=== PATIENT | female | born 1965 | race Caucasian/White ===

== ENCOUNTER 2020-02-18 06:45 | Outpatient (REF) | payer OTHER, SELFPAY ==
[2020-02-18 07:47] LABS: MANUAL DIFF FLAG NO
[2020-02-18 07:53] LABS: Basophils Absolute Auto 0.1 X10*3/uL (0.0-0.2); Basophils Percent Auto 0.5 % (0-2); Eosinophils Absolute Auto 0.2 X10*3/uL (0.0-0.4); Eosinophils Percent Auto 1.6 % (0-4); Hematocrit 44.4 % (37-47); Hemoglobin 14.3 g/dl (12.0-16.0); Imm Gran Abs Auto 0.07 X10*3/uL (0.00-0.03); Imm Gran Pct Auto 0.7 % (0.0-0.4); Lymphocytes Absolute Auto 2.8 X10*3/uL (1.2-4.9); Lymphocytes Percent Auto 29.3 % (20-40); Mean Corpuscular HGB Conc 32.2 g/dl (31.0-35.0); Mean Corpuscular Hemoglobin 29.6 pg (27.0-33.0); Mean Corpuscular Volume 91.9 fL (80-98); Mean Platelet Volume 9.8 fL (9.4-12.3); Monocytes Absolute Auto 0.4 X10*3/uL (0.1-1.2); Neutrophils Absolute Auto 6.2 X10*3/uL (2.0-8.3); Neutrophils Percent Auto 63.9 % (45-73); Platelet Count 294 X10*3/uL (160-400); Red Blood Count 4.83 X10*6/uL (4.20-5.50); Red Cell Distribution Width 13.1 % (11.0-16.0); White Blood Count 9.6 X10*3/uL (4.8-10.8)
[2020-02-18 08:06] LABS: Glucose Urine UA NEG (NEG); Leukocyte Esterase Urine NEG (NEG); Nitrite Urine NEG (NEG); Specific Gravity - Urine >= 1.030 (1.005-1.025); Urine Blood NEG (NEG); Urine Ketones NEG (NEG); Urine Protein NEG (NEG-TRACE)
[2020-02-18 08:07] LABS: Appearance Urine CLEAR; Color Urine YELLOW
[2020-02-18 08:27] LABS: Alanine Aminotransferase 79 U/L (0-31); Albumin Level 3.9 g/dL (3.5-5.0); Alkaline Phosphatase 96 U/L (39-117); Anion Gap 13 (12-20); Aspartate Amino Transferase 53 U/L (5-31); Bilirubin Total 0.4 mg/dL (0.0-1.0); Blood Urea Nitrogen 9 mg/dL (9-16); Calcium 8.4 mg/dL (8.4-10.2); Carbon Dioxide 26 mmol/L (22-29); Chloride 103 mmol/L (96-108); Cholesterol 215 mg/dL; Estimated Glomerular Filt Rate > 60; Glucose Fasting 165 mg/dL (60-99); HDL Cholesterol 26 mg/dL; LDL Cholesterol Calculated 130 mg/dl; Potassium 4.5 mmol/l (3.3-5.1); Sodium 137 mmol/L (135-145); Total Protein 7.1 g/dL (6.5-8.0); Triglycerides 296 mg/dL
[2020-02-18 08:34] LABS: TSH reflex Free T4 2.45 mIU/mL (0.32-4.0); Vitamin D 25-OH Total 35.4 ng/mL (>30)
[2020-02-18 10:14] LABS: Creatinine Urine 95.13 mg/dL; Microalbum/Creatinine Ratio Ur 9.4 ug/mg cr
== END 2020-02-18 06:46 | disposition home or self-care (01) ==
LOC: HO.LAB 06:45
PROVIDERS: Visit Provider Internal Medicine
DX: G47.33 Obstructive sleep apnea (adult) (pediatric) (principal); R53.83 Other fatigue; F17.200 Nicotine dependence, unspecified, uncomplicated; E11.9 Type 2 diabetes mellitus without complications; E78.00 Pure hypercholesterolemia, unspecified; E55.9 Vitamin D deficiency, unspecified
CPT/HCPCS: 36415; 80053; 80061; 81003; 82043; 82306; 84443; 85025

== ENCOUNTER 2020-04-24 09:23 | Outpatient (REF) | payer OTHER, SELFPAY | END 2020-04-24 09:24 | disposition home or self-care (01) | LOC: HO.LAB 09:23 | PROVIDERS: Visit Provider Internal Medicine | DX: Z20.822 Contact with and (suspected) exposure to COVID-19 (principal) | CPT/HCPCS: 36415; C9803; U0003 ==

== ENCOUNTER 2020-06-28 06:47 | Outpatient (REF) | payer OTHER, SELFPAY ==
[2020-06-28 07:14] LABS: MANUAL DIFF FLAG NO
[2020-06-28 07:22] LABS: Basophils Percent Auto 0.4 % (0-2); Eosinophils Absolute Auto 0.1 X10*3/uL (0.0-0.4); Eosinophils Percent Auto 1.4 % (0-4); Hemoglobin 14.8 g/dl (12.0-16.0); Imm Gran Abs Auto 0.11 X10*3/uL (0.00-0.03); Imm Gran Pct Auto 1.1 % (0.0-0.4); Lymphocytes Absolute Auto 2.9 X10*3/uL (1.2-4.9); Lymphocytes Percent Auto 28.9 % (20-40); Mean Corpuscular HGB Conc 32.9 g/dl (31.0-35.0); Mean Corpuscular Hemoglobin 29.8 pg (27.0-33.0); Mean Corpuscular Volume 90.7 fL (80-98); Mean Platelet Volume 10.1 fL (9.4-12.3); Monocytes Absolute Auto 0.5 X10*3/uL (0.1-1.2); Monocytes Percent Auto 4.4 % (2-11); Neutrophils Absolute Auto 6.5 X10*3/uL (2.0-8.3); Neutrophils Percent Auto 63.8 % (45-73); Platelet Count 289 X10*3/uL (160-400); Red Blood Count 4.96 X10*6/uL (4.20-5.50); White Blood Count 10.2 X10*3/uL (4.8-10.8)
[2020-06-28 07:57] LABS: Alanine Aminotransferase 79 U/L (0-31); Albumin Level 3.9 g/dL (3.5-5.0); Alkaline Phosphatase 122 U/L (39-117); Anion Gap 16 (12-20); Aspartate Amino Transferase 51 U/L (5-31); Bilirubin Total 0.8 mg/dL (0.0-1.0); Blood Urea Nitrogen 14 mg/dL (9-16); Calcium 9.1 mg/dL (8.4-10.2); Carbon Dioxide 27 mmol/L (22-29); Chloride 99 mmol/L (96-108); Cholesterol 222 mg/dL; Estimated Glomerular Filt Rate > 60; Gamma Glutamyl Transpeptidase 124 U/L (7-33); Glucose Fasting 238 mg/dL (60-99); HDL Cholesterol 28 mg/dL; LDL Cholesterol Calculated 129 mg/dl; Potassium 4.5 mmol/L (3.3-5.1); Sodium 137 mmol/L (135-145); Total Protein 7.2 g/dL (6.5-8.0); Triglycerides 328 mg/dL; Uric Acid 6.4 mg/dL (2.4-5.7)
[2020-06-28 08:06] LABS: Glucose Urine UA 100 MG/DL (NEG); Leukocyte Esterase Urine NEG (NEG); Nitrite Urine NEG (NEG); PH 6.5 (5.0-8.0); Specific Gravity - Urine 1.025 (1.005-1.025); Urine Blood NEG (NEG); Urine Ketones NEG (NEG); Urine Protein NEG (NEG-TRACE)
[2020-06-28 08:08] LABS: Erythrocyte Sedimentation Rate 29 MM/HR (0-20); Estimated Average Glucose 226 mg/dL; Hemoglobin A1c % 9.5 %
[2020-06-28 08:10] LABS: Appearance Urine CLEAR; Color Urine YELLOW; UACC Culture Trigger NO
[2020-06-28 08:16] LABS: TSH reflex Free T4 2.81 uIU/mL (0.32-4.0); Vitamin D 25-OH Total 40.3 ng/mL (>30)
[2020-06-28 08:24] LABS: Microalbum/Creatinine Ratio Ur 18.3 ug/mg cr
[2020-06-28 08:34] LABS: HBsAGNum1 0.19 S/CO (0.00-0.99); Hepatitis A Antibody IgM 0.15 Index (0-0.79); Hepatitis B Surface Antigen Negative (Negative); ~Hepatitis A Antibody IgM Nonreactive (Nonreactive)
[2020-06-28 08:57] LABS: HBS Num1 0.17 mIU/mL (0-7.99); HBc Num1 0.08 S/CO (0.00-0.79); Hepatitis B Core Antibody Nonreactive (Nonreactive); ~Hepatitis B Surface Antibody NONREACTIVE (Nonreactive); ~Hepatitis C Antibody Nonreactive (Nonreactive)
== END 2020-06-28 06:48 | disposition home or self-care (01) ==
LOC: HO.LAB 06:47
PROVIDERS: PCP Internal Medicine; Visit Provider Internal Medicine
DX: E11.9 Type 2 diabetes mellitus without complications (principal); R79.89 Other specified abnormal findings of blood chemistry; G47.33 Obstructive sleep apnea (adult) (pediatric); F17.200 Nicotine dependence, unspecified, uncomplicated; E78.00 Pure hypercholesterolemia, unspecified; M25.532 Pain in left wrist; E66.01 Morbid (severe) obesity due to excess calories; Z68.42 Body mass index [BMI] 45.0-49.9, adult; E55.9 Vitamin D deficiency, unspecified
CPT/HCPCS: 36415; 80053; 80061; 81003; 82043; 82306; 82977; 83036; 84443; 84550; 85025; 85652; 86704; 86706; 86709; 86803; 87340

== ENCOUNTER 2020-12-28 07:27 | Outpatient (REF) | payer OTHER, SELFPAY ==
[2020-12-28 08:11] LABS: MANUAL DIFF FLAG NO
[2020-12-28 08:20] LABS: Basophils Absolute Auto 0.1 X10*3/uL (0.0-0.2); Basophils Percent Auto 0.5 % (0-2); Eosinophils Absolute Auto 0.2 X10*3/uL (0.0-0.4); Eosinophils Percent Auto 1.5 % (0-4); Hemoglobin 14.8 g/dl (12.0-16.0); Lymphocytes Absolute Auto 2.9 X10*3/uL (1.2-4.9); Lymphocytes Percent Auto 28.6 % (20-40); Mean Corpuscular HGB Conc 32.2 g/dl (31.0-35.0); Mean Corpuscular Hemoglobin 29.4 pg (27.0-33.0); Mean Corpuscular Volume 91.3 fL (80-98); Mean Platelet Volume 10.4 fL (9.4-12.3); Monocytes Absolute Auto 0.5 X10*3/uL (0.1-1.2); Monocytes Percent Auto 4.5 % (2-11); Neutrophils Absolute Auto 6.5 X10*3/uL (2.0-8.3); Neutrophils Percent Auto 63.9 % (45-73); Platelet Count 298 X10*3/uL (160-400); Red Blood Count 5.04 X10*6/uL (4.20-5.50); Red Cell Distribution Width 13.2 % (11.0-16.0); White Blood Count 10.2 X10*3/uL (4.8-10.8)
[2020-12-28 08:23] LABS: Estimated Average Glucose 197 mg/dL; Hemoglobin A1c % 8.5 %
[2020-12-28 08:28] LABS: Appearance Urine CLEAR; Color Urine YELLOW; Glucose Urine UA NEG (NEG); Leukocyte Esterase Urine NEG (NEG); Nitrite Urine NEG (NEG); Specific Gravity - Urine >= 1.030 (1.005-1.025); Urine Blood NEG (NEG); Urine Ketones NEG (NEG); Urine Protein NEG (NEG-TRACE)
[2020-12-28 08:38] LABS: Creatinine Urine 124.19 mg/dL; Microalbum/Creatinine Ratio Ur 16.9 ug/mg cr
[2020-12-28 08:42] LABS: Alanine Aminotransferase 88 U/L (0-31); Alkaline Phosphatase 110 U/L (39-117); Anion Gap 14 (12-20); Aspartate Amino Transferase 61 U/L (5-31); Bilirubin Total 0.2 mg/dL (0.0-1.0); Blood Urea Nitrogen 14 mg/dL (9-16); Calcium 9.4 mg/dL (8.4-10.2); Carbon Dioxide 26 mmol/L (22-29); Chloride 103 mmol/L (96-108); Cholesterol 219 mg/dL; Estimated Glomerular Filt Rate > 60; Glucose Fasting 207 mg/dL (60-99); HDL Cholesterol 26 mg/dL; LDL Cholesterol Calculated 118 mg/dl; Potassium 4.6 mmol/L (3.3-5.1); Sodium 138 mmol/L (135-145); Total Protein 7.4 g/dL (6.5-8.0); Triglycerides 378 mg/dL
[2020-12-28 09:07] LABS: TSH reflex Free T4 2.45 uIU/mL (0.32-4.0); Vitamin D 25-OH Total 47.4 ng/mL (>30)
[2020-12-30 14:46] LABS: C Peptide 6.63 ng/mL (0.80-3.85)
[2021-01-02 19:26] LABS: Glutamic acid decarboxylase Ab <5 IU/mL (<5)
== END 2020-12-28 07:28 | disposition home or self-care (01) ==
LOC: HO.LAB 07:27
PROVIDERS: PCP Internal Medicine; Visit Provider Internal Medicine
DX: E11.65 Type 2 diabetes mellitus with hyperglycemia (principal); F17.200 Nicotine dependence, unspecified, uncomplicated; G47.33 Obstructive sleep apnea (adult) (pediatric); E78.00 Pure hypercholesterolemia, unspecified; R79.89 Other specified abnormal findings of blood chemistry; E66.01 Morbid (severe) obesity due to excess calories; Z68.42 Body mass index [BMI] 45.0-49.9, adult; E55.9 Vitamin D deficiency, unspecified
CPT/HCPCS: 36415; 80053; 80061; 81003; 82043; 82306; 83036; 84443; 84681; 85025; 86341

== ENCOUNTER 2021-04-23 10:28 | Outpatient (REF) | payer OTHER, SELFPAY ==
[2021-04-23 11:22] LABS: COVID-19 Test Negative (Negative); IDNOW Serial# 16C4AD1C
== END 2021-04-23 10:29 | disposition home or self-care (01) ==
LOC: HO.LAB 10:28
PROVIDERS: Visit Provider Internal Medicine
DX: Z20.822 Contact with and (suspected) exposure to COVID-19 (principal)
CPT/HCPCS: 87635; C9803

== ENCOUNTER 2021-05-17 06:42 | Outpatient (REF) | payer OTHER, SELFPAY ==
[2021-05-17 06:54] LABS: MANUAL DIFF FLAG NO
[2021-05-17 07:31] LABS: Basophils Absolute Auto 0.1 X10*3/uL (0.0-0.2); Basophils Percent Auto 0.5 % (0-2); Eosinophils Absolute Auto 0.2 X10*3/uL (0.0-0.4); Eosinophils Percent Auto 1.9 % (0-4); Hematocrit 45.1 % (37.0-47.0); Hemoglobin 14.8 g/dl (12.0-16.0); Imm Gran Abs Auto 0.12 X10*3/uL (0.00-0.03); Imm Gran Pct Auto 1.1 % (0.0-0.4); Lymphocytes Absolute Auto 3.5 X10*3/uL (1.2-4.9); Lymphocytes Percent Auto 32.8 % (20-40); Mean Corpuscular HGB Conc 32.8 g/dl (31.0-35.0); Mean Corpuscular Hemoglobin 29.4 pg (27.0-33.0); Mean Corpuscular Volume 89.7 fL (80.0-98.0); Mean Platelet Volume 9.6 fL (9.4-12.3); Monocytes Absolute Auto 0.5 X10*3/uL (0.1-1.2); Monocytes Percent Auto 4.5 % (2-11); Neutrophils Absolute Auto 6.4 x10*3/uL (2.0-8.3); Neutrophils Percent Auto 59.2 % (45-73); Platelet Count 299 X10*3/uL (160-400); Red Blood Count 5.03 X10*6/uL (4.20-5.50); Red Cell Distribution Width 13.2 % (11.0-16.0); White Blood Count 10.7 X10*3/uL (4.8-10.8)
[2021-05-17 08:04] LABS: Alanine Aminotransferase 85 U/L (0-31); Albumin Level 3.9 g/dL (3.5-5.0); Alkaline Phosphatase 101 U/L (39-117); Anion Gap 12 (12-20); Aspartate Amino Transferase 60 U/L (5-31); Bilirubin Total 0.4 mg/dL (0.0-1.0); Blood Urea Nitrogen 12 mg/dL (9-16); Carbon Dioxide 28 mmol/L (22-29); Chloride 101 mmol/L (96-108); Cholesterol 238 mg/dL; Estimated Glomerular Filt Rate > 60; Glucose Fasting 159 mg/dL (60-99); HDL Cholesterol 29 mg/dL; LDL Cholesterol Calculated 147 mg/dl; Potassium 4.7 mmol/L (3.3-5.1); Sodium 136 mmol/L (135-145); Total Protein 7.7 g/dL (6.5-8.0); Triglycerides 310 mg/dL
[2021-05-17 08:14] LABS: TSH reflex Free T4 2.67 uIU/mL (0.32-4.0); Vitamin D 25-OH Total 71.8 ng/mL (>30)
[2021-05-17 08:42] LABS: Estimated Average Glucose 174 mg/dL; Hemoglobin A1c % 7.7 %
[2021-05-17 09:25] LABS: Folate 18.7 ng/mL (> or = 4.0); Vitamin B12 775 pg/mL (200-900)
== END 2021-05-17 06:43 | disposition home or self-care (01) ==
LOC: HO.LAB 06:42
PROVIDERS: PCP Internal Medicine; Visit Provider Internal Medicine
DX: E11.40 Type 2 diabetes mellitus with diabetic neuropathy, unspecified (principal); I10 Essential (primary) hypertension; E78.00 Pure hypercholesterolemia, unspecified; E55.9 Vitamin D deficiency, unspecified
CPT/HCPCS: 36415; 80053; 80061; 82306; 82607; 82746; 83036; 84443; 85025

== ENCOUNTER 2021-05-18 | Outpatient (REF) | payer OTHER, SELFPAY ==
[2021-05-18 08:45] LABS: Appearance Urine HAZY; Color Urine YELLOW; Glucose Urine UA NEG (NEG); Leukocyte Esterase Urine NEG (NEG); Nitrite Urine POS (NEG); PH 5.5 (5.0-8.0); Specific Gravity - Urine >= 1.030 (1.005-1.025); UACC Culture Trigger YES; Urine Blood NEG (NEG); Urine Ketones NEG (NEG); Urine Protein NEG (NEG-TRACE)
[2021-05-18 09:12] LABS: Bacteria Urine 3+ /LPF; Calcium Oxalate Crystals Urine 2+ /LPF; RBC Urine 0 /HPF (0); Squamous Epithelial Cell Urine 1+ /LPF; WBC Urine 0-2 /HPF (0-4)
[2021-05-18 09:13] LABS: Uric Acid Crystals Urine TRACE /LPF
[2021-05-18 09:46] LABS: Creatinine Urine 216.62 mg/dL; Microalbum/Creatinine Ratio Ur 6.4 ug/mg cr
== END 2021-05-18 00:01 | disposition home or self-care (01) ==
LOC: HO.LNP
PROVIDERS: Visit Provider Internal Medicine
DX: I10 Essential (primary) hypertension (principal)
CPT/HCPCS: 81001; 82043; 87086

== ENCOUNTER 2021-06-20 07:44 | Outpatient (REF) | payer OTHER, SELFPAY ==
--- NOTE | ~2021-06-20 | US_ITS ---
EXAMINATION: US ABDOMEN COMPLETE CLINICAL INFORMATION: Elevated LFTs. COMPARISON: None TECHNIQUE: Real-time imaging of the abdominal viscera. Technically limited study secondary to body habitus. FINDINGS: PANCREAS: Normal. ABDOMINAL AORTA: Visualized aorta is normal in caliber however portions are obscured by bowel gas. INFERIOR VENA CAVA: Visualized portions are normal. LIVER: Liver is enlarged measuring 24.7 cm in span. The liver contour is normal. There is diffuse increased liver parenchymal echogenicity, consistent with hepatic steatosis with focal fatty sparing. No focal hepatic lesion. There is no intrahepatic biliary duct dilatation seen. GALLBLADDER: Normal. The gallbladder is physiologically distended without evidence of stones, sludge, polyps, wall thickening or pericholecystic fluid. COMMON BILE DUCT: Normal in caliber measuring 0.3 cm in diameter. RIGHT KIDNEY: Normal. No hydronephrosis. No renal calculi or focal parenchymal lesions. The kidney measures 12.0 cm in maximum dimension. LEFT KIDNEY: Likely benign 2.2 cm right renal cyst with a mural calcification, no imaging follow-up recommended. No hydronephrosis or renal calculi. The kidney measures 12.9 cm in maximum dimension. SPLEEN: The spleen measures 12.4 cm in maximum dimension which is within normal limits. FREE FLUID: None. US/US abdomen complete IMPRESSION: Hepatomegaly and hepatic steatosis.
== END 2021-06-20 07:45 | disposition home or self-care (01) ==
LOC: HO.US 07:44
PROVIDERS: PCP Internal Medicine; Visit Provider Internal Medicine
DX: R79.89 Other specified abnormal findings of blood chemistry (principal)
CPT/HCPCS: 76700

== ENCOUNTER 2021-08-22 08:20 | Outpatient (REF) | payer OTHER, SELFPAY ==
[2021-08-22 08:45] LABS: MANUAL DIFF FLAG NO
[2021-08-22 09:08] LABS: Basophils Absolute Auto 0.1 X10*3/uL (0.0-0.2); Basophils Percent Auto 0.5 % (0-2); Eosinophils Absolute Auto 0.2 X10*3/uL (0.0-0.4); Eosinophils Percent Auto 1.5 % (0-4); Hematocrit 43.8 % (37.0-47.0); Hemoglobin 14.4 g/dl (12.0-16.0); Imm Gran Abs Auto 0.06 X10*3/uL (0.00-0.03); Imm Gran Pct Auto 0.5 % (0.0-0.4); Lymphocytes Absolute Auto 3.4 X10*3/uL (1.2-4.9); Lymphocytes Percent Auto 31.1 % (20-40); Mean Corpuscular HGB Conc 32.9 g/dl (31.0-35.0); Mean Corpuscular Hemoglobin 29.6 pg (27.0-33.0); Mean Corpuscular Volume 90.1 fL (80.0-98.0); Monocytes Absolute Auto 0.5 X10*3/uL (0.1-1.2); Monocytes Percent Auto 4.1 % (2-11); Neutrophils Absolute Auto 6.9 x10*3/uL (2.0-8.3); Neutrophils Percent Auto 62.3 % (45-73); Platelet Count 293 X10*3/uL (160-400); Red Blood Count 4.86 X10*6/uL (4.20-5.50); Red Cell Distribution Width 13.4 % (11.0-16.0)
[2021-08-22 09:23] LABS: Estimated Average Glucose 163 mg/dL; Hemoglobin A1c % 7.3 %
[2021-08-22 09:32] LABS: Alanine Aminotransferase 69 U/L (0-31); Alkaline Phosphatase 95 U/L (39-117); Anion Gap 11 (12-20); Aspartate Amino Transferase 49 U/L (5-31); Bilirubin Total 0.6 mg/dL (0.0-1.0); Blood Urea Nitrogen 14 mg/dL (9-16); Calcium 9.6 mg/dL (8.4-10.2); Carbon Dioxide 28 mmol/L (22-29); Chloride 101 mmol/L (96-108); Cholesterol 239 mg/dL; Estimated Glomerular Filt Rate > 60; Glucose Fasting 129 mg/dL (60-99); HDL Cholesterol 28 mg/dL; LDL Cholesterol Calculated 155 mg/dl; Potassium 4.3 mmol/L (3.3-5.1); Sodium 136 mmol/L (135-145); Total Protein 7.6 g/dL (6.5-8.0); Triglycerides 282 mg/dL
[2021-08-22 09:45] LABS: Uric Acid 8.7 mg/dL (2.4-5.7)
[2021-08-22 09:53] LABS: TSH reflex Free T4 2.69 uIU/mL (0.32-4.0); Vitamin D 25-OH Total 61.1 ng/mL (>30)
[2021-08-22 10:15] LABS: Appearance Urine HAZY; Color Urine YELLOW; Glucose Urine UA NEG (NEG); Leukocyte Esterase Urine NEG (NEG); Nitrite Urine NEG (NEG); PH 5.5 (5.0-8.0); UACC Culture Trigger NO; Urine Blood 3+ (NEG); Urine Ketones NEG (NEG); Urine Protein NEG (NEG-TRACE)
[2021-08-22 10:35] LABS: Creatinine Urine 55.11 mg/dL; Microalbum/Creatinine Ratio Ur 30.8 ug/mg cr
[2021-08-22 11:24] LABS: Squamous Epithelial Cell Urine 1+ /LPF; WBC Urine 0 /HPF (0-4)
== END 2021-08-22 08:21 | disposition home or self-care (01) ==
LOC: HO.LAB 08:20
PROVIDERS: PCP Internal Medicine; Visit Provider Internal Medicine
DX: E78.00 Pure hypercholesterolemia, unspecified (principal); E11.9 Type 2 diabetes mellitus without complications; E55.9 Vitamin D deficiency, unspecified; I10 Essential (primary) hypertension; E79.0 Hyperuricemia without signs of inflammatory arthritis and tophaceous disease
CPT/HCPCS: 36415; 80053; 80061; 81001; 82043; 82306; 83036; 84443; 84550; 85025

== ENCOUNTER 2021-10-03 08:58 | Outpatient (REF) | payer OTHER, SELFPAY ==
[2021-10-03 10:34] LABS: INTERNATIONAL NORM RATIO 0.9 (0.9-1.1); Prothrombin Time 10.7 SEC (10.0-13.1)
[2021-10-03 11:11] LABS: Bilirubin Direct < 0.2 mg/dL (0.0-0.5); Bilirubin Total 0.3 mg/dL (0.0-1.0); C Reactive Protein 2.54 mg/dL (< or = 0.50)
[2021-10-03 11:16] LABS: HBS Num1 1.17 mIU/mL (0-7.99); HBsAGNum1 0.18 S/CO (0.00-0.99); HIV AB/AG Nonreactive (Nonreactive); HIV Num 1 0.07 S/CO (0.00-0.99); Hepatitis A Antibody IgM 0.16 Index (0-0.79); Hepatitis B Core Antibody Nonreactive (Nonreactive); Hepatitis B Surface Antigen Negative (Negative); ~HepC Num1 0.08 S/CO (0.00-0.79); ~Hepatitis A Antibody IgM Nonreactive (Nonreactive); ~Hepatitis B Surface Antibody NONREACTIVE (Nonreactive); ~Hepatitis C Antibody Nonreactive (Nonreactive)
[2021-10-03 11:34] LABS: Ferritin 258 ng/mL (10-250)
[2021-10-05 14:42] LABS: Ceruloplasmin 35 mg/dL (18-53)
[2021-10-09 21:52] LABS: Smooth Muscle Antibody <20 U (<20)
[2021-10-10 01:33] LABS: FIB-ALT 69 U/L (6-29); FIB-Alpha-2-Macroglobulin 245 mg/dL (106-279); FIB-Apolipoprotein A1 130 mg/dL (101-198); FIB-GGT 74 U/L (3-70); FIB-Haptoglobin 351 mg/dL (43-212); FIB-Total Bilirubin 0.3 mg/dL (0.2-1.2); Liver Fibrosis Score 0.19; Liver Fibrosis Stage F0; Nec Inflam Act Grade A1-A2; Nec Inflam Act Score 0.37
[2021-10-12 15:31] LABS: Mitochondrial Antibodies NEGATIVE (NEGATIVE)
== END 2021-10-03 08:59 | disposition home or self-care (01) ==
LOC: HO.LAB 08:58
PROVIDERS: PCP Internal Medicine; Visit Provider Nurse Practitioner Family
DX: Z01.818 Encounter for other preprocedural examination (principal); Z11.4 Encounter for screening for human immunodeficiency virus [HIV]; R10.9 Unspecified abdominal pain; K58.9 Irritable bowel syndrome, unspecified; R79.89 Other specified abnormal findings of blood chemistry; R17 Unspecified jaundice; R74.8 Abnormal levels of other serum enzymes
CPT/HCPCS: 36415; 81596; 82105; 82247; 82248; 82390; 82728; 85610; 86015; 86140; 86255; 86256; 86704; 86706; 86709; 86803; 87340; 87389; 99202

== ENCOUNTER 2022-04-23 08:19 | Day surgery (SDC) | payer OTHER, SELFPAY ==
--- NOTE | 2022-04-22 13:05 | P.CONAN_ITS ---
Documented by User: Tiffany Chester NP 04/22/22 13:06 HPI - Anesthesia Eval Consult details Narrative: 56yo F for Colonoscopy PMFSH Active Problems Active Problems: All Active Problems (Updated 07/27/21 @ 12:44 by Durga Dietz MD) Hepatomegaly (Acute) Colon cancer screening (Acute) Annual physical exam (Acute) Diabetic neuropathy (Acute) Onychomycosis (Acute) Abscess of skin (Acute) Left wrist pain (Acute) Elevated LFTs (Acute) Morbid obesity with BMI of 45.0-49.9, adult (Acute) Smoker (Acute) Vitamin D deficiency (Acute) Bilateral carpal tunnel syndrome (Acute) Obstructive sleep apnea (Acute) Pure hypercholesterolemia (Acute) Diabetes mellitus (Acute) Past Medical History Medical History Bilateral carpal tunnel syndrome Diabetes mellitus Elevated LFTs Left wrist pain Morbid obesity with BMI of 45.0-49.9, adult Obstructive sleep apnea Onychomycosis Pure hypercholesterolemia Smoker Vitamin D deficiency Family History Family History Maternal Aunt Breast cancer Daughter Hyperthyroidism Di Duy's syndrome Mental health problem Surgical History Surgical History History of carpal tunnel release History of nasal surgery Social History Social History (Updated 04/23/22 @ 09:14 by Tamara Adkins MD) Housing: Apartment Alcohol intake: never Patient Tobacco Use Status: Current everyday Tobacco user Tobacco use type: Cigarette Cigarettes Per Day: 10 Years Smoked: 38 Smoked in Last 30 Days: Yes Second Hand Smoke Exposure: Yes Use of substances other than those prescribed or required for medical reasons: No Are you DNR?: No Advance Directives: No Advance Directives Information Provided: Yes service: No Current occupational status: employed 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 Meds Allergies Allergy/AdvReac Type Severity Reaction Status Date / Time No Known Allergies Allergy Verified 03/07/22 12:18 [No Known Allergies*] Home Medications Medication Instructions Recorded Confirmed Last Taken Type cholecalciferol (vitamin D3) 50 50 mcg PO DAILY 02/04/20 04/17/22 Unknown History mcg (2,000 unit) capsule ujuqjoaw-uhq-yinow ac 400 1 tab PO .QD 02/04/20 04/17/22 Unknown History mcg-calcium carb 500 mg-vit K1 20 mcg tablet (Women's 50 Plus Multivitamin) Exam Exam Date and Time: April 22, 2022 1305 Pertinent Lab Results Pertinent Lab Results: Laboratory Tests 08/22/21 08/22/21 08:44 08:44 WBC 11.0 H Hgb 14.4 Hct 43.8 Plt Count 293 Sodium 136 Potassium 4.3 Chloride 101 Carbon Dioxide 28 BUN 14 Creatinine 0.73 Assessment and Plan Assessment Anesthesia Assessment: Chart Reviewed Documented by User: Tamara Adkins MD 04/23/22 09:44 PMFSH Active Problems Active Problems: All Active Problems (Updated 07/27/21 @ 12:44 by Durga Dietz MD) Hepatomegaly (Acute) Colon cancer screening (Acute) Annual physical exam (Acute) Diabetic neuropathy (Acute) Onychomycosis (Acute) Abscess of skin (Acute) Left wrist pain (Acute) Elevated LFTs (Acute) Morbid obesity with BMI of 45.0-49.9, adult (Acute) Smoker (Acute) Vitamin D deficiency (Acute) Bilateral carpal tunnel syndrome (Acute) Obstructive sleep apnea (Acute). On CPAP Pure hypercholesterolemia (Acute) Diabetes mellitus (Acute) Past Medical History Medical History Bilateral carpal tunnel syndrome Diabetes mellitus Elevated LFTs Left wrist pain Morbid obesity with BMI of 45.0-49.9, adult Obstructive sleep apnea Onychomycosis Pure hypercholesterolemia Smoker Vitamin D deficiency Family History Family History Maternal Aunt Breast cancer Daughter Hyperthyroidism Di Duy's syndrome Mental health problem Family history of problems with anesthesia: No Surgical History Surgical History History of carpal tunnel release History of nasal surgery History of Problems with Anesthesia: No Social History Social History (Updated 04/23/22 @ 09:14 by Tamara Adkins MD) Housing: Apartment Alcohol intake: never Patient Tobacco Use Status: Current everyday Tobacco user Tobacco use type: Cigarette Cigarettes Per Day: 10 Years Smoked: 38 Smoked in Last 30 Days: Yes Second Hand Smoke Exposure: Yes Use of substances other than those prescribed or required for medical reasons: No Are you DNR?: No Advance Directives: No Advance Directives Information Provided: Yes service: No Current occupational status: employed Current occupation: [employer] Allergies Allergy/AdvReac Type Severity Reaction Status Date / Time No Known Allergies Allergy Verified 03/07/22 12:18 [No Known Allergies*] Home Medications Medication Instructions Recorded Confirmed Last Taken Type cholecalciferol (vitamin D3) 50 50 mcg PO DAILY 02/04/20 04/17/22 Unknown History mcg (2,000 unit) capsule qmcvsnjk-zty-xcxbi ac 400 1 tab PO .QD 02/04/20 04/17/22 Unknown History mcg-calcium carb 500 mg-vit K1 20 mcg tablet (Women's 50 Plus Multivitamin) Exam Height,Weight and Vital Signs: Height 5 ft 2 in Weight 117.934 kg Vital Signs Temp Pulse Resp BP Pulse Ox O2 Del Method 04/23/22 08:54 98.3 F 77 18 107/60 95 Room Air Pertinent Lab Results Pertinent Lab Results: Laboratory Tests 08/22/21 08/22/21 08:44 08:44 WBC 11.0 H Hgb 14.4 Hct 43.8 Plt Count 293 Sodium 136 Potassium 4.3 Chloride 101 Carbon Dioxide 28 BUN 14 Creatinine 0.73 Lab Results 04/23/22 Range/Units 08:58 POC Glucose 163 H (60-115) mg/dL Airway Mallampati Class: II TM Dist: >3cm Neck ROM: Full (Short fat neck) Loose/Missing/Broken Teeth: Yes (Missing many top front. Broken 1 top front) Heart: RRR Lungs: CTAB Assessment and Plan Assessment Anesthesia Assessment: Anesthesia Plan Discussed Final Anesthetic Review Family History of Problems with Anesthesia: No History of Problems with Anesthesia: No NPO: Yes ASA Class: III Final Preanesthetic Review: No Changes in Pt Med Stat, Meds/Allgs Chart Reviewed, Consent Obtained/Reviewed and Anes Risks/Benef Reviewed Patient Risk: Intermediate Procedure Risk: Low Assessment/Block/Sedation in SS: Assess/Block/Sedation-SS Anesthetic Plan Anesthetic Plan: MAC: Disposition: Standard PACU
[2022-04-23 08:29] VITALS: BMI 47.5
--- NOTE | 2022-04-23 08:45 | MHC.SHP ---
Pre-Procedural Eval Section A Date of Service: 04/23/22 Section B Chief Complaint: screening Relevant Family History (Specify if Yes): No Relevant Social History: Tobacco Use Present Medications: see Short Stay Collaborative assessment Medical History: Significant History (Bilateral carpal tunnel syndrome Diabetes mellitus Elevated LFTs Left wrist pain Morbid obesity with BMI of 45.0-49.9, adult Obstructive sleep apnea Onychomycosis Pure hypercholesterolemia Smoker Vitamin D deficiency) History of Previous Operations: Relevant previous surgery/procedure and date(s) (History of carpal tunnel release History of nasal surgery) Allergies: Allergies Allergy/AdvReac Type Severity Reaction Status Date / Time No Known Allergies Allergy Verified 03/07/22 12:18 [No Known Allergies*] Review of Systems Sugical H&P ROS: Negative: Constitution, Cardiovascular, Respiratory, Neurological, Psychiatric, Hem-Onc, Allergic/Immunologic, Gastrointestinal, Genitourinary, Musculoskeletal, Integumentary, Endocrine and Eyes/Ears/Nose/Throat Exam Surgical H&P Exam: Normal: HEENT, Normal: Heart, Normal: Lungs, Normal: Extremities, Normal: Abdomen, Normal: Skin and Normal: Neurological Plan Diagnosis/Plan: Unchanged I have reviewed the history and physical and performed a pertinent physical examination on my patient. No changes have occurred unless specified. Time Spent With Patient Time: Total time managing care of this patient today ____ minutes.
--- NOTE | 2022-04-23 08:46 | P.OP_ITS ---
Operative Note Operative Note Date of Service: 04/23/22 Narrative: Operative Information Procedure Description: Colonoscopy Indication: screening Anesthesia: MAC COLONOSCOPY Instrument: Olympus variable stiffness pediatric scope 190L Colonoscopy Monitoring: Vital signs and clinical assessment, continuous EKG monitoring, Pulse oximetry, Carbon Dioxide monitoring and blood pressure monitoring were done throughout the procedure. Colon withdrawal time was 13 minutes. Procedure: The patient was placed in the left lateral decubitis position and pre-procedure medications were administered. After a digital rectal examination of the ano-rectum, the video colonoscope was inserted into the rectum and advanced through the colon to the cecum/TI. The colonoscope was slowly withdrawn in a retrograde panoramic fashion and the colon mucosa was carefully examined including a retroflexed view of the rectum. Findings and interventions are described below. Procedure Difficulty: easy Findings: Terminal Ileum-normal Cecum:normal Ascending Colon: normal Transverse Colon -normal Descending Colon:normal Sigmoid Colon: normal Rectum: Retroflexion with small internal hemorrhoids, grade I Anorectum - normal Colon preparation: [place] Bowel Preparation Scale Right colon; 2 Transverse colon: 1 Left colon; 1 (0 = Unprepared colon segment with mucosa not seen due to solid stool that cannot be cleared. 1 = Portion of mucosa of the colon segment seen, but other areas of the colon segment not well seen due to staining, residual stool and/or opaque liquid. 2 = Minor amount of residual staining, small fragments of stool and/or opaque liquid, but mucosa of colon segment seen well. 3 = Entire mucosa of colon segment seen well with no residual staining, small fragments of stool or opaque liquid) Impression and Post Procedure Diagnosis: internal hemorrhoids fair to poor prep Plan: High fiber diet leaflet Avoid straining at stool, epsom salts and sitz bath, anusol supps or cream Repeat Colonoscopy in 8 months to 1 year or earlier if clinically indicated, review prep again next time, might need 2 d of clears Above findings were reviewed with the patient and relevant handouts were provided if indicated.
[2022-04-23 08:54] VITALS: BP 107/60; PULSE 77; RESP 18; TEMP 36.8; O2SAT 95
[2022-04-23] MEDS: Lactated Ringers 1,000 ML 100 ML IVCONT (08:56)
[2022-04-23 09:02] LABS: Glucose, Whole Blood 163 mg/dL (60-115)
[2022-04-23 10:13] VITALS: BP 96/56; PULSE 83; RESP 18; TEMP 36.3; O2SAT 98
[2022-04-23 10:28] VITALS: BP 97/64; PULSE 76; RESP 18; TEMP 36.3; O2SAT 95
== END 2022-04-23 11:03 | disposition home or self-care (01) ==
PROVIDERS: PCP Internal Medicine; Visit Provider Internal Medicine Gastroenterology
PROC: 0DJD8ZZ Inspection of Lower Intestinal Tract, Via Natural or Artificial Opening Endoscopic (ICD-10-PCS; CPT 45378; principal; 2022-04-23 09:20)
DX: Z12.11 Encounter for screening for malignant neoplasm of colon (principal); K64.0 First degree hemorrhoids; G47.33 Obstructive sleep apnea (adult) (pediatric); Z99.89 Dependence on other enabling machines and devices; R16.0 Hepatomegaly, not elsewhere classified; R74.8 Abnormal levels of other serum enzymes; E55.9 Vitamin D deficiency, unspecified; E66.01 Morbid (severe) obesity due to excess calories; Z68.42 Body mass index [BMI] 45.0-49.9, adult; E11.9 Type 2 diabetes mellitus without complications; E78.00 Pure hypercholesterolemia, unspecified; F17.210 Nicotine dependence, cigarettes, uncomplicated
CPT/HCPCS: 45378; 82947; J2370

== ENCOUNTER → 2022-05-08 07:48 | Outpatient (BNVA) | payer OTHER, SELFPAY | PROVIDERS: PCP Internal Medicine; Referring Provider Internal Medicine; Visit Provider Nurse Practitioner Family | DX: R16.0 Hepatomegaly, not elsewhere classified (principal); R79.89 Other specified abnormal findings of blood chemistry; Z98.890 Other specified postprocedural states | CPT/HCPCS: 99212 ==

== ENCOUNTER 2022-05-09 08:31 | Outpatient (REF) | payer OTHER, SELFPAY ==
[2022-05-09 10:06] LABS: Alanine Aminotransferase 38 U/L (0-31); Alkaline Phosphatase 115 U/L (39-117); Aspartate Amino Transferase 26 U/L (5-31); Bilirubin Direct < 0.2 mg/dL (0.0-0.5); Bilirubin Total 0.4 mg/dL (0.0-1.0); Total Protein 7.2 g/dL (6.5-8.0)
== END 2022-05-09 08:32 | disposition home or self-care (01) ==
LOC: HO.LAB 08:31
PROVIDERS: PCP Internal Medicine; Visit Provider Nurse Practitioner Family
DX: R10.9 Unspecified abdominal pain (principal)
CPT/HCPCS: 36415; 80076

== ENCOUNTER 2022-06-13 07:30 | Outpatient (REF) | payer OTHER, SELFPAY ==
--- NOTE | ~2022-06-13 | US_ITS ---
EXAMINATION: US ABDOMEN LIMITED CLINICAL INFORMATION: Other specified abnormal findings of blood chemistry. COMPARISON: Ultrasound abdomen complete 06/20/2021. TECHNIQUE: Real-time imaging of the right upper quadrant abdominal viscera. FINDINGS: PANCREAS: Normal. LIVER: The liver contour is normal. There is diffuse increased liver parenchymal echogenicity, consistent with hepatic steatosis. No focal hepatic lesion. There is no intrahepatic biliary duct dilatation seen. GALLBLADDER: Normal. The gallbladder is physiologically distended without evidence of stones, sludge, polyps, wall thickening or pericholecystic fluid. COMMON BILE DUCT: Normal in caliber measuring 0.4 cm in diameter. RIGHT KIDNEY: Normal. No hydronephrosis. No renal calculi or focal parenchymal lesions. The kidney measures 12.3 cm in maximum dimension. FREE FLUID: None. US/US abdomen limited IMPRESSION: Hepatic steatosis.
[2022-06-13 07:42] LABS: MANUAL DIFF FLAG NO
[2022-06-13 08:22] LABS: Basophils Absolute Auto 0.1 X10*3/uL (0.0-0.2); Basophils Percent Auto 0.5 % (0-2); Eosinophils Absolute Auto 0.2 X10*3/uL (0.0-0.4); Eosinophils Percent Auto 1.7 % (0-4); Hematocrit 46.1 % (37.0-47.0); Hemoglobin 14.8 g/dl (12.0-16.0); Imm Gran Abs Auto 0.06 X10*3/uL (0.00-0.03); Imm Gran Pct Auto 0.6 % (0.0-0.4); Lymphocytes Percent Auto 29.1 % (20-40); Mean Corpuscular HGB Conc 32.1 g/dl (31.0-35.0); Mean Corpuscular Hemoglobin 28.5 pg (27.0-33.0); Mean Corpuscular Volume 88.7 fL (80.0-98.0); Mean Platelet Volume 10.1 fL (9.4-12.3); Monocytes Absolute Auto 0.5 X10*3/uL (0.1-1.2); Monocytes Percent Auto 4.6 % (2-11); Neutrophils Absolute Auto 6.6 x10*3/uL (2.0-8.3); Neutrophils Percent Auto 63.5 % (45-73); Platelet Count 289 X10*3/uL (160-400); Red Cell Distribution Width 13.6 % (11.0-16.0); White Blood Count 10.4 X10*3/uL (4.8-10.8)
[2022-06-13 09:14] LABS: Alanine Aminotransferase 31 U/L (0-31); Alkaline Phosphatase 102 U/L (39-117); Anion Gap 12 (12-20); Aspartate Amino Transferase 23 U/L (5-31); Bilirubin Total 0.5 mg/dL (0.0-1.0); Blood Urea Nitrogen 12 mg/dL (9-16); Calcium 9.2 mg/dL (8.4-10.2); Carbon Dioxide 28 mmol/L (22-29); Chloride 105 mmol/L (96-108); Cholesterol 184 mg/dL; Estimated Glomerular Filt Rate > 60; Glucose Fasting 133 mg/dL (60-99); HDL Cholesterol 31 mg/dL; LDL Cholesterol Calculated 101 mg/dl; Potassium 4.7 mmol/L (3.3-5.1); Sodium 140 mmol/L (135-145); Total Protein 7.3 g/dL (6.5-8.0); Triglycerides 263 mg/dL; Uric Acid 6.1 mg/dL (2.4-5.7)
[2022-06-13 09:25] LABS: TSH reflex Free T4 2.31 uIU/mL (0.32-4.0); Vitamin D 25-OH Total 86.9 ng/mL (>30)
[2022-06-13 09:40] LABS: Estimated Average Glucose 163 mg/dL; Hemoglobin A1c % 7.3 %
== END 2022-06-13 07:31 | disposition home or self-care (01) ==
LOC: HO.US 07:30
PROVIDERS: Absent Provider Internal Medicine; PCP Internal Medicine; Visit Provider Nurse Practitioner Family
DX: R79.89 Other specified abnormal findings of blood chemistry (principal); I10 Essential (primary) hypertension; E55.9 Vitamin D deficiency, unspecified; E78.00 Pure hypercholesterolemia, unspecified; E11.9 Type 2 diabetes mellitus without complications; M10.9 Gout, unspecified; R30.0 Dysuria
CPT/HCPCS: 36415; 76705; 80053; 80061; 82306; 83036; 84443; 84550; 85025

== ENCOUNTER 2022-08-14 09:09 | Outpatient (REF) | payer OTHER, SELFPAY ==
--- NOTE | 2022-08-14 09:45 | EMG_ITS ---
Please see scanned EMG / Nerve Conduction Report. MTDD
== END 2022-08-14 09:10 | disposition home or self-care (01) ==
LOC: HO.NEURO 09:09
PROVIDERS: PCP Internal Medicine; Visit Provider Internal Medicine
DX: G56.01 Carpal tunnel syndrome, right upper limb (principal)
CPT/HCPCS: 95885; 95910

== ENCOUNTER → 2022-08-21 08:08 | Outpatient (BNVA) | payer OTHER, SELFPAY | PROVIDERS: PCP Internal Medicine; Visit Provider Orthopaedic Surgery | DX: R20.0 Anesthesia of skin (principal); R20.2 Paresthesia of skin; G56.01 Carpal tunnel syndrome, right upper limb | CPT/HCPCS: 99202 ==

== ENCOUNTER 2022-09-23 08:17 | Day surgery (SDC) | payer OTHER, SELFPAY ==
[2022-09-23 08:42] VITALS: BP 130/62; PULSE 74; RESP 16; TEMP 36.2; O2SAT 95
[2022-09-23 08:51] VITALS: BMI 44.3
[2022-09-23 10:50] VITALS: BP 128/74; PULSE 67; RESP 17; O2SAT 95
--- NOTE | 2022-09-23 10:52 | MHC.SHP ---
Pre-Procedural Eval Section A Date of Service: 09/23/22 The patient is an INPATIENT: No Changes since office visit: No Cold of Flu in the past 2 weeks, No New Medical Problems, No Changes in Medication and No Patient answered all questions The History & Physical has been completed within 30 days and I have reviewed it.: Yes Section B Chief Complaint: Carpal tunnel syndrome, right upper limb Allergies: Allergies Allergy/AdvReac Type Severity Reaction Status Date / Time No Known Allergies Allergy Verified 08/21/22 08:23 [No Known Allergies*] Plan I have reviewed the history and physical and performed a pertinent physical examination on my patient. No changes have occurred unless specified. Time Spent With Patient Time: Total time managing care of this patient today ____ minutes.
--- NOTE | 2022-09-23 10:53 | W.PM.OPN ---
Operative Note Operative Note Date of Service: 09/23/22 Narrative: Preop diagnosis: 1. right Carpal tunnel syndrome Postop diagnosis: same Procedure: 1. right Carpal tunnel release Surgeon: Mariel Melo MD Anesthesia: local block using 1% lidocaine with epinephrine Findings: Thickened transverse carpal ligament. EBL: Less than 5 mL Specimens: None Complications: None Disposition: Brought to recovery room in stable condition Plan: Follow-up for 10-14 days for wound check and suture removal Indications: The patient is 56 years old, with right carpal tunnel syndrome that has been unresponsive to nonoperative management. The risks and benefits of operative treatment including but not limited to risk of damage to blood vessels, nerves, tendons, infection, persistent pain, persistent symptoms, or possible need for additional surgery were discussed with the patient and the patient wishes to proceed with surgery. Procedure: Once consent was obtained a local block was performed using a combination of 1% lidocaine with epinephrine. The patient was then brought back to the operating suite and placed on the operative table in supine position. The right upper extremity was prepped and draped in a standard surgical fashion. Once assured that we had a good block, a 2.0 cm longitudinal incision was made centered over the carpal tunnel. The incision was made through the skin to the subcutaneous tissues using a #15 blade. Dissection was made down to the level of the transverse carpal ligament with care being taken to protect the palmar cutaneous nerve. Once the transverse carpal ligament was clearly visualized, a longitudinal incision was made in the transverse carpal ligament 1st using a #15 blade, then using tenotomy scissors under direct visualization. Care was taken to look for and protect the motor branch of the median nerve when seen in this area. Once satisfied with our carpal tunnel release the wound was copiously irrigated with normal saline and hemostasis was obtained with a brief period of local pressure. The skin edges were reapproximated with some 5.0 nylon suture material and a sterile dressing was applied. The patient appears to have tolerated the procedure well and with no complications. All digits were well vascularized at the conclusion of the case.
== END 2022-09-23 10:53 | disposition home or self-care (01) ==
PROVIDERS: PCP Internal Medicine; Visit Provider Orthopaedic Surgery
PROC: (CPT 64721; principal; 2022-09-23 09:50)
DX: G56.01 Carpal tunnel syndrome, right upper limb (principal); R20.0 Anesthesia of skin; R20.2 Paresthesia of skin; E11.9 Type 2 diabetes mellitus without complications; R79.89 Other specified abnormal findings of blood chemistry; E66.01 Morbid (severe) obesity due to excess calories; Z68.41 Body mass index [BMI] 40.0-44.9, adult; G47.33 Obstructive sleep apnea (adult) (pediatric); E78.00 Pure hypercholesterolemia, unspecified; E55.9 Vitamin D deficiency, unspecified; F17.210 Nicotine dependence, cigarettes, uncomplicated
CPT/HCPCS: 64721; J0171

== ENCOUNTER 2022-09-25 08:00 | Outpatient (REF) | payer OTHER, SELFPAY ==
[2022-09-25 08:18] LABS: MANUAL DIFF FLAG NO
[2022-09-25 09:29] LABS: Basophils Absolute Auto 0.1 X10*3/uL (0.0-0.2); Basophils Percent Auto 0.5 % (0-2); Eosinophils Absolute Auto 0.2 X10*3/uL (0.0-0.4); Eosinophils Percent Auto 1.8 % (0-4); Hematocrit 47.1 % (37.0-47.0); Hemoglobin 14.9 g/dl (12.0-16.0); Imm Gran Abs Auto 0.07 X10*3/uL (0.00-0.03); Imm Gran Pct Auto 0.6 % (0.0-0.4); Lymphocytes Absolute Auto 3.5 X10*3/uL (1.2-4.9); Lymphocytes Percent Auto 32.5 % (20-40); Mean Corpuscular HGB Conc 31.6 g/dl (31.0-35.0); Mean Corpuscular Hemoglobin 28.4 pg (27.0-33.0); Mean Corpuscular Volume 89.9 fL (80.0-98.0); Mean Platelet Volume 10.1 fL (9.4-12.3); Monocytes Absolute Auto 0.4 X10*3/uL (0.1-1.2); Monocytes Percent Auto 3.8 % (2-11); Neutrophils Absolute Auto 6.6 x10*3/uL (2.0-8.3); Neutrophils Percent Auto 60.8 % (45-73); Platelet Count 302 X10*3/uL (160-400); Red Blood Count 5.24 X10*6/uL (4.20-5.50); Red Cell Distribution Width 14.2 % (11.0-16.0); White Blood Count 10.8 X10*3/uL (4.8-10.8)
[2022-09-25 09:41] LABS: Alanine Aminotransferase 26 U/L (0-31); Albumin Level 3.9 g/dL (3.5-5.0); Alkaline Phosphatase 103 U/L (39-117); Anion Gap 15 (12-20); Aspartate Amino Transferase 19 U/L (5-31); Bilirubin Total 0.4 mg/dL (0.0-1.0); Blood Urea Nitrogen 11 mg/dL (9-16); Calcium 9.6 mg/dL (8.4-10.2); Carbon Dioxide 26 mmol/L (22-29); Chloride 105 mmol/L (96-108); Cholesterol 172 mg/dL; Estimated Glomerular Filt Rate > 60; Glucose Fasting 110 mg/dL (60-99); HDL Cholesterol 30 mg/dL; LDL Cholesterol Calculated 88 mg/dl; Potassium 4.2 mmol/L (3.3-5.1); Sodium 142 mmol/L (135-145); Total Protein 7.8 g/dL (6.5-8.0); Triglycerides 273 mg/dL
[2022-09-25 09:47] LABS: Estimated Average Glucose 140 mg/dL; Hemoglobin A1c % 6.5 %
[2022-09-25 09:57] LABS: TSH reflex Free T4 3.16 uIU/mL (0.32-4.0); Vitamin D 25-OH Total 76.3 ng/mL (>30)
== END 2022-09-25 08:01 | disposition home or self-care (01) ==
LOC: HO.LAB 08:00
PROVIDERS: PCP Internal Medicine; Visit Provider Internal Medicine
DX: I10 Essential (primary) hypertension (principal); E11.9 Type 2 diabetes mellitus without complications; E78.00 Pure hypercholesterolemia, unspecified; E55.9 Vitamin D deficiency, unspecified
CPT/HCPCS: 36415; 80053; 80061; 82306; 83036; 84443; 85025

== ENCOUNTER → 2022-10-07 13:35 | Outpatient (BNVA) | payer OTHER, SELFPAY | PROVIDERS: Visit Provider Physician Assistant ==

== ENCOUNTER 2022-10-15 13:38 | Outpatient (AMB) | payer OTHER, SELFPAY ==
[2022-10-15 13:40] VITALS: BP 132/70; BMI 44.5
--- NOTE | 2022-10-15 13:40 | MHC.OFFVIS ---
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: No Accompanied by: Self / Same As Patient Allergies No Known Allergies [No Known Allergies*] Allergy (Verified 10/15/22 13:41) Medication List - Last Reconciled 10/15/22 by Luz Betts CNM cholecalciferol (vitamin D3) 50 mcg PO DAILY [CPAP supplies As directed] dapagliflozin propanediol (Farxiga) 10 mg PO QAM 90 days flash glucose scanning reader (FreeStyle Napoleon 14 Day [place]) As directed FreeStyle Napoleon 14 Day Sensor (flash glucose sensor) As directed NS metformin ER 500 mg PO BID ew-jwv-gnybz-calcium carb-K1 400 mcg-500 mg calcium-20 mcg (Women's 50 Plus Multivitamin) 1 tab PO .QD polyethylene glycol 3350 (Miralax) 238 grams PO ONCE rosuvastatin 5 mg PO DAILY 30 days PFSH Medical History Bilateral carpal tunnel syndrome Diabetes mellitus Elevated LFTs Left wrist pain Morbid obesity with BMI of 45.0-49.9, adult Obstructive sleep apnea Onychomycosis Pure hypercholesterolemia Smoker Vitamin D deficiency Surgical History History of carpal tunnel release History of nasal surgery Hx of colonoscopy Family History Maternal Aunt Breast cancer Daughter Hyperthyroidism Di Duy's syndrome Mental health problem Social History Housing: Apartment Alcohol intake: never Patient Tobacco Use Status: Current everyday Tobacco user Tobacco use type: Cigarette Cigarettes Per Day: 10 Years Smoked: 38 e-Cigarette/Vaping Use: Never Used Second Hand Smoke Exposure: Yes service: No Current occupational status: employed 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, 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 Cognitive needs: No Hearing needs: No Vision needs: No Female Reproductive History Menstrual Total pregnancies: 1 Number of Living Children: 1 Date of last pap smear: 01/01/12 Physical Exam Vital Signs: Last Vital Signs BP 132/70 10/15/22 13:40 BMI result Body Mass Index 44.5 Const General: Cushingoid facies Nutritional Appearance: obese morbidly obese HEENT Other: Evidence of frequent shaving Neck Other: Notable adipose tissue around neck Chest Breast/axilla inspection: inspection of breasts abnormal (Scarring from previous abscesses near nipples, history of having them drain) Breast/axilla palpation: normal palpation of the breasts and normal palpation of the axillae Resp Effort & Inspection: other (Slightly dyspneic) GI Palpation (GI): Hepatomegaly present and Ascites present General: Yes Bimanual renal exam normal bilaterally Speculum Exam - Vagina: normal appearance of the vagina and vaginal bleeding Speculum Exam - Cervix: normal appearance of the cervix Bimanual exam- vagina & uterus: enlarged, nontender and other (Unable to fully palpate uterus) OB/external & speculum: vaginal bleeding Skin Other: Scarring from previous skin abscesses question history of hidradenitis.... Assessment & Plan Assessment & Plan (1) Hepatomegaly: Code(s): R16.0 - Hepatomegaly, not elsewhere classified (2) Morbid obesity with BMI of 45.0-49.9, adult: Code(s): E66.01 - Morbid (severe) obesity due to excess calories; Z68.42 - Body mass index [BMI] 45.0-49.9, adult (3) Smoker: Code(s): F17.200 - Nicotine dependence, unspecified, uncomplicated (4) Obstructive sleep apnea: Code(s): G47.33 - Obstructive sleep apnea (adult) (pediatric) (5) Diabetes mellitus: Code(s): E11.9 - Type 2 diabetes mellitus without complications Qualifiers: Diabetes mellitus complication status: with hyperglycemia Diabetes mellitus 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 insulin use: without longterm use Diabetes mellitus type: type 2 Qualified Code(s): E11.65 - Type 2 diabetes mellitus with hyperglycemia (6) Abnormal uterine bleeding (AUB): Code(s): N93.9 - Abnormal uterine and vaginal bleeding, unspecified (7) Breast cancer screening: Code(s): Z12.39 - Encounter for other screening for malignant neoplasm of breast (8) Hx of abscess of skin and subcutaneous tissue: Code(s): Z87.2 - Personal history of diseases of the skin and subcutaneous tissue Plan -----Discussed in this visit the following: healthy balanced diet, regular and consistent exercise, getting recommended health screens, doing the best she can for her particular health concerns, kegel exercises, pap smear screening and followup recommendations, mammography screening and SBE, normal changes in cycles in her life stage--- . Discussed her health concerns and the challenges of CPAP she does not think she would ever be able to quit smoking and less her daughter moves out because it is so stressful she has special needs the take a lot of energy but since that is probably not going to happen she has resigned herself to smoking. She says she thinks she should have learn because her father in this hospital of emphysema and COPD. Nothing has worked for her in the past and patches or nothing. She says she has gotten herself worked up being anxious about what might be wrong that causes the bleeding to be going on for year and a half. Discussed that we will approach it in a stepwise fashion with pelvic ultrasound 1st to see if we can evaluate the size of her uterus and whether not there are any abnormal structures that can be seen and the next visit will be a discussion of what is found as well as probably and endometrial biopsy. Additionally I am going to place an order for mammogram. She says they hurt when there get done that is why she has not done 1 in a lot a year's but I do recommend. She says her numbers are good with her diabetes and her liver studies are getting better and she has been losing weight by trying to eat well and drink a lot a water and she only has 1 soda a day at dinner time and she does not have any interest in the bariatric weight loss program. Orders: Orders Bacterial Vaginosis Panel 10/16/22 Z01.419 - Encounter for gynecological examination (general) (routine) without abnormal findings CT NG by PCR 10/16/22 Z01.419 - Encounter for gynecological examination (general) (routine) without abnormal findings US pelvic and transvaginal 10/15/22 E11.9 - Type 2 diabetes mellitus without complications, E66.01 - Morbid (severe) obesity due to excess calories, F17.200 - Nicotine dependence, unspecified, uncomplicated, G47.33 - Obstructive sleep apnea (adult) (pediatric), N93.9 - Abnormal uterine and vaginal bleeding, unspecified, R16.0 - Hepatomegaly, not elsewhere classified, Z12.39 - Encounter for other screening for malignant neoplasm of breast, Z12.4 - Encounter for screening for malignant neoplasm of cervix, Z68.42 - Body mass index [BMI] 45.0-49.9, adult, Z87.2 - Personal history of diseases of the skin and subcutaneous tissue MM tomosynthesis screening BI 10/15/22 Z12.39 - Encounter for other screening for malignant neoplasm of breast, Z87.2 - Personal history of diseases of the skin and subcutaneous tissue Pap Smear 10/15/22 Z01.419 - Encounter for gynecological examination (general) (routine) without abnormal findings Coding Level of Care Code New Pt Prev Care [id number]([id number]) Diagnoses Hepatomegaly R16.0 Morbid obesity with BMI of 45.0-49.9, adult E66.01; Z68.42 Smoker F17.200 Obstructive sleep apnea G47.33 Diabetes mellitus E11.65 Diabetes mellitus complication status: with hyperglycemia Diabetes mellitus 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
== END 2022-10-15 15:28 | disposition home or self-care (01) ==
LOC: HO.HWS 13:38
PROVIDERS: PCP Internal Medicine; Visit Provider Advanced Practice Midwife
DX: Z01.419 Encounter for gynecological examination (general) (routine) without abnormal findings (principal); R16.0 Hepatomegaly, not elsewhere classified; E66.01 Morbid (severe) obesity due to excess calories; Z68.42 Body mass index [BMI] 45.0-49.9, adult; F17.200 Nicotine dependence, unspecified, uncomplicated; G47.33 Obstructive sleep apnea (adult) (pediatric); E11.65 Type 2 diabetes mellitus with hyperglycemia; N93.9 Abnormal uterine and vaginal bleeding, unspecified; Z12.39 Encounter for other screening for malignant neoplasm of breast; Z87.2 Personal history of diseases of the skin and subcutaneous tissue
CPT/HCPCS: 99386

== ENCOUNTER 2022-10-15 13:38 | Outpatient (REF) | payer OTHER, SELFPAY ==
[2022-10-17 12:37] LABS: BV Int Neg Control Negative (Negative); BV Int Pos Control Positive (Positive)
[2022-10-17 13:37] LABS: CT PCR NOT DETECTED (Not Detect.); NG PCR NOT DETECTED (Not Detect.)
[2022-10-19 03:27] LABS: HPV mRNA E6/E7 rflx Not Detected (Not Detected)
== END 2022-10-15 13:39 | disposition home or self-care (01) ==
LOC: HO.LNP 13:38
PROVIDERS: PCP Internal Medicine; Visit Provider Advanced Practice Midwife
DX: Z01.419 Encounter for gynecological examination (general) (routine) without abnormal findings (principal); Z11.51 Encounter for screening for human papillomavirus (HPV); N93.9 Abnormal uterine and vaginal bleeding, unspecified; R16.0 Hepatomegaly, not elsewhere classified
CPT/HCPCS: 0353U; 87480; 87510; 87624; 87660; 88142

== ENCOUNTER 2022-10-24 11:00 | Outpatient (REF) | payer OTHER, SELFPAY ==
--- NOTE | ~2022-10-24 | US_ITS ---
EXAMINATION: US PELVIS CLINICAL INFORMATION: Abnormal uterine bleeding, bleeding since May 2021 COMPARISON: None available. TECHNIQUE: Ultrasound of the pelvis is performed using both transabdominal and transvaginal transducers along with Doppler. Transvaginal imaging is performed due to inadequate visualization transabdominally. FINDINGS: Uterus: The uterus is anteverted and measures 12.3 x 5.6 x 6.6 cm. The double wall endometrial thickness is 0.4 mm. The uterus is smooth in contour and has normal myometrial echogenicity. No visible fibroid. Adnexa: Bilateral ovaries are seen only on transabdominal ultrasound images and not identified on transvaginal ultrasound images. Visualization of the bilateral ovaries on transabdominal images is limited due to bowel gas and the ovaries are grossly unremarkable.There is no pelvic ascites or fluid collection. Right ovary measures 3.2 x 2.2 x 2.8 cm. Volume 10.2 mL Left ovary measures 2.2 x 2.5 x 2.2 cm. Volume 6.3 mL US/US pelvic and transvaginal IMPRESSION: Abnormal endometrium with thickness of 4.1 cm, diffuse heterogeneity and increased echogenicity as well as increased vascularity towards the lower uterine segment aspect of the endometrium. Gynecologic consultation and possible biopsy recommended. Bilateral ovaries are seen only on transabdominal ultrasound images and are grossly unremarkable. This study was presented today 10/28/2022 at 9:09 AM for interpretation. PSA staff will provide results to referring provider at this time.
== END 2022-10-24 11:01 | disposition home or self-care (01) ==
LOC: HO.US 11:00
PROVIDERS: PCP Internal Medicine; Visit Provider Advanced Practice Midwife
DX: R16.0 Hepatomegaly, not elsewhere classified (principal); N93.9 Abnormal uterine and vaginal bleeding, unspecified
CPT/HCPCS: 76830; 76856

== ENCOUNTER 2022-11-13 13:12 | Outpatient (AMB) | payer OTHER, SELFPAY ==
--- NOTE | 2022-11-13 13:21 | A.OFFVIS_ITS ---
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: No Information Interpreted: non-clinical & clinical Railway Patrol Officer: Railway Patrol Officer Present Accompanied by: Sister Allergies No Known Allergies [No Known Allergies*] Allergy (Verified 11/13/22 13:28) Medication List - Last Reconciled 11/13/22 by Luz Betts CNM cholecalciferol (vitamin D3) 50 mcg PO DAILY [CPAP supplies As directed] dapagliflozin propanediol (Farxiga) 10 mg PO QAM 90 days flash glucose scanning reader (FreeStyle Napoleon 14 Day [place]) As directed FreeStyle Napoleon 14 Day Sensor (flash glucose sensor) As directed NS metformin ER 500 mg PO BID fs-qma-tanid-calcium carb-K1 400 mcg-500 mg calcium-20 mcg (Women's 50 Plus Multivitamin) 1 tab PO .QD polyethylene glycol 3350 (Miralax) 238 grams PO ONCE rosuvastatin 5 mg PO DAILY 30 days Post menopausal: Yes HPI ultrasound follow up/EMB HPI Details Is here for endometrial biopsy in discussion of her ultrasound which was abnormal and showed thickened lining. She has been bleeding for urine half postmenopausally. She brought her sister with her and she is worried and we discussed the possibilities including the possibility of a cancerous diagnosis. HPI Comments History of Present Illness Details Iwas asked for EMB assistance regarding this patient by Savita Betts CNM. History of post menopausal bleeding for 1.5 years. Ultrasound showed the following: Abnormal endometrium with thickness of 4.1 cm, diffuse heterogeneity and increased echogenicity as well as increased vascularity towards the lower uterine segment aspect of the endometrium. Gynecologic consultation and possible biopsy recommended. ? Bilateral ovaries are seen only on transabdominal ultrasound images and are grossly unremarkable. last co testing in 10/27 was negative PFSH Medical History Bilateral carpal tunnel syndrome Diabetes mellitus Elevated LFTs Left wrist pain Morbid obesity with BMI of 45.0-49.9, adult Obstructive sleep apnea Onychomycosis Pure hypercholesterolemia Smoker Vitamin D deficiency Surgical History History of carpal tunnel release History of nasal surgery Hx of colonoscopy Family History Maternal Aunt Breast cancer Daughter Hyperthyroidism Di Duy's syndrome Mental health problem Social History Housing: Apartment Alcohol intake: never Patient Tobacco Use Status: Current everyday Tobacco user Tobacco use type: Cigarette Cigarettes Per Day: 10 Years Smoked: 38 e-Cigarette/Vaping Use: Never Used Second Hand Smoke Exposure: Yes service: No Current occupational status: employed 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 Bimanual exam was done difficult to palpate entire uterus secondary to adiposity. Cervix was cleansed with Betadine and to neck ill a most placed to stabilize the cervix attempt was made x3 to pass sound through the os but I could not get past the internal os discussed possible attempt of endometrial biopsy by Dr. Ansari with Dr. Ansari and he came in and proceeded with endometrial biopsy please see his notes. Luz [place] CNM [id number] Biopsy Endometrial Biopsy Details: The patient was counseled regarding the indication and benefits of endometrial sampling to rule out endometrial pathology including not limited to endometrial hyperplasia or endometrial cancer and others; The alternatives (Either do nothing vs. hysteroscopy D&C) & the risks were discussed with the patient including but not limited: pain, uterine perforation, bleeding, infection, possible injury to bladder, bowel, ureter, possible need for blood transfusion with all its possible risks. The patient verbalized understanding all questions answered and signed consent. The patient was placed into the dorsal lithotomy position; a speculum was inserted in the vagina. Using aseptic technique for the procedure, the cervix was cleansed with Betadine. The anterior lip of the cervix was grasped with a single tooth tenaculum. The uterus was sounded to 7 cm with a 4 mm Pipelle was used. Tissues samples were obtained and placed in formalin, in a patient labeled container and sent to the pathology department. At the end of the procedure, there was minimal bleeding noted The patient tolerated the procedure well and was discharged in good condition with the following instructions: Nothing in the vagina until the bleeding stops. No sex until the bleeding stops, to call if any of the following occurs: fever (>100.4), flu-like symptoms, abdominal pain, heavy bleeding, four smelling vaginal discharge. The patient was instructed to schedule a Follow up appointment in 2 weeks to discuss pathology results of the biopsy and treatment options. This note was generated with a voice recognition program. Some errors may have been overlooked during the review of this note. Sometimes these errors may affect the content or meaning of a given sentence. [id number] Biopsy Results AMB Test Urine AMB Test Urine Negative Last Edit by BUD Pierre on 11/13/22 14:47 Results Reviewed Results Reviewed: Laboratory Last Values Tst Clinic Negative 11/13/22 14:46 Signed with Taylor Patient: Paula Estrella MR#: [id number] : 1965 Acct:[id number] Age/Sex: 57 / F ADM Date: 10/24/22 Loc: HO.US Attending Dr: Luz Betts CNM Ordering Physician: Luz Betts CNM Date of Service: 10/24/22 Procedure(s): US pelvic and transvaginal Accession Number(s): [id number] cc: Luz Betts CNM~ ADDENDUMJEAN Aguilar confirmed communication of results to Kayla Kincaid RN covering for referring provider on 10/28/2022 at 9:50 AM. Abnormal endometrium with thickness of 4.1 cm. Please note that a general merchandise salesperson error was made in the body of the report regarding endometrial thickness. Recommend for endometrial thickness is 1.1 cm. Addendum Dictated By: Angelia Morin MD Addendum Signed By: <Electronically signed by Angelia Morin MD in OV> 10/28/22 1327 Addendum Cosigned By: DD/ TD/TT: / EXAMINATION:? US PELVIS CLINICAL INFORMATION:? Abnormal uterine bleeding, bleeding since May 2021 COMPARISON: None available. TECHNIQUE: Ultrasound of the pelvis is performed using both transabdominal and transvaginal transducers along with Doppler. Transvaginal imaging is performed due to inadequate visualization transabdominally. FINDINGS: Uterus: The uterus is anteverted and measures 12.3 x 5.6 x 6.6 cm. The double wall endometrial thickness is 0.4 mm.? The uterus is smooth in contour and has normal myometrial echogenicity. ? No visible fibroid. Adnexa: Bilateral ovaries are seen only on transabdominal ultrasound images and not identified on transvaginal ultrasound images. Visualization of the bilateral ovaries on transabdominal images is limited due to bowel gas and the ovaries are grossly unremarkable.There is no pelvic ascites or fluid collection. Right ovary measures 3.2 x 2.2 x 2.8 cm. Volume 10.2 mL Left ovary measures 2.2 x 2.5 x 2.2 cm. Volume 6.3 mL US/US pelvic and transvaginal IMPRESSION: Abnormal endometrium with thickness of 4.1 cm, diffuse heterogeneity and increased echogenicity as well as increased vascularity towards the lower uterine segment aspect of the endometrium. Gynecologic consultation and possible biopsy recommended. ? Bilateral ovaries are seen only on transabdominal ultrasound images and are grossly unremarkable. ? This study was presented today 10/28/2022 at 9:09 AM for interpretation. PSA staff will provide results to referring provider at this time. ? ? ? Dictated By: Angelia Morin MD Signed By: <Electronically signed by Angelia Morin MD in OV> 10/28/22 0928 Assessment & Plan Assessment & Plan (1) Postmenopausal bleeding: Code(s): N95.0 - Postmenopausal bleeding Plan: Discussed with the patient the pelvic ultrasound findings, the endometrial stripe thickenss measured by ultrasound . The negative predictive value, positive predictive value, Sensitivity, specificity of using ultrasound measurement of endometrial stripe to detecting endometrial pathology including hyperplasia , polyp or cancer were discussed with the patient. Recommended to the patient that the next step is an endometrial sampling. All questions were answered pt verbalized understanding and decided to proceed with endometrial biopsy. EMB done, see procedure note Plan The above for discussions with the patient about the possible findings including the possibility of cancer. Also discussed what to expect with the endometrial biopsy my attempt with endometrial biopsy was not successful as I could not past the internal os I discussed this with Dr. Ansari and he came in and discussed the possibility the of doing the endometrial biopsy with the patient and he proceeded see his notes for details.. Patient tolerated the procedure well and we will make an appointment for her to come back in about 1 week to review the results. She will bring bringing her sister to that visit as well. Orders: Orders AMB HCG Urine Test Today Z32.02 - Encounter for test, result negative SHAMAR Brownlee Endometrial Biopsy Today N93.9 - Abnormal uterine and vaginal bleeding, unspecified SHAMAR Brownlee Endometrial Biopsy Today N95.0 - Postmenopausal bleeding Kenyon Ansari MD Coding Level of Care Code Est Pt Level 3 (50217) Procedure Only Diagnoses Postmenopausal bleeding N95.0 CPT Codes Endometrial Biopsy - CPT: 24171-Unengadxkyv Biopsy ([id number]) Endometrial Biopsy - CPT: 70096-Gyjhnbhaztc Biopsy ([id number])
[2022-11-13 13:27] VITALS: BP 126/78; BMI 44.1
== END 2022-11-13 15:45 | disposition home or self-care (01) ==
PROVIDERS: PCP Internal Medicine; Visit Provider Obstetrics & Gynecology
DX: N95.0 Postmenopausal bleeding (principal); Z32.02 Encounter for pregnancy test, result negative
CPT/HCPCS: 58100

== ENCOUNTER 2022-11-13 13:12 | Outpatient (REF) | payer OTHER, SELFPAY | END 2022-11-13 13:13 | disposition home or self-care (01) | LOC: HO.LNP 13:12 | PROVIDERS: PCP Internal Medicine; Visit Provider Advanced Practice Midwife | DX: N95.0 Postmenopausal bleeding (principal) | CPT/HCPCS: 58100; 81025; 88305; 88341; 88342 ==

== ENCOUNTER 2022-11-20 | Outpatient (REF) | payer OTHER, SELFPAY | END 2022-11-20 00:01 | LOC: HO.MAMMO | PROVIDERS: PCP Internal Medicine; Visit Provider Advanced Practice Midwife | DX: K76.0 Fatty (change of) liver, not elsewhere classified (principal); K59.01 Slow transit constipation; C54.1 Malignant neoplasm of endometrium; Z87.2 Personal history of diseases of the skin and subcutaneous tissue; Z71.2 Person consulting for explanation of examination or test findings | CPT/HCPCS: 99212 ==

== ENCOUNTER 2022-11-20 10:35 | Outpatient (AMB) | payer OTHER, SELFPAY ==
--- NOTE | 2022-11-20 10:38 | MHC.OFFVIS ---
Intake Vital Signs 11/20/22 10:41 Height 5 ft 3 in Weight 249 lb 1.957 oz BMI 44.1 BP 120/74 Intake Visit Reasons: EMB results Manager Distribution Center Required: No Information Interpreted: non-clinical & clinical Accompanied by: Sister Allergies No Known Allergies [No Known Allergies*] Allergy (Verified 11/20/22 10:42) Post menopausal: Yes HPI HPI Comments History of Present Illness Details Presenting post EMB for follow-up. Doing well with no complaints. 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 Comment:? Stains for mismatch repair defect related tumor pending; addendum to follow. [facility] Medical History Bilateral carpal tunnel syndrome Diabetes mellitus Elevated LFTs Left wrist pain Morbid obesity with BMI of 45.0-49.9, adult Obstructive sleep apnea Onychomycosis Pure hypercholesterolemia Smoker Vitamin D deficiency Surgical History History of carpal tunnel release History of nasal surgery Hx of colonoscopy Family History Maternal Aunt Breast cancer Daughter Hyperthyroidism Di Duy's syndrome Mental health problem Social History Housing: Apartment Alcohol intake: never Patient Tobacco Use Status: Current everyday Tobacco user Tobacco use type: Cigarette Cigarettes Per Day: 10 Years Smoked: 38 e-Cigarette/Vaping Use: Never Used Second Hand Smoke Exposure: Yes service: No Current occupational status: employed 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, 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 Cognitive needs: No Hearing needs: No Vision needs: No Review of Systems Const All systems reviewed & are unremarkable except as noted in HPI and below Reports as per HPI and Reports no additional complaints GI Reports no additional complaints Reports no additional complaints Physical Exam Vital Signs: Last Vital Signs BP 120/74 11/20/22 10:41 BMI result Body Mass Index 44.1 Assessment & Plan Assessment & Plan (1) Endometrial cancer: Comment: FIGO 1 endometrioid adenocarcinoma Code(s): C54.1 - Malignant neoplasm of endometrium Plan: Discussed with the patient the pathology results, the recommended surgical staging procedure, and the prognosis. The patient was to Indirect Sales Exec On[facility] at [facility] for further management. Appointment booked on 12/[address] Treviño in at 09:00, the patient is aware . All questions answered, the patient verbalized understanding. Coding Level of Care Code Est Pt Level 3 (33666) Diagnoses Endometrial cancer C54.1
[2022-11-20 10:41] VITALS: BP 120/74; BMI 44.1
== END 2022-11-20 10:54 | disposition home or self-care (01) ==
LOC: HO.HWS 10:35
PROVIDERS: PCP Internal Medicine; Visit Provider Obstetrics & Gynecology
DX: C54.1 Malignant neoplasm of endometrium (principal)
CPT/HCPCS: 99213

== ENCOUNTER 2022-11-20 13:04 | Outpatient (AMB) | payer OTHER, SELFPAY ==
[2022-11-20 13:20] VITALS: BP 115/53; PULSE 86; BMI 44.5
--- NOTE | 2022-11-20 13:20 | MHC.OFFVIS ---
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 Patient will repeat ultrasound again. Will also repeat the liver enzymes. Discussed with patient the importance of losing weight. Eating food low in fat Elevated LFTs Will repeat liver enzymes, ultrasound Status post colonoscopy Patient denies any ill effects from the prep, anesthesia or procedure itself. Patient had suboptimal prep and will need to return for colorectal screening. I will see her in 6 months so he can discuss how she will proceed and what kind of prep patient will do. Patient is agreeable to this plan and verbalizes understanding of instructions. She was given the opportunity to ask questions all questions answered. ? Thank you for allowing me to participate in her care Plan Orders Orders Liver Panel Today R10.9 US abdomen limited Today R79.89 Medications New polyethylene glycol 3350 (Miralax) As directed by gastroenterology department at [facility] 238 grams PO ONCE 238 grams 0RF Z12.11 TODAY'S VISIT: Patient is here today for follow-up. Patient had ultrasound done as well as lab work. No change from last ultrasound that was done in June of 2021. Patient had normal liver enzymes. Patient reports to be doing well, denies any abdominal pain or discomfort. Reports that she is moving her bowels better now. Takes MiraLax every day. Denies melena, hematochezia, unintentional weight loss or ribbon like stools. Patient denies any dyspepsia, dysphagia or odynophagia. Patient would like to wait going for colonoscopy. Patient was diagnosed with endometrial cancer and will need to have surgery. She was referred to go to [facility] and will be going there in the next few weeks. [facility] Medical History (Updated 12/10/22 @ 20:53 by Cely Walker, [facility]) Bilateral carpal tunnel syndrome Diabetes mellitus Elevated LFTs Left wrist pain Morbid obesity with BMI of 45.0-49.9, adult Obstructive sleep apnea Onychomycosis Pure hypercholesterolemia Smoker Vitamin D deficiency Surgical History History of carpal tunnel release History of nasal surgery Hx of colonoscopy Family History Maternal Aunt Breast cancer Daughter Hyperthyroidism Di Duy's syndrome Mental health problem Social History Housing: Apartment Alcohol intake: never Patient Tobacco Use Status: Current everyday Tobacco user Tobacco use type: Cigarette Cigarettes Per Day: 10 Years Smoked: 38 e-Cigarette/Vaping Use: Never Used Second Hand Smoke Exposure: Yes service: No Current occupational status: employed 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 LIVER: The liver contour is normal. There is diffuse increased liver parenchymal echogenicity, consistent with hepatic steatosis.? No focal hepatic lesion. There is no intrahepatic biliary duct dilatation seen. GALLBLADDER: Normal. The gallbladder is physiologically distended without evidence of stones, sludge, polyps, wall thickening or pericholecystic fluid. COMMON BILE DUCT: Normal in caliber measuring 0.4 cm in diameter. RIGHT KIDNEY: Normal. No hydronephrosis. No renal calculi or focal parenchymal lesions. The kidney measures 12.3 cm in maximum dimension. FIB 4 SCORE 0.68 Assessment & Plan Assessment & Plan (1) Hepatic steatosis: Code(s): K76.0 - Fatty (change of) liver, not elsewhere classified Plan: No change on ultrasound. Liver enzymes are normal. Patient was encouraged to eat low-fat diet. Patient was encouraged to lose weight. (2) Constipation: Code(s): K59.00 - Constipation, unspecified Qualifiers: Constipation type: slow transit constipation Qualified Code(s): K59.01 - Slow transit constipation Plan: Continue MiraLax daily. Increase fluid intake and activity to promote better bowel motility. Patient will return in 6 months and we will discuss going for colonoscopy. Patient currently is following up with oncologist in [facility] for possible surgery. Diagnosed with endometrial cancer. Patient is agreeable to this plan and verbalizes understanding of instructions. She was given the opportunity to ask questions and all questions answered. Thank you for allowing me to participate in her care Medications: New polyethylene glycol 3350 (Miralax) 17 grams PO DAILY 510 grams 2RF Coding Level of Care Code Est Pt Level 3 (01887) Diagnoses Hepatic steatosis K76.0 Constipation K59.01 Constipation type: slow transit constipation Time Spent (min) 30 Comment 20 minutes spent with patient and additional 10 minutes spent reviewing her records
== END 2022-11-20 13:54 | disposition home or self-care (01) ==
PROVIDERS: PCP Internal Medicine; Visit Provider Nurse Practitioner Family
DX: K76.0 Fatty (change of) liver, not elsewhere classified (principal); K59.01 Slow transit constipation
CPT/HCPCS: 99213

== ENCOUNTER 2022-12-19 10:51 | Outpatient (REF) | payer OTHER, SELFPAY ==
--- NOTE | ~2022-12-19 | MM_ITS ---
EXAMINATION: MM SCREENING DIGITAL BREAST TOMOSYNTHESIS, BILATERAL CLINICAL INFORMATION: Screening. The patient has 2 known, chronic, draining right areolar abscesses. COMPARISON: Mammography: This study is compared with prior exams dating back to TECHNIQUE: Digital breast tomosynthesis is performed in both the craniocaudal and mediolateral oblique views along with computer-aided detection (CAD). Synthesized 2D images are generated from the tomosynthesis. FINDINGS: There are scattered areas of fibroglandular density (ACR BI-RADS breast composition Category b). There are no significant masses, abnormal calcifications, or other abnormalities. The right areolar skin is marked with mole markers to identify the 2 chronic draining abscesses. MM/MM tomosynthesis screening BI IMPRESSION: No mammographic evidence of malignancy. ASSESSMENT: BI-RADS BI-RADS 2 - Benign Findings RECOMMENDATION: Routine annual mammography screening. 1 year F/U This examination should not preclude the clinical evaluation of a suspicious palpable abnormality. This patient's information was entered into a reminder system with a target due date for their next mammogram.
== END 2022-12-19 10:52 | disposition home or self-care (01) ==
LOC: HO.MAMMO 10:51
PROVIDERS: PCP Internal Medicine; Visit Provider Advanced Practice Midwife
DX: Z12.31 Encounter for screening mammogram for malignant neoplasm of breast (principal)
CPT/HCPCS: 77063; 77067

== ENCOUNTER → 2022-12-19 11:30 | Outpatient (BNV) | payer OTHER, SELFPAY | PROVIDERS: PCP Internal Medicine; Visit Provider Radiology Diagnostic Radiology | DX: Z12.31 Encounter for screening mammogram for malignant neoplasm of breast (principal) | CPT/HCPCS: 77063; 77067 ==

== ENCOUNTER 2022-12-25 07:17 | Outpatient (REF) | payer OTHER, SELFPAY ==
[2022-12-25 07:32] LABS: MANUAL DIFF FLAG NO
[2022-12-25 07:50] LABS: Basophils Percent Auto 0.3 % (0-2); Eosinophils Absolute Auto 0.2 X10*3/uL (0.0-0.4); Eosinophils Percent Auto 1.6 % (0-4); Hematocrit 45.3 % (37.0-47.0); Hemoglobin 14.9 g/dl (12.0-16.0); Imm Gran Abs Auto 0.06 X10*3/uL (0.00-0.03); Imm Gran Pct Auto 0.5 % (0.0-0.4); Lymphocytes Absolute Auto 2.7 X10*3/uL (1.2-4.9); Lymphocytes Percent Auto 23.1 % (20-40); Mean Corpuscular HGB Conc 32.9 g/dl (31.0-35.0); Mean Corpuscular Hemoglobin 29.1 pg (27.0-33.0); Mean Corpuscular Volume 88.5 fL (80.0-98.0); Mean Platelet Volume 9.8 fL (9.4-12.3); Monocytes Absolute Auto 0.7 X10*3/uL (0.1-1.2); Monocytes Percent Auto 5.6 % (2-11); Neutrophils Absolute Auto 8.1 x10*3/uL (2.0-8.3); Neutrophils Percent Auto 68.9 % (45-73); Platelet Count 288 X10*3/uL (160-400); Red Blood Count 5.12 X10*6/uL (4.20-5.50); Red Cell Distribution Width 14.6 % (11.0-16.0); White Blood Count 11.8 X10*3/uL (4.8-10.8)
[2022-12-25 07:53] LABS: Estimated Average Glucose 146 mg/dL; Hemoglobin A1c % 6.7 % (<6.0)
[2022-12-25 10:18] LABS: Alanine Aminotransferase 33 U/L (0-31); Albumin Level 4.1 g/dL (3.5-5.0); Alkaline Phosphatase 111 U/L (39-117); Anion Gap 14 (12-20); Aspartate Amino Transferase 25 U/L (5-31); Bilirubin Total 0.5 mg/dL (0.0-1.0); Blood Urea Nitrogen 12 mg/dL (9-16); Calcium 9.7 mg/dL (8.4-10.2); Carbon Dioxide 24 mmol/L (22-29); Chloride 106 mmol/L (96-108); Cholesterol 167 mg/dL (<200); Estimated Glomerular Filt Rate > 60; Glucose Fasting 151 mg/dL (60-99); HDL Cholesterol 30 mg/dL (>40); LDL Cholesterol Calculated 88 mg/dL (<100); Sodium 140 mmol/L (135-145); Triglycerides 245 mg/dL (<150)
[2022-12-25 10:45] LABS: TSH reflex Free T4 2.17 uIU/mL (0.32-4.0)
[2022-12-25 14:27] LABS: Appearance Urine Cloudy; Color Urine Yellow; Glucose Urine UA >=1000 mg/dL (Negative); Leukocyte Esterase Urine Small (1+) (Negative); Nitrite Urine Positive (Negative); PH 5.5 (5.0-9.0); Specific Gravity - Urine >= 1.030 (1.005-1.025); UMIC TRIGGER UACC YES; Urine Blood Large (3+) (Negative); Urine Ketones Negative (Negative); Urine Protein Negative (Neg-Trace)
[2022-12-25 14:42] LABS: Bacteria Urine 4+ (None Seen); Hyaline Casts Urine 0-2 /LPF (0-2); RBC Urine >20 /HPF (0-2); Squamous Epithelial Cell Urine 0-2 /HPF (0-2); UACC Culture Trigger YES; WBC Urine >50 /HPF (0-5)
[2022-12-25 15:05] LABS: Creatinine Urine 40.54 mg/dL; Microalbum/Creatinine Ratio Ur 150.4 ug/mg cr (<30)
== END 2022-12-25 07:18 | disposition home or self-care (01) ==
LOC: HO.LAB 07:17
PROVIDERS: PCP Internal Medicine; Visit Provider Internal Medicine
DX: E55.9 Vitamin D deficiency, unspecified (principal); E11.9 Type 2 diabetes mellitus without complications; E78.00 Pure hypercholesterolemia, unspecified; I10 Essential (primary) hypertension
CPT/HCPCS: 36415; 80053; 80061; 81001; 82043; 82306; 82570; 83036; 84443; 85025; 87086; 87088; 87186

== ENCOUNTER 2022-12-26 10:25 | Outpatient (AMB) | payer OTHER, SELFPAY ==
[2022-12-26 10:54] VITALS: BP 122/78; PULSE 81; O2SAT 94; BMI 44.5
--- NOTE | 2022-12-26 10:54 | MHC.PC.OV ---
Vital Signs 12/26/22 10:54 Height 5 ft 3 in Weight 251 lb 2 oz BMI 44.5 BP 122/78 Blood Pressure Location Lt brachial Position Sitting Pulse 81 Pulse Source Pulse Oximeter Pulse Oximetry (%) 94 Oxygen Delivery Method Room Air Intake Visit Reasons: F/Up DM, hyperlipidemia, HTN Brine Purifier Required: No Accompanied by: Self / Same As Patient Allergies No Known Allergies [No Known Allergies*] Allergy (Verified 12/26/22 11:29) Medication List - Last Reconciled 12/26/22 by Durga Dietz MD cholecalciferol (vitamin D3) 50 mcg PO DAILY [CPAP supplies As directed] dapagliflozin propanediol (Farxiga) 10 mg PO QAM 90 days flash glucose scanning reader (FreeStyle Napoleon 14 Day [place]) As directed FreeStyle Napoleon 14 Day Sensor (flash glucose sensor) As directed NS metformin ER 500 mg PO BID vo-vgn-boceu-calcium carb-K1 400 mcg-500 mg calcium-20 mcg (Women's 50 Plus Multivitamin) 1 tab PO .QD polyethylene glycol 3350 (Miralax) 17 grams PO DAILY rosuvastatin 5 mg PO DAILY 30 days Tobacco use date assessed: 12/26/22 Dental Screening Dental Screen Date: 12/26/22 Did you have a dental visit in the last 12 months?: No Did you have a dental problem in the last 6 months where you did not have access to dental care?: No Was dental information given to patient?: Patient has dentist HPI F/Up DM, hyperlipidemia, HTN HPI Details Patient comes in today for her follow up visit She was recently diagnosed with grade 1 endometrioid adenocarcinoma from work ups done due to postmenopausal bleeding She was seen by gynecologic oncology at [facility] for consultation regarding this a few weeks ago and is now scheduled to undergo a robotic assisted total laparoscopic hysterectomy, BSA, SLN mapping and biopsy on 01/14/23 She will be back next week to see us for her preop exam and clearance States that she currently feels okay and is trying to take things one day at a time States that she is still working but has already made plans to be out of work for about 6 to 8 weeks following her upcoming surgery She denies any headaches or dizziness Denies any chest pains, no SOB No nausea/vomiting, no abdominal pain No change in bowel habits noted Had her follow up labs done yesterday - to discuss her results [facility] Medical History (Updated 12/30/22 @ 00:07 by Durga Dietz MD) Morbid obesity with BMI of 40.0-44.9, adult Onychomycosis Left wrist pain Elevated LFTs Morbid obesity with BMI of 45.0-49.9, adult Smoker Vitamin D deficiency Bilateral carpal tunnel syndrome Obstructive sleep apnea Pure hypercholesterolemia Diabetes mellitus Surgical History Hx of colonoscopy History of carpal tunnel release History of nasal surgery Family History Maternal Aunt Breast cancer Daughter Hyperthyroidism Di Duy's syndrome Mental health problem Social History Housing: Apartment Alcohol intake: never Patient Tobacco Use Status: Current everyday Tobacco user Tobacco use type: Cigarette Cigarettes Per Day: 10 Years Smoked: 38 e-Cigarette/Vaping Use: Never Used Second Hand Smoke Exposure: Yes service: No Current occupational status: employed Current occupation: [employer], 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 1. Little interest or pleasure in doing things: not at all 2. Feeling down, depressed, or hopeless: not at all 3. Trouble falling or staying asleep, or sleeping too much: not at all 4. Feeling tired or having little energy: not at all 5. Poor appetite or overeating: not at all 6. Feeling bad about yourself - or that you are a failure or have let yourself or your family down: not at all 7. Trouble concentrating on things, such as reading the newspaper or watching television: not at all 8. Moving or speaking so slowly that other people could have noticed. Or the opposite - being so fidgety or restless that you have been moving around a lot more than usual: not at all 9. Thoughts that you would be better off or of hurting yourself in some way: not at all Total score: 0 Depression Screening Interpretation: Negative 14958 - PHQ-9 Billing: Yes Source: Developed by Drs. Gary Turcios, Ashly Shabazz, Brent Maurice and colleagues, with an educational carolyn from [employer]. Thrive Questionnaire Date Thrive assessed: 12/26/22 I am a: Patient What is your living situation today?: I have a steady place to live Within the past 12 months, did the food you bought not last and you didn't have the money to get more?: Never true Within the past 12 months, did you worry whether your food would run out before you got money to buy more?: Never true Do you have trouble paying for medicines?: No Do you have trouble getting transportation to medical appointments?: No Do you have trouble paying your heating and electricity bill?: No Do you have trouble taking care of your child, family member or friend?: No Do you have trouble with day-to-day activities such as bathing, preparing meals, shopping, managing finances, etc.?: No Are you currently unemployed and looking for a job?: No Are you interested in more education?: No Please select the resources that you would like help with: None Currently or been in a relationship where the following occur: no concerns reported AUDIT C Alcohol Use Questionnaire (AUDIT-C) 1. How often do you have a drink containing alcohol?: Never 3. How often do you have six or more drinks on one occasion?: Never Total Score: 0 Score Reviewed/Action Taken: Yes MERCEDES-7 AMB Questionnaire MERCEDES-7 Date MERCEDES - 7 assessed: 12/26/22 Feeling nervous, anxious, or on edge: 0 = Not at all Not being able to stop or control worryin = Not at all Worrying too much about different things: 0 = Not at all Trouble relaxin = Not at all Being so restless that it is hard to sit still: 0 = Not at all Becoming easily annoyed or irritable: 0 = Not at all Feeling afraid as if something awful might happen: 0 = Not at all Total MERCEDES-7 score (0-4 normal; 5-9 mild; 10-14 moderate; 15-21 severe): 0 Source: Developed by Ashly Cheung, Brent Maurice and colleagues, with an educational carolyn from [employer]. Review of Systems Const Denies chills, Denies fatigue, Denies fever(s) and Denies headache(s) ENT Denies dysphagia, Denies dizziness, Denies otalgia, Denies headache(s), Denies odynophagia and Denies sore throat Card Denies chest pain, Denies palpitations and Denies dyspnea Resp Denies cough and Denies dyspnea GI Denies abdominal pain, Denies constipation, Denies dysphagia, Denies heartburn, Denies diarrhea, Denies nausea, Denies odynophagia and Denies vomiting Denies nocturia and Denies dysuria Musc Denies arthralgias and Reports tingling (in both feet (on and off), and over the left thigh) Skin/Breast Denies rash Neuro Details: (+) recurrent pain and on and off tingling/numbness of some fingers on her right hand Denies dizziness, Denies headache(s) and Reports tingling (in both feet (on and off), and over the left thigh) Endo Denies fatigue and Denies palpitations Physical exam (Primary Care) Vital Signs: Last Vital Signs Pulse 81 12/26/22 10:54 BP 122/78 12/26/22 10:54 Pulse Ox 94 12/26/22 10:54 Oxygen Delivery Method Room Air 12/26/22 10:54 BMI result Body Mass Index 44.5 Tobacco/Smoking Status: Tobacco use Status Tobacco use date assessed 12/26/22 12/26/22 11:01 Patient Tobacco Use Status Current everyday Tobacco 12/26/22 11:01 Tobacco use type Cigarette 12/26/22 11:01 e-Cigarette/Vaping Use Never Used 12/26/22 11:01 PHQ-9: PHQ-9 Score PHQ-9: Total score 0 12/26/22 11:32 Depression Screening Interpretation: Negative Thrive Assessment: Date of Thrive Assessment Date Thrive assessed 12/26/22 12/26/22 11:01 Currently or been in a relationship where the following occur: no concerns reported Const General: no acute distress and alert HENMT Ears: TM's normal bilaterally and EAC's normal Throat: Yes posterior oropharynx normal and Yes tonsils normal (no TP congestion) Neck Neck: Yes no lymphadenopathy and Yes supple Resp Auscultation: clear to auscultation bilaterally, no rales and no wheezes Cardio Rate: regular rate Rhythm: regular rhythm Heart sounds: no murmurs GI Palpation (GI): Soft to palpation and nontender Auscultation: normal bowel sounds Extrem General: Yes no clubbing, cyanosis or edema Right upper extremity: wrist (right hand/wrist still currently in bandages) Details: no tenderness and no swelling Results Reviewed Results Reviewed: Laboratory Tests 12/25/22 12/25/22 12/25/22 07:29 07:29 07:29 WBC 11.8 H Hct 45.3 Plt Count 288 Sodium 140 Potassium 4.0 Creatinine 0.72 Estimated GFR > 60 Fasting Glucose 151 H Hemoglobin A1c % 6.7 H Calcium 9.7 AST 25 ALT 33 H Triglycerides 245 H Cholesterol 167 LDL Cholesterol, Calc 88 HDL Cholesterol 30 L 25-OH Vitamin D Total 68.0 TSH 2.17 Ur Specific [place] Urine Protein Urine Glucose (UA) Urine Blood Microalb/Creat Ratio 12/25/22 12/25/22 08:59 08:59 WBC Hct Plt Count Sodium Potassium Creatinine Estimated GFR Fasting Glucose Hemoglobin A1c % Calcium AST ALT Triglycerides Cholesterol LDL Cholesterol, Calc HDL Cholesterol 25-OH Vitamin D Total TSH Ur Specific [place] >= 1.030 H Urine Protein Negative Urine Glucose (UA) >=1000 H Urine Blood Large (3+) H Microalb/Creat Ratio 150.4 H Assessment and Plan Assessment & Plan (1) Pure hypercholesterolemia: Code(s): E78.00 - Pure hypercholesterolemia, unspecified Plan: Results of her labs done yesterday reviewed and discussed with patient - her total cholesterol and serum triglyceride levels have improved slightly from previous; LDL cholesterol remains unchanged (near goal) at 88 mg/dl Reinforced low cholesterol diet Continue Rosuvastatin 5 mg QD (2) Diabetes mellitus: Code(s): E11.9 - Type 2 diabetes mellitus without complications Qualifiers: Diabetes mellitus type: type 2 Diabetes mellitus fci insulin use: without fci use Diabetes mellitus complication status: with hyperglycemia Qualified Code(s): E11.65 - Type 2 diabetes mellitus with hyperglycemia Plan: HgbA1c was at 6.7% on her labs done yesterday (was at 6.5% a few months ago) - goal is at least <7.0% Reinforced diabetic diet Continue Metformin ER 500 mg BID and Farxiga 10 mg QD (3) Elevated LFTs: Code(s): R79.89 - Other specified abnormal findings of blood chemistry Plan: Her LFTs have previously improved and have remained normal on her recent labs - were most likely due to a combination of her weight and cholesterol level Abdominal US done in June 2021 revealed (+) hepatomegaly and hepatic steatosis Patient is encouraged to continue working on her diet, exercise as tolerated and lose weight - will continue to monitor her LFTs regularly (4) Endometrial cancer: Comment: FIGO 1 endometrioid adenocarcinoma Code(s): C54.1 - Malignant neoplasm of endometrium Plan: She was recently diagnosed with grade 1 endometrioid adenocarcinoma during work ups done for postmenopausal bleeding She was seen by gynecologic oncology at [facility] for consultation a few weeks ago and is now scheduled to undergo a robotic assisted total laparoscopic hysterectomy, BSA, SLN mapping and biopsy on 01/14/23 She will return next week for her preop medical exam/clearance Is advised that her labs done yesterday should suffice for her preop evaluation but she should get an EKG done [facility] to help complete her preop evaluation - EKG ordered (5) Obstructive sleep apnea: Code(s): G47.33 - Obstructive sleep apnea (adult) (pediatric) Plan: Continue using CPAP device when sleeping at night - patient reports no issues or problems with her device (6) Bilateral carpal tunnel syndrome: Code(s): G56.03 - Carpal tunnel syndrome, bilateral upper limbs Plan: S/P right carpal tunnel surgery in 2015 and left carpal tunnel release on 09/03/2017 - her wrist symptoms have improved significantly with surgery Just had carpal tunnel surgery on her right wrist again on 09/23/2022 - states that her surgery went well Follow up with orthopedics as scheduled (7) Vitamin D deficiency: Code(s): E55.9 - Vitamin D deficiency, unspecified Plan: Continue Vitamin D3 2000 units QD (8) Smoker: Code(s): F17.200 - Nicotine dependence, unspecified, uncomplicated Plan: Counseled again on smoking cessation (9) Morbid obesity with BMI of 40.0-44.9, adult: Code(s): E66.01 - Morbid (severe) obesity due to excess calories; Z68.41 - Body mass index [BMI] 40.0-44.9, adult Plan: Reinforced diet/exercise as tolerated/lose weight Follow up with materials branch chief at [facility] as scheduled Plan To return as scheduled next week for her preop exam and clearance Orders: Orders ECG 12 lead EKG 12/26/22 E11.9 - Type 2 diabetes mellitus without complications, G47.33 - Obstructive sleep apnea (adult) (pediatric), Z01.818 - Encounter for other preprocedural examination Coding Level of Care Code Est Pt Level 4 (30373) Diagnoses Pure hypercholesterolemia E78.00 Type 2 diabetes mellitus with hyperglycemia, without long-term current use of insulin E11.65 Diabetes mellitus type: type 2 Diabetes mellitus fci insulin use: without shoulder sawyer use Diabetes mellitus complication status: with hyperglycemia Elevated LFTs R79.89 Endometrial cancer C54.1 Obstructive sleep apnea G47.33 Bilateral carpal tunnel syndrome G56.03 Vitamin D deficiency E55.9 Smoker F17.200 Morbid obesity with BMI of 40.0-44.9, adult E66.01; Z68.41
== END 2022-12-26 11:39 | disposition home or self-care (01) ==
PROVIDERS: PCP Internal Medicine; Visit Provider Internal Medicine
DX: E11.65 Type 2 diabetes mellitus with hyperglycemia (principal); E55.9 Vitamin D deficiency, unspecified; E66.01 Morbid (severe) obesity due to excess calories; Z68.41 Body mass index [BMI] 40.0-44.9, adult; F17.210 Nicotine dependence, cigarettes, uncomplicated; C54.1 Malignant neoplasm of endometrium; E11.9 Type 2 diabetes mellitus without complications; E78.00 Pure hypercholesterolemia, unspecified; R79.89 Other specified abnormal findings of blood chemistry; G47.33 Obstructive sleep apnea (adult) (pediatric); G56.03 Carpal tunnel syndrome, bilateral upper limbs
CPT/HCPCS: 99214

== ENCOUNTER → 2023-01-01 10:24 | Outpatient (REF) | payer OTHER, SELFPAY ==
--- NOTE | 2023-01-01 10:29 | ECG_ITS ---
Test Reason : E11.9 - Type 2 diabetes mellitus without complications Blood Pressure : / mmHG Vent. Rate : 074 BPM Atrial Rate : 074 BPM P-R Int : 150 ms QRS Dur : 090 ms QT Int : 392 ms P-R-T Axes : 049 072 034 degrees QTc Int : 435 ms Normal sinus rhythm Normal ECG When compared with ECG of 19-NOV-2002 10:33, No significant change was found Referred By: Durga Dietz Electronically Signed By:ИВАН VERDE
== END ==
LOC: HO.CARD 10:24
PROVIDERS: PCP Internal Medicine; Visit Provider Internal Medicine
DX: Z01.818 Encounter for other preprocedural examination (principal); E11.9 Type 2 diabetes mellitus without complications; G47.33 Obstructive sleep apnea (adult) (pediatric)
CPT/HCPCS: 93005

== ENCOUNTER 2023-01-01 16:12 | Outpatient (AMB) | payer OTHER, SELFPAY ==
--- NOTE | 2023-01-01 16:14 | MHC.PC.OV ---
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 Required: No Accompanied by: Self / Same As Patient Allergies No Known Allergies [No Known Allergies*] Allergy (Verified 01/01/23 16:40) Medication List - Last Reconciled 01/01/23 by Durga Dietz MD cholecalciferol (vitamin D3) 50 mcg PO DAILY [CPAP supplies As directed] dapagliflozin propanediol (Farxiga) 10 mg PO QAM 90 days flash glucose scanning reader (FreeStyle Napoleon 14 Day Dike) As directed FreeStyle Napoleon 14 Day Sensor (flash glucose sensor) As directed NS metformin ER 500 mg PO BID at-pjw-qxmtl-calcium carb-K1 400 mcg-500 mg calcium-20 mcg (Women's 50 Plus Multivitamin) 1 tab PO .QD polyethylene glycol 3350 (Miralax) 17 grams PO DAILY rosuvastatin 5 mg PO DAILY 30 days Tobacco use date assessed: 01/01/23 Dental Screening Dental Screen Date: 01/01/23 Did you have a dental visit in the last 12 months?: No Did you have a dental problem in the last 6 months where you did not have access to dental care?: No Was dental information given to patient?: No HPI PRE OP Robotic Assist Laparoscopic Surgery HPI Details Patient comes in today at the request of Dr. Raquel Overton for a preoperative medical examination for clearance for surgery She is scheduled to undergo a robotic assisted total laparoscopic hysterectomy, BSA, SLN mapping and biopsy under general anesthesia on 01/14/23 Patient continues to feel very worried about her recent cancer diagnosis but is hopeful that the surgery will get her going in the right direction towards treatment and a full recovery from her uterine cancer She denies any headaches or dizziness Denies any chest pains, shortness of breath or any recent cough/cold symptoms No nausea/vomiting, no abdominal pain No change in bowel habits noted Had her preordered labs done last week and her EKG done earlier today [facility] Medical History Morbid obesity with BMI of 40.0-44.9, adult Onychomycosis Left wrist pain Elevated LFTs Morbid obesity with BMI of 45.0-49.9, adult Smoker Vitamin D deficiency Bilateral carpal tunnel syndrome Obstructive sleep apnea Pure hypercholesterolemia Diabetes mellitus Surgical History Hx of colonoscopy History of carpal tunnel release History of nasal surgery Family History Maternal Aunt Breast cancer Daughter Hyperthyroidism Di Duy's syndrome Mental health problem Social History Housing: Apartment Alcohol intake: never Patient Tobacco Use Status: Current everyday Tobacco user Tobacco use type: Cigarette Cigarettes Per Day: 10 Years Smoked: 38 e-Cigarette/Vaping Use: Never Used Second Hand Smoke Exposure: Yes service: No Current occupational status: employed 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 1. Little interest or pleasure in doing things: not at all 2. Feeling down, depressed, or hopeless: not at all 3. Trouble falling or staying asleep, or sleeping too much: not at all 4. Feeling tired or having little energy: not at all 5. Poor appetite or overeating: not at all 6. Feeling bad about yourself - or that you are a failure or have let yourself or your family down: not at all 7. Trouble concentrating on things, such as reading the newspaper or watching television: not at all 8. Moving or speaking so slowly that other people could have noticed. Or the opposite - being so fidgety or restless that you have been moving around a lot more than usual: not at all 9. Thoughts that you would be better off or of hurting yourself in some way: not at all Total score: 0 Depression Screening Interpretation: Negative [id number] - PHQ-9 Billing: Yes Source: Developed by Drs. Gary Turcios, Ashly Shabazz, Brent Maurice and colleagues, with an educational carolyn from [employer]. Thrive Questionnaire Date Thrive assessed: 01/01/23 I am a: Patient What is your living situation today?: I have a steady place to live Within the past 12 months, did the food you bought not last and you didn't have the money to get more?: Never true Within the past 12 months, did you worry whether your food would run out before you got money to buy more?: Never true Do you have trouble paying for medicines?: No Do you have trouble getting transportation to medical appointments?: No Do you have trouble paying your heating and electricity bill?: No Do you have trouble taking care of your child, family member or friend?: No Do you have trouble with day-to-day activities such as bathing, preparing meals, shopping, managing finances, etc.?: No Are you currently unemployed and looking for a job?: No Are you interested in more education?: No Please select the resources that you would like help with: None Currently or been in a relationship where the following occur: no concerns reported AUDIT C Alcohol Use Questionnaire (AUDIT-C) 1. How often do you have a drink containing alcohol?: Never 3. How often do you have six or more drinks on one occasion?: Never Total Score: 0 Score Reviewed/Action Taken: Yes MERCEDES-7 AMB Questionnaire MERCEDES-7 Date MERCEDES - 7 assessed: 01/01/23 Feeling nervous, anxious, or on edge: 0 = Not at all Not being able to stop or control worryin = Not at all Worrying too much about different things: 0 = Not at all Trouble relaxin = Not at all Being so restless that it is hard to sit still: 0 = Not at all Becoming easily annoyed or irritable: 0 = Not at all Feeling afraid as if something awful might happen: 0 = Not at all Total MERCEDES-7 score (0-4 normal; 5-9 mild; 10-14 moderate; 15-21 severe): 0 Source: Developed by Drs. Gary Turcios, Ashly Shabazz, Brent Maurice and colleagues, with an educational carolyn from [employer]. Review of Systems Const Denies chills, Denies fatigue, Denies fever(s) and Denies headache(s) ENT Denies dysphagia, Denies dizziness, Denies otalgia, Denies headache(s), Denies neck pain, Denies odynophagia and Denies sore throat Card Denies chest pain, Denies palpitations and Denies dyspnea Resp Denies cough and Denies dyspnea GI Denies abdominal pain, Denies constipation, Denies dysphagia, Denies heartburn, Denies diarrhea, Denies nausea, Denies odynophagia and Denies vomiting Denies nocturia and Denies dysuria Musc Denies arthralgias, Denies neck pain and Reports tingling (in both feet (on and off), and over the left thigh) Skin/Breast Denies rash Neuro Denies dizziness, Denies headache(s) and Reports tingling (in both feet (on and off), and over the left thigh) Endo Denies fatigue and Denies palpitations Physical exam (Primary Care) Vital Signs: Last Vital Signs Pulse 90 01/01/23 16:15 BP 118/68 01/01/23 16:15 Pulse Ox 92 01/01/23 16:15 Oxygen Delivery Method Room Air 01/01/23 16:15 BMI result Body Mass Index 44.9 Tobacco/Smoking Status: Tobacco use Status Tobacco use date assessed 01/01/23 01/01/23 16:17 Patient Tobacco Use Status Current everyday Tobacco 01/01/23 16:17 Tobacco use type Cigarette 01/01/23 16:17 e-Cigarette/Vaping Use Never Used 01/01/23 16:17 PHQ-9: PHQ-9 Score PHQ-9: Total score 0 01/01/23 16:40 Depression Screening Interpretation: Negative Thrive Assessment: Date of Thrive Assessment Date Thrive assessed 01/01/23 01/01/23 16:17 Currently or been in a relationship where the following occur: no concerns reported Const General: no acute distress and alert HENMT Ears: TM's normal bilaterally and EAC's normal Throat: Yes posterior oropharynx normal and Yes tonsils normal (no TP congestion) Neck Neck: Yes no lymphadenopathy and Yes supple Resp Auscultation: clear to auscultation bilaterally, no rales and no wheezes Cardio Rate: regular rate Rhythm: regular rhythm Heart sounds: no murmurs GI Palpation (GI): Soft to palpation and nontender Auscultation: normal bowel sounds Skin Rashes: no rashes Extrem General: Yes no clubbing, cyanosis or edema Results Reviewed Results Reviewed: Laboratory Tests 12/25/22 12/25/22 07:29 08:59 WBC 11.8 H Hgb 14.9 Hct 45.3 Plt Count 288 Sodium 140 Potassium 4.0 Creatinine 0.72 Estimated GFR > 60 Hemoglobin A1c % 6.7 H Calcium 9.7 AST 25 ALT 33 H Triglycerides 245 H Cholesterol 167 LDL Cholesterol, Calc 88 HDL Cholesterol 30 L 25-OH Vitamin D Total 68.0 TSH 2.17 Ur Specific Randolph >= 1.030 H Urine Protein Negative Urine Glucose (UA) >=1000 H Urine Blood Large (3+) H Assessment and Plan Assessment & Plan (1) Preop examination: Code(s): Z01.818 - Encounter for other preprocedural examination Plan: Patient presents with acceptable risks for planned intermediate cardiac risk procedure Results of her labs done recently reviewed and discussed with patient - results are attached to this report for review EKG done earlier today came out normal (copy attached) - NSR with no acute ST-T wave changes (2) Endometrial cancer: Comment: FIGO 1 endometrioid adenocarcinoma Code(s): C54.1 - Malignant neoplasm of endometrium Plan: She was recently diagnosed with grade 1 endometrioid adenocarcinoma during work up done for postmenopausal bleeding and is now scheduled to undergo a robotic assisted total laparoscopic hysterectomy, BSA, SLN mapping and biopsy under general anesthesia with Dr. Raquel Overton on 01/14/23 (3) Diabetes mellitus: Code(s): E11.9 - Type 2 diabetes mellitus without complications Qualifiers: Diabetes mellitus type: type 2 Diabetes mellitus watermelon harvesting supervisor insulin use: without watermelon harvesting supervisor use Diabetes mellitus complication status: with hyperglycemia Qualified Code(s): E11.65 - Type 2 diabetes mellitus with hyperglycemia Plan: Her diabetes is currently well-controlled HgbA1c was at 6.7% on her labs done last week (was at 6.5% a few months ago) - goal is at least <7.0% Reinforced diabetic diet Continue Metformin ER 500 mg BID and Farxiga 10 mg QD (4) Pure hypercholesterolemia: Code(s): E78.00 - Pure hypercholesterolemia, unspecified Plan: Advised that her total cholesterol and serum triglyceride levels have improved slightly from previous on her recent labs; her LDL cholesterol remains unchanged (near goal) at 88 mg/dl Reinforced low cholesterol diet Continue Rosuvastatin 5 mg QD (5) Elevated LFTs: Code(s): R79.89 - Other specified abnormal findings of blood chemistry Plan: Her LFTs have previously improved and have remained normal on her recent labs - were most likely due to a combination of her weight and cholesterol level Abdominal US done in June 2021 revealed (+) hepatomegaly and hepatic steatosis Patient is encouraged to continue working on her diet, exercise as tolerated and lose weight Will continue to monitor her LFTs regularly (6) Obstructive sleep apnea: Code(s): G47.33 - Obstructive sleep apnea (adult) (pediatric) Plan: Continue using CPAP device when sleeping at night - patient reports no issues or problems with her device (7) Vitamin D deficiency: Code(s): E55.9 - Vitamin D deficiency, unspecified Plan: Continue Vitamin D3 2000 units QD (8) Bilateral carpal tunnel syndrome: Code(s): G56.03 - Carpal tunnel syndrome, bilateral upper limbs Plan: S/P right carpal tunnel surgery in 2015 and left carpal tunnel release on 09/03/2017 - her wrist symptoms have improved significantly with surgery Just had carpal tunnel surgery on her right wrist again on 09/23/2022 - states that her surgery went well Follow up with orthopedics as scheduled (9) Smoker: Code(s): F17.200 - Nicotine dependence, unspecified, uncomplicated Plan: Counseled again on smoking cessation (10) Morbid obesity with BMI of 40.0-44.9, adult: Code(s): E66.01 - Morbid (severe) obesity due to excess calories; Z68.41 - Body mass index [BMI] 40.0-44.9, adult Plan: Reinforced diet/exercise as tolerated/lose weight Follow up with program checker at [facility] as scheduled Plan Patient currently appears medically optimized and has no contraindications to undergo laparoscopic hysterectomy and gynecologic procedures as planned on 01/14/2023 - she is MEDICALLY CLEARED for surgery Follow up in 1 month (post op) Coding Level of Care Code Est Pt Level 4 (40027) Diagnoses Preop examination Z01.818 Endometrial cancer C54.1 Type 2 diabetes mellitus with hyperglycemia, without long-term current use of insulin E11.65 Diabetes mellitus type: type 2 Diabetes mellitus residential insulin use: without watermelon harvesting supervisor use Diabetes mellitus complication status: with hyperglycemia Pure hypercholesterolemia E78.00 Elevated LFTs R79.89 Obstructive sleep apnea G47.33 Vitamin D deficiency E55.9 Bilateral carpal tunnel syndrome G56.03 Smoker F17.200 Morbid obesity with BMI of 40.0-44.9, adult E66.01; Z68.41
[2023-01-01 16:15] VITALS: BP 118/68; PULSE 90; O2SAT 92; BMI 44.9
== END 2023-01-01 16:48 | disposition home or self-care (01) ==
PROVIDERS: PCP Internal Medicine; Visit Provider Internal Medicine
DX: E11.65 Type 2 diabetes mellitus with hyperglycemia (principal); C54.1 Malignant neoplasm of endometrium; E66.01 Morbid (severe) obesity due to excess calories; Z68.41 Body mass index [BMI] 40.0-44.9, adult; Z01.818 Encounter for other preprocedural examination; R79.89 Other specified abnormal findings of blood chemistry; E78.00 Pure hypercholesterolemia, unspecified; G47.33 Obstructive sleep apnea (adult) (pediatric); E55.9 Vitamin D deficiency, unspecified; G56.03 Carpal tunnel syndrome, bilateral upper limbs; F17.210 Nicotine dependence, cigarettes, uncomplicated
CPT/HCPCS: 99214

== ENCOUNTER 2023-05-19 11:24 | Outpatient (AMB) | payer OTHER, SELFPAY ==
[2023-05-19 11:30] VITALS: BP 99/57; PULSE 84; BMI 44.5
--- NOTE | 2023-05-19 11:30 | A.OFFVIS_ITS ---
Intake Vital Signs 05/19/23 11:30 Height 5 ft 3 in Weight 251 lb 5.231 oz BMI 44.5 BP 99/57 L Blood Pressure Location Rt brachial Position Sitting Pulse 84 Intake Visit Reasons: 6 month follow up Intake Note: Paula presents in office today in 6 months follow up of constipation. CC: Patient states she is happy she is cancer free so far. Denies having any GI symptoms or concerns today. Centrifugal Separator Required: No Accompanied by: Self / Same As Patient Allergies No Known Allergies [No Known Allergies*] Allergy (Verified 01/01/23 16:40) HPI 6 month follow up HPI Details LAST VISIT: Hepatic steatosis No change on ultrasound. Liver enzymes are normal. Patient was encouraged to eat low-fat diet. Patient was encouraged to lose weight. Constipation Continue MiraLax daily. Increase fluid intake and activity to promote better bowel motility. Patient will return in 6 months and we will discuss going for colonoscopy. Patient currently is following up with oncologist in [facility] for possible surgery. Diagnosed with endometrial cancer. Patient is agreeable to this plan and verbalizes understanding of instructions. She was given the opportunity to ask questions and all questions answered. ? Thank you for allowing me to participate in her care Plan Medications New polyethylene glycol 3350 (Miralax) 17 grams PO DAILY 510 grams 2RF TODAY'S VISIT Patient is here today for follow-up and to discuss going for colonoscopy. Patient finally had her total hysterectomy for endometrial cancer. Patient is following up at [facility] with oncology. Patient reports that her surgery went well. Patient denies any issues with anesthesia. Reports that right now she is moving her bowels better. Patient denies any melena, hematochezia, unintentional weight loss or ribbon like stools. Patient denies any dyspepsia, dysphagia or odynophagia. Patient has a history of PRISCILLA and is using CPAP machine every night. Patient had suboptimal prep last colonoscopy and she is here returning to discuss repeat colonoscopy. Patient denies any cardiac or respiratory symptoms. Denies any GI concerning symptoms today [facility] Medical History Morbid obesity with BMI of 40.0-44.9, adult Onychomycosis Left wrist pain Elevated LFTs Morbid obesity with BMI of 45.0-49.9, adult Smoker Vitamin D deficiency Bilateral carpal tunnel syndrome Obstructive sleep apnea Pure hypercholesterolemia Diabetes mellitus Surgical History Hx of colonoscopy History of carpal tunnel release History of nasal surgery Family History Maternal Aunt Breast cancer Daughter Hyperthyroidism Di Duy's syndrome Mental health problem Social History Housing: Apartment Alcohol intake: never Patient Tobacco Use Status: Current everyday Tobacco user Tobacco use type: Cigarette Cigarettes Per Day: 10 Years Smoked: 38 e-Cigarette/Vaping Use: Never Used Second Hand Smoke Exposure: Yes service: No Current occupational status: employed 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, 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 Cognitive needs: No Hearing needs: No Vision needs: No Review of Systems Const Denies weight gain and Denies weight loss ENT Reports no additional complaints, Denies dysphagia and Denies odynophagia Card Reports no additional complaints Resp Reports no additional complaints GI Denies abdominal pain, Denies belching, Denies melena, Denies bloating, Denies change in bowel habits, Denies dysphagia, Denies excessive flatus, Denies dyspepsia, Denies heartburn, Denies diarrhea, Denies loose stools, Denies nausea, Denies odynophagia and Denies vomiting Reports no additional complaints Musc Reports no additional complaints Neuro Reports no additional complaints Psych Reports no additional complaints Endo Reports no additional complaints Physical Exam Vital Signs: Last Vital Signs Pulse 84 05/19/23 11:30 BP 99/57 L 05/19/23 11:30 BMI result Body Mass Index 44.5 Const General: healthy appearing, no acute distress and well developed Nutritional Appearance: obese Orientation/consciousness: patient oriented x3 Resp Effort & Inspection: normal respiratory effort, able to speak in complete sentences, no tracheal deviation and symmetric chest movement Auscultation: clear to auscultation bilaterally Cardio Rate: regular rate GI Inspection: Yes normal to inspection, No distended and Yes obesity Palpation (GI): Soft to palpation, not firm, nontender and No hepatosplenomegaly present Auscultation: normal bowel sounds General: Yes no CVA tenderness Back/Spine/Pelvis Back: no CVA tenderness Skin General skin exam: elasticity normal, turgor normal and dry skin Neuro General: patient oriented x3 Psych Appearance: grossly normal Mental Status: mental status grossly normal Assessment & Plan Assessment & Plan (1) Colon cancer screening: Code(s): Z12.11 - Encounter for screening for malignant neoplasm of colon (2) Elevated LFTs: Code(s): R79.89 - Other specified abnormal findings of blood chemistry (3) Hepatic steatosis: Code(s): K76.0 - Fatty (change of) liver, not elsewhere classified (4) Constipation: Code(s): K59.00 - Constipation, unspecified Qualifiers: Constipation type: slow transit constipation Qualified Code(s): K59.01 - Slow transit constipation Plan Patient had suboptimal prep last procedure. We will do 7 days of Dulcolax and split MiraLax plaque with Dulcolax tabs day before procedure. The importance of clear liquid diet and good bowel prep stressed to patient. We will book procedure today and will see her after the procedure. Patient has sleep apnea and using CPAP. Not on any anticoagulation medication. Patient denies any cardiac or respiratory symptoms. I will see her after the procedure, sooner on as needed basis. Patient is agreeable to this plan and verbalizes understanding of instructions. She was given the opportunity to ask questions and all questions answered. Thank you for allowing me to participate in her care Medications: New bisacodyl (Dulcolax (bisacodyl)) Start taking 2 tablet every night 7 days before the procedure and 1 day before procedure take 4 tablets at noon time followed by MiraLax prep 10 mg (2 x 5 mg) PO BEDTIME 30 tabs 0RF Z12.11 - Encounter for screening for malignant neoplasm of colon polyethylene glycol 3350 (Miralax) As directed by gastro[facility]ology department at [facility] 238 grams PO ONCE 238 grams 0RF Z12.11 - Encounter for screening for malignant neoplasm of colon Coding Level of Care Code Est Pt Level 3 (54501) Diagnoses Colon cancer screening Z12.11 Elevated LFTs R79.89 Hepatic steatosis K76.0 Slow transit constipation K59.01 Constipation type: slow transit constipation Time Spent (min) 25 Comment 15 minutes spent with patient and additional 10 minutes spent reviewing her records
== END 2023-05-19 12:15 | disposition home or self-care (01) ==
PROVIDERS: PCP Internal Medicine; Visit Provider Nurse Practitioner Family
DX: Z12.11 Encounter for screening for malignant neoplasm of colon (principal); R79.89 Other specified abnormal findings of blood chemistry; K76.0 Fatty (change of) liver, not elsewhere classified; K59.01 Slow transit constipation; Z01.818 Encounter for other preprocedural examination
CPT/HCPCS: 99213

== ENCOUNTER → 2023-05-19 11:24 | Outpatient (BNVA) | payer OTHER, SELFPAY | PROVIDERS: PCP Internal Medicine; Visit Provider Nurse Practitioner Family | DX: Z12.11 Encounter for screening for malignant neoplasm of colon (principal); K59.01 Slow transit constipation; Z76.0 Encounter for issue of repeat prescription; R79.89 Other specified abnormal findings of blood chemistry | CPT/HCPCS: 99212 ==

== ENCOUNTER 2023-08-11 09:53 | Outpatient (AMB) | payer OTHER, SELFPAY ==
--- NOTE | 2023-08-11 10:02 | A.OFFPC_ITS ---
Vital Signs 08/11/23 10:07 Height 5 ft 3 in Weight 253 lb 6 oz BMI 44.9 BP 100/62 Blood Pressure Location Lt brachial Position Sitting Pulse 86 Pulse Source Pulse Oximeter Pulse Oximetry (%) 98 Oxygen Delivery Method Room Air Intake Visit Reasons: DM Intake Note: Patient is here to follow up on DM, PRISCILLA. Structural Design Engineer Required: No Gold Stamper: Not Required per policy Accompanied by: Self / Same As Patient Allergies No Known Allergies [No Known Allergies*] Allergy (Verified 08/11/23 10:17) Medication List - Last Reconciled 08/11/23 by Durga Dietz MD bisacodyl (Dulcolax (bisacodyl)) 10 mg (2 x 5 mg) PO BEDTIME cholecalciferol (vitamin D3) 50 mcg PO DAILY [CPAP supplies As directed] dapagliflozin propanediol (Farxiga) 10 mg PO QAM 90 days flash glucose scanning reader (FreeStyle Napoleon 14 Day Oark) As directed FreeStyle Napoleon 14 Day Sensor (flash glucose sensor) As directed NS metformin ER 500 mg PO BID [id number]-calcium carb-K1 400 mcg-500 mg calcium-20 mcg (Women's 50 Plus Multivitamin) 1 tab PO .QD polyethylene glycol 3350 (Miralax) 17 grams PO DAILY polyethylene glycol 3350 (Miralax) 238 grams PO ONCE rosuvastatin 5 mg PO DAILY 30 days Tobacco use date assessed: 08/11/23 Dental Screening Dental Screen Date: 08/11/23 Did you have a dental visit in the last 12 months?: No Did you have a dental problem in the last 6 months where you did not have access to dental care?: No Was dental information given to patient?: Patient has dentist HPI DM HPI Details Patient comes in today for her follow up visit States that she feels okay except for some right flank pains for the past week She denies any acute urinary symptoms and notes that her right flank pains seem to ease up when she is lying down She also does not recall any recent injury or trauma to her right lower back or flank areas She denies any headaches or dizziness Denies any chest pains, no SOB No nausea/vomiting, no abdominal pain No change in bowel habits noted She has no follow up labs ordered for today's follow up appointment [facility] Medical History (Updated 05/06/24 @ 10:40 by Durga Dietz MD) Endometrial cancer Morbid obesity with BMI of 40.0-44.9, adult Onychomycosis Elevated LFTs Smoker Vitamin D deficiency Bilateral carpal tunnel syndrome Obstructive sleep apnea Pure hypercholesterolemia Diabetes mellitus Surgical History (Updated 08/11/23 @ 10:21 by Durga Dietz MD) History of robot-assisted laparoscopic hysterectomy Hx of colonoscopy History of carpal tunnel release History of nasal surgery Family History Maternal Aunt Breast cancer Daughter Hyperthyroidism Di Duy's syndrome Mental health problem Social History Housing: Apartment Alcohol intake: never Patient Tobacco Use Status: Current everyday Tobacco user Tobacco use type: Cigarette Cigarette Packs Per Day: 0.5 Cigarettes Per Day: 10 Years Smoked: 38 e-Cigarette/Vaping Use: Never Used Second Hand Smoke Exposure: Yes service: No Current occupational status: employed Current occupation: [employer], 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 1. Little interest or pleasure in doing things: not at all 2. Feeling down, depressed, or hopeless: not at all 3. Trouble falling or staying asleep, or sleeping too much: not at all 4. Feeling tired or having little energy: not at all 5. Poor appetite or overeating: not at all 6. Feeling bad about yourself - or that you are a failure or have let yourself or your family down: not at all 7. Trouble concentrating on things, such as reading the newspaper or watching television: not at all 8. Moving or speaking so slowly that other people could have noticed. Or the opposite - being so fidgety or restless that you have been moving around a lot more than usual: not at all 9. Thoughts that you would be better off or of hurting yourself in some way: not at all Total score: 0 Depression Screening Interpretation: Negative Depression Screening Done: Yes 64440 - PHQ-9 Billing: Yes Source: Developed by Drs. Gary L. Ashly Turcios Kurt Kroenke and colleagues, with an educational carolyn from [employer]. Thrive Questionnaire Date Thrive assessed: 08/11/23 I am a: Patient What is your living situation today?: I have a steady place to live Within the past 12 months, did the food you bought not last and you didn't have the money to get more?: Never true Within the past 12 months, did you worry whether your food would run out before you got money to buy more?: Never true Do you have trouble paying for medicines?: No Do you have trouble getting transportation to medical appointments?: No Do you have trouble paying your heating and electricity bill?: No Do you have trouble taking care of your child, family member or friend?: No Do you have trouble with day-to-day activities such as bathing, preparing meals, shopping, managing finances, etc.?: No Are you currently unemployed and looking for a job?: No Are you interested in more education?: No Currently or been in a relationship where the following occur: no concerns reported THRIVE Score: 0 AUDIT C Alcohol Use Questionnaire (AUDIT-C) 1. How often do you have a drink containing alcohol?: Never 3. How often do you have six or more drinks on one occasion?: Never Total Score: 0 Score Reviewed/Action Taken: Yes MERCEDES-7 AMB Questionnaire MERCEDES-7 Date MERCEDES - 7 assessed: 08/11/23 Feeling nervous, anxious, or on edge: 0 = Not at all Not being able to stop or control worryin = Not at all Worrying too much about different things: 0 = Not at all Trouble relaxin = Not at all Being so restless that it is hard to sit still: 0 = Not at all Becoming easily annoyed or irritable: 0 = Not at all Feeling afraid as if something awful might happen: 0 = Not at all Total MERCEDES-7 score (0-4 normal; 5-9 mild; 10-14 moderate; 15-21 severe): 0 Source: Developed by Ashly Cheung Kurt Kroenke and colleagues, with an educational carolyn from [employer]. Review of Systems Const Denies chills, Denies fatigue, Denies fever(s) and Denies headache(s) ENT Denies dysphagia, Denies dizziness, Denies otalgia, Denies headache(s), Denies neck pain, Denies odynophagia and Denies sore throat Card Denies chest pain, Denies palpitations and Denies dyspnea Resp Denies cough and Denies dyspnea GI Denies abdominal pain, Denies constipation, Denies dysphagia, Denies heartburn, Denies diarrhea, Denies nausea, Denies odynophagia and Denies vomiting Denies nocturia and Denies dysuria Musc Denies arthralgias, Denies neck pain and Reports tingling (in both feet (on and off), and over the left thigh) Skin/Breast Denies rash Neuro Denies dizziness, Denies headache(s) and Reports tingling (in both feet (on and off), and over the left thigh) Endo Denies fatigue and Denies palpitations Physical exam (Primary Care) Vital Signs: Last Vital Signs Pulse 86 08/11/23 10:07 BP 100/62 08/11/23 10:07 Pulse Ox 98 08/11/23 10:07 Oxygen Delivery Method Room Air 08/11/23 10:07 BMI result Body Mass Index 44.9 Tobacco/Smoking Status: Tobacco use Status Tobacco use date assessed 08/11/23 08/11/23 10:14 Patient Tobacco Use Status Current everyday Tobacco 08/11/23 10:14 Tobacco use type Cigarette 08/11/23 10:14 e-Cigarette/Vaping Use Never Used 08/11/23 10:14 PHQ-9: PHQ-9 Score PHQ-9: Total score 0 08/11/23 10:14 Depression Screening Interpretation: Negative Thrive Assessment: Date of Thrive Assessment Date Thrive assessed 08/11/23 08/11/23 10:14 Currently or been in a relationship where the following occur: no concerns reported Const General: no acute distress and alert HENMT Ears: TM's normal bilaterally and EAC's normal Throat: Yes posterior oropharynx normal and Yes tonsils normal (no TP congestion) Neck Neck: Yes no lymphadenopathy and Yes supple Thyroid: Thyroid normal Resp Auscultation: clear to auscultation bilaterally, no rales and no wheezes Cardio Rate: regular rate Rhythm: regular rhythm Heart sounds: no murmurs GI Palpation (GI): Soft to palpation and nontender Auscultation: normal bowel sounds General: Yes no CVA tenderness Back/Spine/Pelvis Back: no CVA tenderness Skin Rashes: no rashes Extrem General: Yes no clubbing, cyanosis or edema Results AMB Hemoglobin A1c AMB Hemoglobin A1c 7.8 % Last Edit by BUD Segovia on 08/11/23 10:17 Assessment and Plan Assessment & Plan (1) Diabetes mellitus: Code(s): E11.9 - Type 2 diabetes mellitus without complications Qualifiers: Diabetes mellitus type: type 2 Diabetes mellitus keno terminal operator insulin use: without penitentiary use Diabetes mellitus complication status: with hyperglycemia Qualified Code(s): E11.65 - Type 2 diabetes mellitus with hyperglycemia Plan: In-office HgbA1c done today is at 7.8% (HgbA1c was at 6.7% back in December 2022) - goal is at least <7.0% Reinforced diabetic diet Continue Metformin ER 500 mg BID and Farxiga 10 mg QD (2) Pure hypercholesterolemia: Code(s): E78.00 - Pure hypercholesterolemia, unspecified Plan: Her LDL cholesterol was at or near goal at 88 mg/dl when last checked last fall (December 2022) Reinforced low cholesterol diet Continue Rosuvastatin 5 mg QD Will recheck her labs and fasting lipids in 4 months for follow up (3) Elevated LFTs: Code(s): R79.89 - Other specified abnormal findings of blood chemistry Plan: Her serum ALT was slightly elevated when she last had her labs done back in December 2022 - is likely due to hepatosteatosis Abdominal US done in June 2021 revealed (+) hepatomegaly and hepatic steatosis Patient is encouraged to continue working on her diet, exercise as tolerated and lose weight Will continue to monitor her LFTs regularly (4) Obstructive sleep apnea: Code(s): G47.33 - Obstructive sleep apnea (adult) (pediatric) Plan: Continue using CPAP device when sleeping at night - patient reports no issues or problems with her device (5) Endometrial cancer: Comment: FIGO 1 endometrioid adenocarcinoma; S/P hysterectomy Code(s): C54.1 - Malignant neoplasm of endometrium Plan: She was diagnosed with grade 1 endometrioid adenocarcinoma during work up done for postmenopausal bleeding last year and eventually underwent robotic assisted total laparoscopic hysterectomy, BSA, SLN mapping and biopsy under general anesthesia with Dr. Raquel Overton on 10/10/23 She was reportedly advised that she does not need any additional treatments at this time Follow up with gynecologic oncology as scheduled - has appt scheduled on 09/22/23 (6) Right flank pain: Code(s): R10.9 - Unspecified abdominal pain Plan: Patient is advised that her recent right flank pains are most likely musculoskeletal but will send her for some labs MORRIS for further evaluation, particularly labs to recheck her renal function She is advised that if her labs and urinalysis come back normal, then would recommend she apply some warm compress over her right flank area PRN for symptomatic relief (7) Vitamin D deficiency: Code(s): E55.9 - Vitamin D deficiency, unspecified Plan: Continue Vitamin D3 2000 units QD (8) Bilateral carpal tunnel syndrome: Code(s): G56.03 - Carpal tunnel syndrome, bilateral upper limbs Plan: S/P right carpal tunnel surgery in 2015 and left carpal tunnel release on 09/03/2017 - her wrist symptoms have improved significantly with surgery She had carpal tunnel surgery on her right wrist again on 09/23/2022 - states that her surgery went well and symptoms have improved with surgery Follow up with orthopedics as scheduled (9) Smoker: Code(s): F17.200 - Nicotine dependence, unspecified, uncomplicated Plan: Counseled again on smoking cessation (10) Morbid obesity with BMI of 40.0-44.9, adult: Code(s): E66.01 - Morbid (severe) obesity due to excess calories; Z68.41 - Body mass index [BMI] 40.0-44.9, adult Plan: Reinforced diet/exercise as tolerated/lose weight Follow up with [facility] at [facility] as scheduled Plan Follow up in 4 months Orders: Orders Complete Blood Count Auto Diff 4 Months D64.9 - Anemia, unspecified Vitamin B12 and Folate 4 Months E53.8 - Deficiency of other specified B group vitamins Comprehensive Met. Panel Today R10.9 - Unspecified abdominal pain Complete Blood Count Auto Diff Today D64.9 - Anemia, unspecified, R10.9 - Unspecified abdominal pain UA CC w/rflx Micro + Cult Today R10.9 - Unspecified abdominal pain AMB Hemoglobin A1c Today E11.65 - Type 2 diabetes mellitus with hyperglycemia Comprehensive [place]. Panel Fast 4 Months E78.00 - Pure hypercholesterolemia, unspecified Lipid Panel 4 Months E78.00 - Pure hypercholesterolemia, unspecified Hemoglobin A1c 4 Months E11.9 - Type 2 diabetes mellitus without complications Microalbumin, Random (w Creat) 4 Months E11.9 - Type 2 diabetes mellitus without complications TSH reflex Free T4 4 Months E78.00 - Pure hypercholesterolemia, unspecified UA CC w/rflx Micro + Cult 4 Months R30.0 - Dysuria Vitamin D 25-OH Total 4 Months E55.9 - Vitamin D deficiency, unspecified Coding Level of Care Code Est Pt Level 4 (52991) Diagnoses Type 2 diabetes mellitus with hyperglycemia, without long-term current use of insulin E11.65 Diabetes mellitus type: type 2 Diabetes mellitus keno terminal operator insulin use: without keno terminal operator use Diabetes mellitus complication status: with hyperglycemia Pure hypercholesterolemia E78.00 Elevated LFTs R79.89 Obstructive sleep apnea G47.33 Endometrial cancer C54.1 Right flank pain R10.9 Vitamin D deficiency E55.9 Bilateral carpal tunnel syndrome G56.03 Smoker F17.200 Morbid obesity with BMI of 40.0-44.9, adult E66.01; Z68.41
[2023-08-11 10:07] VITALS: BP 100/62; PULSE 86; O2SAT 98; BMI 44.9
== END 2023-08-11 10:38 | disposition home or self-care (01) ==
PROVIDERS: PCP Internal Medicine; Visit Provider Internal Medicine
DX: E11.65 Type 2 diabetes mellitus with hyperglycemia (principal); C54.1 Malignant neoplasm of endometrium; E66.01 Morbid (severe) obesity due to excess calories; Z68.41 Body mass index [BMI] 40.0-44.9, adult; E78.00 Pure hypercholesterolemia, unspecified; R79.89 Other specified abnormal findings of blood chemistry; G47.33 Obstructive sleep apnea (adult) (pediatric); R10.9 Unspecified abdominal pain; E55.9 Vitamin D deficiency, unspecified; G56.03 Carpal tunnel syndrome, bilateral upper limbs; F17.200 Nicotine dependence, unspecified, uncomplicated
CPT/HCPCS: 83036; 99214

== ENCOUNTER 2023-08-11 10:53 | Outpatient (REF) | payer OTHER, SELFPAY ==
[2023-08-11 11:13] LABS: MANUAL DIFF FLAG NO
[2023-08-11 11:40] LABS: Basophils Percent Auto 0.5 % (0-2); Eosinophils Absolute Auto 0.2 X10*3/uL (0.0-0.4); Eosinophils Percent Auto 1.8 % (0-4); Hematocrit 47.9 % (37.0-47.0); Hemoglobin 15.8 g/dl (12.0-16.0); Imm Gran Abs Auto 0.08 X10*3/uL (0.00-0.03); Imm Gran Pct Auto 0.9 % (0.0-0.4); Lymphocytes Percent Auto 33.7 % (20-40); Mean Corpuscular Hemoglobin 29.5 pg (27.0-33.0); Mean Corpuscular Volume 89.5 fL (80.0-98.0); Monocytes Absolute Auto 0.5 X10*3/uL (0.1-1.2); Monocytes Percent Auto 5.5 % (2-11); Neutrophils Absolute Auto 5.1 x10*3/uL (2.0-8.3); Neutrophils Percent Auto 57.6 % (45-73); Platelet Count 283 X10*3/uL (160-400); Red Blood Count 5.35 X10*6/uL (4.20-5.50); Red Cell Distribution Width 13.9 % (11.0-16.0); White Blood Count 8.8 X10*3/uL (4.8-10.8)
[2023-08-11 12:09] LABS: Alanine Aminotransferase 27 U/L (0-31); Albumin Level 4.1 g/dL (3.5-5.0); Alkaline Phosphatase 111 U/L (39-117); Anion Gap 15 (12-20); Aspartate Amino Transferase 18 U/L (5-31); Bilirubin Total 0.3 mg/dL (0.0-1.0); Blood Urea Nitrogen 15 mg/dL (9-16); Calcium 10.4 mg/dL (8.4-10.2); Carbon Dioxide 27 mmol/L (22-29); Chloride 104 mmol/L (96-108); Estimated Glomerular Filt Rate > 60; Glucose Random 139 mg/dL (60-115); Potassium 4.6 mmol/L (3.3-5.1); Sodium 141 mmol/L (135-145); Total Protein 8.4 g/dL (6.5-8.0)
[2023-08-11 14:25] LABS: Appearance Urine Clear; Color Urine Yellow; Glucose Urine UA >=1000 mg/dL (Negative); Leukocyte Esterase Urine Negative (Negative); Nitrite Urine Negative (Negative); PH 6.5 (5.0-9.0); Specific Gravity - Urine >= 1.030 (1.005-1.025); UMIC TRIGGER UACC YES; Urine Blood Negative (Negative); Urine Ketones Negative (Negative); Urine Protein Negative (Neg-Trace)
[2023-08-11 15:09] LABS: Bacteria Urine 1+ (None Seen); Hyaline Casts Urine 0-2 /LPF (0-2); RBC Urine 0-2 /HPF (0-2); UACC Culture Trigger YES
== END 2023-08-11 10:54 | disposition home or self-care (01) ==
LOC: HO.LAB 10:53
PROVIDERS: PCP Internal Medicine; Visit Provider Internal Medicine
DX: D64.9 Anemia, unspecified (principal); R10.9 Unspecified abdominal pain
CPT/HCPCS: 36415; 80053; 81001; 85025

== ENCOUNTER 2023-09-11 10:44 | Inpatient (IN) | payer OTHER, SELFPAY ==
[2023-09-11] VITALS (11 sets, daily range): BP systolic 105–126; BP diastolic 53–60; PULSE 74–91; RESP 16–19; TEMP 36.6–37.1; O2SAT 88–98; BMI 45.2
--- NOTE | ~2023-09-11 | XR_ITS ---
EXAMINATION: XR CHEST CLINICAL INFORMATION: SOB COMPARISON: Chest 02/09/2009 TECHNIQUE: 2 views of the chest were obtained. FINDINGS: The lungs are well expanded. There is prominence of the interstitial markings. There is slight streaky opacity in the lingula suggestive of minimal atelectasis. No focal consolidation, katerine interstitial pulmonary edema or pneumothorax. No pleural effusion. No significant abnormality is noted involving the heart, mediastinum, bony thorax or soft tissues. XR/XR chest 2V IMPRESSION: 1. No pneumonia. 2. Mild prominence of the interstitial markings.
--- NOTE | 2023-09-11 11:36 | ED.URI ---
HPI - URI/Sore Throat General Chief Complaint: Upper Respiratory Symptoms Stated Complaint: Difficulty breathing - allergies Time Seen by Provider: 09/11/23 11:19 Source: patient and RN notes reviewed Mode of arrival: ambulatory Limitations: no limitations History of Present Illness ED Provider: Erica Aggarwal PA-C HPI Narrative: This is a 57-year-old female, with a history of diabetes, who presents emergency department with complaints of congestion and cough x2 weeks. She felt that she was developing seasonal allergies as she was having nasal congestion and cough. She states that over the past week she has had a productive cough with white-colored sputum. Patient states that while she was at work today she felt her symptoms worsened and developed some shortness of breath. She denies any associated chest pain. She has been taking [place] at home to treat her symptoms which has provided her with minimal relief. She denies any fevers, chills, ear pain, sore throat, palpitations, abdominal pain, nausea, vomiting or diarrhea. She has an 80 pack year history. No other complaints or concerns at this time. MD elicited complaint: cough and nasal congestion Pertinent past history: seasonal allergies Consistency: constant Description of mucous: other (White) Able to tolerate fluids by mouth: Yes Exacerbating factors: nothing Relieving factors: OTC cold medicine Associated symptoms: denies other symptoms Treatments prior to arrival: none Related Data Home Medications ?Medication ?Instructions ?Recorded ?Confirmed cholecalciferol (vitamin D3) 50 50 mcg PO DAILY 02/04/20 09/11/23 mcg (2,000 unit) capsule mbcrysmh-jdq-revim ac 400 1 tab PO .QD 02/04/20 09/11/23 mcg-calcium carb 500 mg-vit K1 20 mcg tablet (Women's 50 Plus Multivitamin) Previous Rx's ?Medication ?Instructions ?Recorded flash glucose scanning reader #1 ea 02/21/21 (FreeStyle [place] 14 Day [place]) CPAP supplies #1 ea 03/07/22 FreeStyle [place] 14 Day Sensor #1 ea 03/07/22 (flash glucose sensor) metformin 500 mg tablet,extended 500 mg PO BID #180 caps 04/28/23 release 24 hr rosuvastatin 5 mg tablet 5 mg PO DAILY 30 days #30 tabs 06/19/23 empagliflozin 25 mg tablet 25 mg PO QAM #30 tabs 09/02/23 (Jardiance) Allergies Allergy/AdvReac Type Severity Reaction Status Date / Time No Known Allergies Allergy Verified 09/11/23 10:55 [No Known Allergies*] Review of Systems Review of Systems: Yes all other systems are reviewed and are negative Constitutional: Constitutional: Reports as per [facility] Past Medical History Medical History Endometrial cancer Morbid obesity with BMI of 40.0-44.9, adult Onychomycosis Elevated LFTs Smoker Vitamin D deficiency Bilateral carpal tunnel syndrome Obstructive sleep apnea Pure hypercholesterolemia Diabetes mellitus Surgical History History of robot-assisted laparoscopic hysterectomy Hx of colonoscopy History of carpal tunnel release History of nasal surgery Family History Family History Maternal Aunt Breast cancer Daughter Hyperthyroidism Di Duy's syndrome Mental health problem Social History Social History Housing: Apartment Alcohol intake: never Patient Tobacco Use Status: Current everyday Tobacco user Tobacco use type: Cigarette Cigarette Packs Per Day: 0.5 Cigarettes Per Day: 10 Years Smoked: 38 Smoked in Last 30 Days: Yes e-Cigarette/Vaping Use: Never Used Second Hand Smoke Exposure: Yes Use of substances other than those prescribed or required for medical reasons: No Advance Directives: No Advance Directives Information Provided: Yes Do you have a plan to hurt others: No Plan Patient : No service: No Current occupational status: employed 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, 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 Cognitive needs: No Hearing needs: No Vision needs: Yes (Glasses) Physical Exam Vital Signs: Vital Signs: Last Vital Signs Temp 98.7 F 09/11/23 22:43 Pulse 83 09/11/23 22:43 Resp 19 09/11/23 22:43 BP 126/58 L 09/11/23 22:43 Pulse Ox 93 09/11/23 22:43 O2 Del Method Room Air 09/11/23 22:43 BMI result Body Mass Index 45.2 Const: General: cooperative, comfortable and no acute distress Orientation/consciousness: patient oriented x3 Limitations: no limitations HEENT: Head: Yes normal to inspection, Yes normocephalic and Yes atraumatic Ears: hearing grossly normal bilaterally General nose exam: Normal external nose present Face and sinus: Yes normal facial exam Mouth: Normal oral and palatal mucosa present, oropharynx normal and moist mucous membranes Throat: Yes posterior oropharynx normal Eyes: General: appearance normal, both eyes and all related structures Eyelids: Yes eyelids normal Conjunctivae: conjunctivae normal Sclerae: sclerae normal Pupils: Equal, round and reactive pupils present EOM: EOMs intact bilaterally Neck: Neck: Yes normal visual inspection, Yes full ROM and Yes no lymphadenopathy Lymphatic: no lymphadenopathy noted Chest: Chest palpation & inspection: normal inspection of the chest Resp: Other: Rhonchorous and Diminished lung sounds throughout, inspiratory and expiratory wheezes in the right upper and lower lung li Effort & Inspection: normal respiratory effort and able to speak in complete sentences Cardio: Rate: regular rate Rhythm: regular rhythm Heart sounds: S1 normal heart sound present and S2 normal heart sound present GI: Inspection: Yes normal to inspection Skin: General skin exam: no rashes or lesions noted Trauma: no lacerations or abrasions Wounds: no wounds Neuro: General: patient oriented x3 and moves all extremities Cranial nerves: Yes Equal, round and reactive pupils present Extrem: General: Yes normal to inspection Right upper extremity: normal to inspection Left upper extremity: normal to inspection Right lower extremity: normal to inspection Left lower extremity: normal to inspection Course Reevaluation(s) Reevaluation #1: Patient re-evaluated, labs returned, she has no leukocytosis, stable H&H, slight hyperglycemia at 142, negative troponin. Negative viral swabs. Chest x-ray still pending. EKG normal sinus rhythm. No history of COPD however she is a smoker. She states that she smokes approximately 10 cigarettes per day however previously was a 2 pack per day smoker since age 18. Patient with inspiratory and expiratory wheezes and diminished throughout, would benefit from a updraft. Time: 13:07 Reevaluation #2: Patient re-evaluated after receiving updraft, patient states that the updraft did help her symptoms however patient was walked, oxygen saturation dipped down to 88% on room air. Given hypoxia, will treat as a COPD exacerbation, medicated with IV Solu-Medrol, Rocephin, and Zithromax. Time: 15:00 Reevaluation #3: Patient medicated, patient re-evaluated, feeling ok, lung sounds did not improve after IV steriods and multiple updrafts. Given hypoxia and minimal improvement, admit to medicine for hypoxia and bronchitis, transfer of care initiated. Time: 17:05 Medications Administered Generic Name Dose Route Start Last Admin Trade Name Barb PRN Reason Stop Dose Admin Albuterol/Ipratropium 3 ml 09/11/23 20:00 09/11/23 19:28 Albuterol/Iprat 2.5/0.5mg 3 Ml Ampul.Neb INHALE 3 ml RQ4H WHILE AWAKE ETHAN Administration Empagliflozin 25 mg 09/11/23 21:30 09/11/23 22:40 Empagliflozin 25 Mg Tablet PO 25 mg DAILY ETHAN Administration Enoxaparin Sodium 40 mg 09/11/23 19:15 09/11/23 20:47 Enoxaparin Sodium 40 Mg/0.4 Ml Syringe SUBCUT 40 mg Q24H ETHAN Administration Insulin Human Lispro 0 unit 09/11/23 21:00 09/11/23 22:40 Insulin Lispro 100 Unit/Ml 3 Ml Vial SUBCUT 6 unit QIDACHS ETHAN Administration Protocol Nicotine 14 mg 09/11/23 19:55 09/11/23 20:47 Nicotine 14 Mg Patch.Td24 TRANSDERMA 14 mg DAILY ETHAN Administration Discontinued Medications Generic Name Dose Route Start Last Admin Trade Name Barb PRN Reason Stop Dose Admin Albuterol Sulfate 2.5 mg/ 0 mg 09/11/23 13:18 09/11/23 13:24 Albuterol/Ipratropium 3 ml INHALE 09/11/23 13:19 5 dose ONCE ONE Administration Albuterol Sulfate 2.5 mg/ 0 mg 09/11/23 13:45 09/11/23 13:48 Albuterol/Ipratropium 3 ml INHALE 09/11/23 13:46 5 dose ONCE ONE Administration Ceftriaxone Sodium 1 gm/ 50 mls @ 100 mls/hr 09/11/23 15:12 09/11/23 16:56 Sodium Chloride IV 09/11/23 15:41 Infused ONCE ONE Infusion Azithromycin 500 mg/ Sodium 250 mls @ 125 mls/hr 09/11/23 15:12 09/11/23 19:21 Chloride IV 09/11/23 17:11 Infused ONCE ONE Infusion Methylprednisolone Sodium Succinate 125 mg 09/11/23 15:07 09/11/23 16:22 Methylprednisolone Sod Succ 125 Mg/2 Ml Vial IVPUSH 09/11/23 15:08 125 mg ONCE ONE Administration Medical Decision Making Medical Decision Making [facility] Narrative: This is a 57-year-old female, with a history of diabetes, who presents emergency department with complaints of cough, congestion and shortness of breath. On arrival, oxygen saturation 91% on room air. This was reassessed, patient stable at 95%, she is afebrile, speaking full sentences under no acute respiratory distress. Differential diagnoses include pneumonia, URI, COVID, flu, less likely ACS, CHF. Plan: Labs, EKG, chest x-ray, viral swabs, +/- bronch protocol Differential Diagnosis Differential Diagnoses: The differential diagnosis associated with the presentation includes See above Admission/Observation Consideration of admission/observation: Escalation of care including admission/observation considered Escalation of care including admission/observation considered. Consult Healthcare Provider Management of the patient was discussed with: Hospitalist Lab Data [facility] Lab Attestation statement: I reviewed the patient's lab results. No leukocytosis, stable H&H, chemistry revealing mild hyperglycemia at 1:42 a.m., troponin x2 negative. Negative viral swabs 09/11/23 11:58 09/11/23 11:58 Labs: Lab Results 09/11/23 09/11/23 09/11/23 Range/Units 11:10 11:58 15:46 WBC 8.5 (4.8-10.8) X10*3/uL RBC 5.33 (4.20-5.50) X10*6/uL Hgb 15.7 (12.0-16.0) g/dl Hct 47.5 H (37.0-47.0) % MCV 89.1 (80.0-98.0) fL MCH 29.5 (27.0-33.0) pg MCHC 33.1 (31.0-35.0) g/dl RDW 14.1 (11.0-16.0) % Plt Count 253 (160-400) X10*3/uL MPV 8.9 L (9.4-12.3) fL Immature Gran % (Auto) 0.6 H (0.0-0.4) % Neut % (Auto) 79.6 H (45-73) % Lymph % (Auto) 15.5 L (20-40) % [place] % (Auto) 3.2 (2-11) % Eos % (Auto) 0.7 (0-4) % Baso % (Auto) 0.4 (0-2) % Lymph # (Auto) 1.3 (1.2-4.9) X10*3/uL [place] # (Auto) 0.3 (0.1-1.2) X10*3/uL Eos # (Auto) 0.1 (0.0-0.4) X10*3/uL Baso # (Auto) 0.0 (0.0-0.2) X10*3/uL Abs Immat Gran (auto) 0.05 H (0.00-0.03) X10*3/uL Absolute Neuts (auto) 6.8 (2.0-8.3) x10*3/uL Absolute Nucleated RBC 0.000 (0.0-0.012) X10*3/uL Nucleated RBC % (auto) 0.0 (0.0-0.2) /100WBC Sodium 141 (135-145) mmol/L Potassium 3.8 (3.3-5.1) mmol/L Chloride 106 (96-108) mmol/L Carbon Dioxide 27 (22-29) mmol/L Anion Gap 12 (12-20) BUN 15 (9-16) mg/dL Creatinine 0.68 (0.5-1.4) mg/dL Estim Creat Clear Calc 114.7 Estimated GFR > 60 Random Glucose 142 H (60-115) mg/dL Calcium 9.7 D (8.4-10.2) mg/dL Magnesium 2.0 (1.6-2.6) mg/dL Total Bilirubin 0.4 (0.0-1.0) mg/dL AST 16 (5-31) U/L ALT 24 (0-31) U/L Alkaline Phosphatase 101 (39-117) U/L Troponin I High Sens < 2.7 < 2.7 (<3.5-17.0) ng/L B-Natriuretic Peptide 21 (<100) pg/mL Total Protein 8.2 H (6.5-8.0) g/dL Albumin 4.1 (3.5-5.0) g/dL Influenza Type A (PCR) NEGATIVE (Negative) Influenza Type B (PCR) NEGATIVE (Negative) RSV RNA Qual (PCR) NEGATIVE (Negative) SARS-CoV-2 RNA (RT-PCR) NEGATIVE (Negative) Independent Interpretation I performed an independent interpretation of an: EKG and Plain X-Ray Interpretation: Normal sinus rhythm at a ventricular rate of 80 beats per minute, QT QTC 396/456, no ST elevation or depression. No acute consolidation seen on chest x-ray, I agree with the radiology report Radiology Impression Discussion of test interpretation with radiology: I have reviewed the radiologist's reading. Radiologist Impression: EXAMINATION: XR CHEST CLINICAL INFORMATION: SOB COMPARISON: Chest 02/09/2009 TECHNIQUE: 2 views of the chest were obtained. FINDINGS: The lungs are well expanded. There is prominence of the interstitial markings. There is slight streaky opacity in the lingula suggestive of minimal atelectasis. No focal consolidation, katerine interstitial pulmonary edema or pneumothorax. No pleural effusion. No significant abnormality is noted involving the heart, mediastinum, bony thorax or soft tissues. XR/XR chest 2V IMPRESSION: 1. No pneumonia. 2. Mild prominence of the interstitial markings. Dictated By: Deepali Arevalo MD Prescription Management I considered prescription management with: Antibiotic Chronic Conditions Patient?s care impacted by: Diabetes Critical Care Time Critical Care Time Critical Care Time: Yes Total Critical Care Time: 35 Attestation: I have personally provided critical care time exclusive of time spent on separately billable procedures. Time includes review of lab data, radiology results, discussion with consultants, and monitoring for potential decompensation. Intervention performed as documented. Discharge Plan Discharge Clinical Impression: Bronchitis, Hypoxia Patient Disposition: Still a Patient
--- NOTE | 2023-09-11 11:43 | ECG_ITS ---
Test Reason : SOB Blood Pressure : / mmHG Vent. Rate : 080 BPM Atrial Rate : 080 BPM P-R Int : 148 ms QRS Dur : 086 ms QT Int : 396 ms P-R-T Axes : 047 080 031 degrees QTc Int : 456 ms Normal sinus rhythm Normal ECG When compared with ECG of 01-JAN-2023 10:27, No significant change was found Referred By: Erica Aggarwal Electronically Signed By:JERSON MADERA MD
[2023-09-11 11:58] LABS: Influenza A PCR NEGATIVE (Negative); Influenza B PCR NEGATIVE (Negative); Resp Syncy Virus RNA Qual PCR NEGATIVE (Negative); SARS COV2 PCR INHOUSE NEGATIVE (Negative)
[2023-09-11 12:03] LABS: MANUAL DIFF FLAG NO
[2023-09-11 12:10] LABS: Basophils Percent Auto 0.4 % (0-2); Eosinophils Absolute Auto 0.1 X10*3/uL (0.0-0.4); Eosinophils Percent Auto 0.7 % (0-4); Hematocrit 47.5 % (37.0-47.0); Hemoglobin 15.7 g/dl (12.0-16.0); Imm Gran Abs Auto 0.05 X10*3/uL (0.00-0.03); Imm Gran Pct Auto 0.6 % (0.0-0.4); Lymphocytes Absolute Auto 1.3 X10*3/uL (1.2-4.9); Lymphocytes Percent Auto 15.5 % (20-40); Mean Corpuscular HGB Conc 33.1 g/dl (31.0-35.0); Mean Corpuscular Hemoglobin 29.5 pg (27.0-33.0); Mean Corpuscular Volume 89.1 fL (80.0-98.0); Mean Platelet Volume 8.9 fL (9.4-12.3); Monocytes Absolute Auto 0.3 X10*3/uL (0.1-1.2); Monocytes Percent Auto 3.2 % (2-11); Neutrophils Absolute Auto 6.8 x10*3/uL (2.0-8.3); Neutrophils Percent Auto 79.6 % (45-73); Platelet Count 253 X10*3/uL (160-400); Red Blood Count 5.33 X10*6/uL (4.20-5.50); Red Cell Distribution Width 14.1 % (11.0-16.0); White Blood Count 8.5 X10*3/uL (4.8-10.8)
[2023-09-11 12:20] LABS: Alanine Aminotransferase 24 U/L (0-31); Albumin Level 4.1 g/dL (3.5-5.0); Alkaline Phosphatase 101 U/L (39-117); Anion Gap 12 (12-20); Aspartate Amino Transferase 16 U/L (5-31); Bilirubin Total 0.4 mg/dL (0.0-1.0); Blood Urea Nitrogen 15 mg/dL (9-16); Calcium 9.7 mg/dL (8.4-10.2); Carbon Dioxide 27 mmol/L (22-29); Chloride 106 mmol/L (96-108); Creatinine Clr Calc Pharmacy 114.7; Estimated Glomerular Filt Rate > 60; Glucose Random 142 mg/dL (60-115); Potassium 3.8 mmol/L (3.3-5.1); Sodium 141 mmol/L (135-145); Total Protein 8.2 g/dL (6.5-8.0)
[2023-09-11 12:26] LABS: B Type Natriuretic Peptide 21 pg/mL (<100)
[2023-09-11 12:28] LABS: Troponin-I High Sensitivity < 2.7 ng/L (<3.5-17.0)
[2023-09-11] MEDS: Albuterol Sulfate 2.5 MG, Albuterol/Iprat 2.5/0.5MG 3 ML 3 ML INHALE ×2 (13:24→13:48)
[2023-09-11 16:17] LABS: Troponin-I High Sensitivity < 2.7 ng/L (<3.5-17.0)
[2023-09-11] MEDS: methylPREDNISolone Sod Succ 125 MG/2 ML VIAL IVPUSH (16:22)
[2023-09-11] MEDS: cefTRIAXone sodium 1 GM in 0.9 % Sodium Chloride 50 ML IV (16:23)
[2023-09-11] MEDS: Azithromycin 500 MG in 0.9 % Sodium Chloride 250 ML 125 MG IV (17:03)
[2023-09-11] MEDS: Albuterol/Iprat 2.5/0.5MG 3 ML AMPUL.NEB INHALE (19:28)
--- NOTE | 2023-09-11 19:28 | P.HPHOSP_ITS ---
History of Present Illness Date of Service: 09/11/23 Chief Complaint: Dyspnea This is a 57-year-old female with pertinent history of ydj-bbzotwl-vwzvsgnrq diabetes mellitus, tobacco use disorder, mixed hyperlipidemia, PRISCILLA on CPAP who presents to the emergency department for evaluation of dyspnea. Patient states he has been having nasal congestion and other symptoms of upper respiratory disease that has been ongoing for a week. She attributes this to allergy. Patient started having dyspnea which is worse with exertion 1 day prior to presentation. This is associated with wheezing and purulent cough. No history of asthma or COPD and is not on home inhalers. Has 80 pack-year smoking history and is a current smoker. No fever, chills, chest discomfort, palpitations, abdominal pain, changes in urinary or bowel habits. In the emergency department, patient with wheezing despite multiple DuoNeb treatments. Found to be hypoxemic with ambulation. Review of Systems 2 Constitutional: Constitutional: Reports fatigue Cardiovascular: Cardiovascular: Reports dyspnea on exertion Respiratory: Respiratory: Reports cough, Reports dyspnea on exertion and Reports wheezing Gastrointestinal: Gastrointestinal: Reports no additional gastrointestinal complaints Genitourinary: Genitourinary: Reports no additional female genitourinary complaints Endocrine: Endocrine: Reports fatigue Allergic/Immunologic: Allergic/Immunologic: Reports wheezing [facility] Medical History Endometrial cancer Morbid obesity with BMI of 40.0-44.9, adult Onychomycosis Elevated LFTs Smoker Vitamin D deficiency Bilateral carpal tunnel syndrome Obstructive sleep apnea Pure hypercholesterolemia Diabetes mellitus Family History Maternal Aunt Breast cancer Daughter Hyperthyroidism Di Duy's syndrome Mental health problem Surgical History History of robot-assisted laparoscopic hysterectomy Hx of colonoscopy History of carpal tunnel release History of nasal surgery Social History Housing: Apartment Alcohol intake: never Patient Tobacco Use Status: Current everyday Tobacco user Tobacco use type: Cigarette Cigarette Packs Per Day: 0.5 Cigarettes Per Day: 10 Years Smoked: 38 Smoked in Last 30 Days: Yes e-Cigarette/Vaping Use: Never Used Second Hand Smoke Exposure: Yes Use of substances other than those prescribed or required for medical reasons: No Advance Directives: No Advance Directives Information Provided: Yes Do you have a plan to hurt others: No Plan Patient : No service: No Current occupational status: employed 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, 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 Cognitive needs: No Hearing needs: No Vision needs: Yes (Glasses) Meds Allergies Allergy/AdvReac Type Severity Reaction Status Date / Time No Known Allergies Allergy Verified 09/11/23 10:55 [No Known Allergies*] Active Medications: Current Medications Acetaminophen (Acetaminophen 325 Mg Tablet) 650 mg PO Q6H PRN PRN Reason: Pain, Mild (Pain Scale 1-3) Albuterol/Ipratropium (Albuterol/Iprat 2.5/0.5mg 3 Ml Ampul.Neb) 3 ml INHALE RQ4H WHILE AWAKE ETHAN Albuterol/Ipratropium (Albuterol/Iprat 2.5/0.5mg 3 Ml Ampul.Neb) 3 ml INHALE RQ4H PRN PRN Reason: Wheezing Enoxaparin Sodium (Enoxaparin Sodium 40 Mg/0.4 Ml Syringe) 40 mg SUBCUT Q24H ETHAN Melatonin (Melatonin 3 Mg Tablet) 6 mg PO BEDTIME PRN PRN Reason: Insomnia Methylprednisolone Sodium Succinate (Methylprednisolone Sod Succ 40 Mg/Ml Vial) 40 mg IVPUSH Q12H ETHAN Ondansetron HCl (Ondansetron Hcl 4 Mg/2 Ml Vial) 4 mg IVPUSH Q8H PRN PRN Reason: Nausea and Vomiting Sodium Chloride (0.9 % Sodium Chloride Flush 3 Ml Syringe) 3 ml IVFLUSH QSHIFT [facility] Home Medications ?Medication ?Instructions ?Recorded ?Confirmed ?Last Taken ?Type cholecalciferol (vitamin D3) 50 50 mcg PO DAILY 02/04/20 09/11/23 09/11/23 06:00 History mcg (2,000 unit) capsule tjxymszr-ggb-pknbb ac 400 1 tab PO .QD 02/04/20 09/11/23 09/11/23 06:00 History mcg-calcium carb 500 mg-vit K1 20 mcg tablet (Women's 50 Plus Multivitamin) Physical Exam 2 Vital Signs and Narrative: Vital Signs: Last Vital Signs Temp 98.0 F 09/11/23 19:05 Pulse 78 09/11/23 19:05 Resp 18 09/11/23 19:05 BP 117/53 L 09/11/23 19:05 Pulse Ox 92 09/11/23 19:05 O2 Del Method Room Air 09/11/23 19:05 BMI result Body Mass Index 45.2 Middle-aged female lying in bed in no distress Neck supple, no JVD Regular rate and rhythm, S1-S2 heard Bilateral wheezing appreciated Abdomen soft nontender, no guarding, no rigidity Patient is awake, alert and oriented to self, place, time and person ; no focal motor deficit Psych: Normal mood No pedal edema Results Labs 09/11/23 11:58 09/11/23 11:58 Labs: Laboratory Results - last 24 hr 09/11/23 09/11/23 09/11/23 11:10 11:58 15:46 MCV 89.1 MCH 29.5 MCHC 33.1 RDW 14.1 Plt Count 253 MPV 8.9 L Immature Gran % (Auto) 0.6 H Neut % (Auto) 79.6 H Lymph % (Auto) 15.5 L [place] % (Auto) 3.2 Eos % (Auto) 0.7 Baso % (Auto) 0.4 Lymph # (Auto) 1.3 [place] # (Auto) 0.3 Eos # (Auto) 0.1 Baso # (Auto) 0.0 Abs Immat Gran (auto) 0.05 H Absolute Neuts (auto) 6.8 Absolute Nucleated RBC 0.000 Nucleated RBC % (auto) 0.0 Anion Gap 12 Estim Creat Clear Calc 114.7 Estimated GFR > 60 Random Glucose 142 H Calcium 9.7 D Magnesium 2.0 Total Bilirubin 0.4 AST 16 ALT 24 Alkaline Phosphatase 101 Troponin I High Sens < 2.7 < 2.7 B-Natriuretic Peptide 21 Total Protein 8.2 H Albumin 4.1 Influenza Type A (PCR) NEGATIVE Influenza Type B (PCR) NEGATIVE RSV RNA Qual (PCR) NEGATIVE SARS-CoV-2 RNA (RT-PCR) NEGATIVE Imaging Radiologist's Impressions: Impressions Chest X-Ray 09/11/23 12:10 IMPRESSION: 1. No pneumonia. 2. Mild prominence of the interstitial markings. Assessment and Plan (1) Bronchitis: Status: Acute (2) Hypoxia: Status: Acute Plan This is a 57-year-old female with pertinent history of xeh-phznlfm-zcbgfcyll diabetes mellitus, tobacco use disorder, mixed hyperlipidemia, PRISCILLA on CPAP who presents to the emergency department for evaluation of dyspnea. #. Acute ambulatory hypoxemia due to acute bronchitis: Patient likely has underlying COPD with 80 pack-year smoking history. Outpatient follow-up. Will admit patient with scheduled and p.r.n. DuoNebs. Initiating systemic steroids. Initiating azithromycin for pleiotropic effect #. Eqb-fxvzhfs-eltgufylg diabetes mellitus: Initiating Accu-Cheks sliding scale insulin #. Mixed hyperlipidemia: On statin #. Tobacco use disorder: Counseled regarding cessation. Nicotine patch while in the hospital #. Obesity: Counseled regarding diet and exercise #. PRISCILLA: Continue CPAP at bedtime DVT prophylaxis: Lovenox Full code Admit as inpatient and will require two night minimum hospital stay for IV steroids, close monitoring of respiratory status (as above), which is not possible in a lesser acute setting. Quality Stroke Does the patient have a stroke diagnosis?: No VTE Prior VTE?: No VTE Risk Level:: Medical - moderate - high VTE Device Contraindication: Treatment Not Indicated VTE Drug Contraindication: N/A - Med Ordered
[2023-09-11] MEDS: Enoxaparin Sodium 40 MG/0.4 ML SYRINGE SUBCUT (20:47)
[2023-09-11] MEDS: Nicotine 14 MG PATCH.TD24 TRANSDERMA (20:47)
--- NOTE | 2023-09-11 22:05 | PC.RT ---
Pt refused CPAP
[2023-09-11 22:14] LABS: Glucose, Whole Blood 251 mg/dL (60-115)
[2023-09-11] MEDS: Empagliflozin 25 MG TABLET PO (22:40)
[2023-09-11] MEDS: Insulin Lispro 100 UNIT/ML 3 ML VIAL SUBCUT (22:40)
[2023-09-12 06:03] LABS: MANUAL DIFF FLAG NO
[2023-09-12 06:09] VITALS: BP 129/59; PULSE 70; RESP 18; TEMP 36.6
[2023-09-12 06:22] LABS: Anion Gap 13 (12-20); Blood Urea Nitrogen 14 mg/dL (9-16); Calcium 9.7 mg/dL (8.4-10.2); Carbon Dioxide 24 mmol/L (22-29); Chloride 109 mmol/L (96-108); Creatinine Clr Calc Pharmacy 116.4; Estimated Glomerular Filt Rate > 60; Glucose Random 151 mg/dL (60-115); Potassium 4.4 mmol/L (3.3-5.1); Sodium 142 mmol/L (135-145)
[2023-09-12 06:28] LABS: Basophils Percent Auto 0.1 % (0-2); Imm Gran Abs Auto 0.08 X10*3/uL (0.00-0.03); Imm Gran Pct Auto 0.9 % (0.0-0.4); Lymphocytes Absolute Auto 1.3 X10*3/uL (1.2-4.9); Lymphocytes Percent Auto 14.5 % (20-40); Mean Corpuscular HGB Conc 31.9 g/dl (31.0-35.0); Mean Corpuscular Hemoglobin 28.8 pg (27.0-33.0); Mean Corpuscular Volume 90.2 fL (80.0-98.0); Mean Platelet Volume 9.4 fL (9.4-12.3); Monocytes Absolute Auto 0.1 X10*3/uL (0.1-1.2); Monocytes Percent Auto 1.6 % (2-11); Neutrophils Absolute Auto 7.2 x10*3/uL (2.0-8.3); Neutrophils Percent Auto 82.9 % (45-73); Platelet Count 275 X10*3/uL (160-400); Red Blood Count 5.21 X10*6/uL (4.20-5.50); White Blood Count 8.7 X10*3/uL (4.8-10.8)
[2023-09-12 08:05] LABS: Glucose, Whole Blood 126 mg/dL (60-115)
[2023-09-12] MEDS: Atorvastatin Calcium 20 MG TABLET PO (08:50)
[2023-09-12] MEDS: Empagliflozin 25 MG TABLET PO (08:50)
[2023-09-12] MEDS: Nicotine 14 MG PATCH.TD24 TRANSDERMA (08:50)
[2023-09-12] MEDS: methylPREDNISolone Sod Succ 40 MG/ML VIAL IVPUSH (08:50)
[2023-09-12] MEDS: metFORMIN HCl ER 500 MG TAB.ER.24H PO (08:50)
[2023-09-12] MEDS: Cholecalciferol (Vitamin D3) 25 MCG TABLET 50 MCG PO (08:51)
[2023-09-12] MEDS: 0.9 % Sodium Chloride Flush 3 ML SYRINGE IVFLUSH (09:04)
[2023-09-12 09:23] VITALS: O2SAT 94
--- NOTE | 2023-09-12 09:36 | PC.NURSE ---
ambulation trial completed with patients , sating 94% on room air during ambulation
--- NOTE | 2023-09-12 10:34 | PM.DS ---
DS: Providers Provider Date of Service: 09/12/23 Date of admission: 09/11/23 19:02 Date of discharge: 09/12/23 Primary care physician: Durga Dietz MD Attending physician on discharge: Grayson Don Discharging clinician: Ryanne Blackmon DS: Diagnosis Discharge Diagnosis (1) Bronchitis: Status: Acute (2) Hypoxia: Status: Acute DS: Summary Hospital Course Hospital Course: From H&P on the day of admission This is a 57-year-old female with pertinent history of qol-mvtqmqb-elupuvucd diabetes mellitus, tobacco use disorder, mixed hyperlipidemia, PRISCILLA on CPAP who presents to the emergency department for evaluation of dyspnea. Patient states he has been having nasal congestion and other symptoms of upper respiratory disease that has been ongoing for a week. She attributes this to allergy. Patient started having dyspnea which is worse with exertion 1 day prior to presentation. This is associated with wheezing and purulent cough. No history of asthma or COPD and is not on home inhalers. Has 80 pack-year smoking history and is a current smoker. No fever, chills, chest discomfort, palpitations, abdominal pain, changes in urinary or bowel habits. In the emergency department, patient with wheezing despite multiple DuoNeb treatments. Found to be hypoxemic with ambulation. Acute respiratory failure with hypoxia due to acute bronchitis. Patient presents emergency department with dyspnea was found to be hypoxic. She was treated with breathing treatments, steroids and antibiotics. Imaging studies were negative for pneumonia. She likely has component of undiagnosed underlying COPD to long history of tobacco use. Morbid obesity/obesity hypoventilation likely playing a role as well. Her breathing improved rapidly and she was weaned off supplemental oxygen. This morning her respiratory symptoms were much improved. She was able to ambulate throughout the hallway without dyspnea or hypoxia and she was eager to return home. Recommend outpatient follow-up with Pulmonary for pulmonary function testing due to 80 pack year history of smoking. Smoking cessation was advised, she declined nicotine patch on discharge as she states she has tried in the past and has not been helpful. Time Attestation Discharge Coordination Time (in mins): 36 Quality: Safe Use of Opioids Does Pt have an Active Cancer Diagnosis on the Problem List?: No Quality: Stroke Does the patient have a stroke diagnosis?: No Physical Exam Vital Signs: Vital Signs: Last Vital Signs Temp 97.9 F 09/12/23 06:09 Pulse 70 09/12/23 06:09 Resp 18 09/12/23 06:09 BP 129/59 L 09/12/23 06:09 Pulse Ox 94 09/12/23 09:23 O2 Del Method Room Air 09/12/23 09:23 O2 Flow Rate 94 09/12/23 06:09 BMI result Body Mass Index 45.2 Const: General: cooperative, comfortable, no acute distress, alert and awake Nutritional Appearance: obese Orientation/consciousness: patient oriented x3 Resp: Other: no wheezing Effort & Inspection: normal respiratory effort, able to speak in complete sentences, no respiratory distress and no use of accessory muscles Neuro: General: patient oriented x3, moves all extremities and CN's II-XI intact bilaterally Extrem: General: Yes no pedal edema DS: Data Data Completed and Pending Labs on day of discharge: Laboratory Results - last 24 hr 09/11/23 09/11/23 09/11/23 11:10 11:58 15:46 WBC 8.5 RBC 5.33 Hgb 15.7 Hct 47.5 H MCV 89.1 MCH 29.5 MCHC 33.1 RDW 14.1 Plt Count 253 MPV 8.9 L Immature Gran % (Auto) 0.6 H Neut % (Auto) 79.6 H Lymph % (Auto) 15.5 L [place] % (Auto) 3.2 Eos % (Auto) 0.7 Baso % (Auto) 0.4 Lymph # (Auto) 1.3 [place] # (Auto) 0.3 Eos # (Auto) 0.1 Baso # (Auto) 0.0 Abs Immat Gran (auto) 0.05 H Absolute Neuts (auto) 6.8 Absolute Nucleated RBC 0.000 Nucleated RBC % (auto) 0.0 Sodium 141 Potassium 3.8 Chloride 106 Carbon Dioxide 27 Anion Gap 12 BUN 15 Creatinine 0.68 Estim Creat Clear Calc 114.7 Estimated GFR > 60 POC Glucose Random Glucose 142 H Calcium 9.7 D Magnesium 2.0 Total Bilirubin 0.4 AST 16 ALT 24 Alkaline Phosphatase 101 Troponin I High Sens < 2.7 < 2.7 B-Natriuretic Peptide 21 Total Protein 8.2 H Albumin 4.1 Influenza Type A (PCR) NEGATIVE Influenza Type B (PCR) NEGATIVE RSV RNA Qual (PCR) NEGATIVE SARS-CoV-2 RNA (RT-PCR) NEGATIVE 06/09/2809/12/23 09/12/23 22:10 05:58 07:49 WBC 8.7 RBC 5.21 Hgb 15.0 Hct 47.0 MCV 90.2 MCH 28.8 MCHC 31.9 RDW 14.0 Plt Count 275 MPV 9.4 Immature Gran % (Auto) 0.9 H Neut % (Auto) 82.9 H Lymph % (Auto) 14.5 L [place] % (Auto) 1.6 L Eos % (Auto) 0.0 Baso % (Auto) 0.1 Lymph # (Auto) 1.3 [place] # (Auto) 0.1 Eos # (Auto) 0.0 Baso # (Auto) 0.0 Abs Immat Gran (auto) 0.08 H Absolute Neuts (auto) 7.2 Absolute Nucleated RBC 0.000 Nucleated RBC % (auto) 0.0 Sodium 142 Potassium 4.4 Chloride 109 H Carbon Dioxide 24 Anion Gap 13 BUN 14 Creatinine 0.67 Estim Creat Clear Calc 116.4 Estimated GFR > 60 POC Glucose 251 H 126 H Random Glucose 151 H Calcium 9.7 Magnesium Total Bilirubin AST ALT Alkaline Phosphatase Troponin I High Sens B-Natriuretic Peptide Total Protein Albumin Influenza Type A (PCR) Influenza Type B (PCR) RSV RNA Qual (PCR) SARS-CoV-2 RNA (RT-PCR) Discharge Plan Discharge Anticipated Discharge Date/Time: 09/12/23 11:05 Patient Disposition: Home, Self-Care Discharge Diagnosis: Acute hypoxic respiratory failure due to acute bronchitis Referrals: Durga Dietz MD [Primary Care Provider] - 1 Week Remigio Stephen MD [Physician] - 1 Week Discharge Medications: New albuterol sulfate [Ventolin HFA] 90 mcg/actuation HFA aerosol inhaler 1 - 2 puff inhalation Q6H PRN (Reason: shortness of breath or wheezing) Qty: 6.7 0RF prednisone 20 mg tablet 40 mg PO DAILY 4 Days Qty: 8 0RF azithromycin 250 mg tablet 250 mg PO DAILY 4 Days Qty: 4 0RF Continued metformin 500 mg tablet extended release 24 hr 500 mg PO BID Qty: 180 1RF rosuvastatin 5 mg tablet 5 mg PO DAILY 30 Days Qty: 30 3RF Jardiance 25 mg tablet 25 mg PO QAM Qty: 30 2RF cholecalciferol (vitamin D3) 50 mcg (2,000 unit) capsule 50 mcg PO DAILY Women's 50 Plus Multivitamin 400 mcg-500 mg calcium-20 mcg tablet 1 tab PO .QD (DME) FreeStyle [place] 14 Day [place] Misc See Rx Instructions .Route Qty: 1 5RF Rx Instructions: As directed (DME) FreeStyle [place] 14 Day Sensor Kit See Rx Instructions .Route Qty: 1 12RF Rx Instructions: As directed (DME) CPAP supplies See Rx Instructions .Route .MEDSUPPLY Qty: 1 5RF Rx Instructions: As directed Discharge Orders: Discharge Order (Routine); Ordered 09/12/23 Ordered By: Ryanne Blackmon Activity on Discharge: As tolerated Stand Alone Forms: Patient Portal Discharge page Print Language: Cameroonian Care Plan Goals: See below Health Concerns: Acute respiratory failure with hypoxia due to Acute bronchitis Active tobacco use Plan of Treatment: Recommend to avoid tobacco products Complete course of antibiotics and steroids as prescribed Can use albuterol inhaler as needed for shortness of breath Call to schedule follow-up appointment with PCP Recommend outpatient follow-up with pulmonology for pulmonary function testing due to long history of tobacco use Assessment: See discharge summary Discharge Date/Time: 09/12/23 11:24
--- NOTE | 2023-09-12 11:32 | PC.NURSE ---
Discharge plan reviewed with patient who verbalized understanding
--- NOTE | 2023-09-12 14:36 | PHA.MEDREC ---
Pharmacy Consult ? Medication Reconciliation Pharmacy has completed the medication reconciliation.
== END 2023-09-12 11:24 | disposition home or self-care (01) | DRG 145 ==
LOC: HO.ED 17:07 → HO.EDOVER 19:15
PROVIDERS: Physician Assistant Medical; Admitting Provider Student in an Organized Health Care Education/Training Program; Emergency Provider Student in an Organized Health Care Education/Training Program; PCP Internal Medicine; Visit Provider Physician Assistant Medical
DX: J20.9 Acute bronchitis, unspecified (principal); J96.01 Acute respiratory failure with hypoxia; J44.0 Chronic obstructive pulmonary disease with (acute) lower respiratory infection; E11.9 Type 2 diabetes mellitus without complications; E66.2 Morbid (severe) obesity with alveolar hypoventilation; F17.210 Nicotine dependence, cigarettes, uncomplicated; Z68.42 Body mass index [BMI] 45.0-49.9, adult; E78.2 Mixed hyperlipidemia; Z71.6 Tobacco abuse counseling; Z20.822 Contact with and (suspected) exposure to COVID-19; Z79.84 Long term (current) use of oral hypoglycemic drugs; Z79.899 Other long term (current) drug therapy
CPT/HCPCS: 0241U; 36415; 71046; 80048; 80053; 82947; 83735; 83880; 84484; 85025; 87040; 93005; 94640; 99221; 99285; J0456; J0696; J1650; J2919

== ENCOUNTER → 2023-09-11 11:43 | Outpatient (BNV) | payer OTHER, SELFPAY | PROVIDERS: Admitting Provider Student in an Organized Health Care Education/Training Program; Emergency Provider Student in an Organized Health Care Education/Training Program; PCP Internal Medicine; Visit Provider Internal Medicine Cardiovascular Disease | DX: R06.02 Shortness of breath (principal) | CPT/HCPCS: 93010 ==

== ENCOUNTER → 2023-09-11 19:02 | Outpatient (BNV) | payer OTHER, SELFPAY | PROVIDERS: Admitting Provider Student in an Organized Health Care Education/Training Program; Emergency Provider Student in an Organized Health Care Education/Training Program; PCP Internal Medicine; Visit Provider Student in an Organized Health Care Education/Training Program | DX: J40 Bronchitis, not specified as acute or chronic (principal); J96.01 Acute respiratory failure with hypoxia | CPT/HCPCS: 99222; 99239 ==

== ENCOUNTER 2023-09-29 09:52 | Outpatient (AMB) | payer OTHER, SELFPAY ==
--- NOTE | 2023-09-28 19:59 | A.OFFVIS_ITS ---
Vital Signs 09/29/23 10:01 Height 5 ft 3 in Weight 246 lb 14.684 oz BMI 43.7 BP 108/60 Blood Pressure Location Lt brachial Position Sitting Pulse 84 Pulse Source Pulse Oximeter Pulse Oximetry (%) 93 Oxygen Delivery Method Room Air Intake Visit Reasons: Dyspnea/C ED Follow Up Allergies No Known Allergies [No Known Allergies*] Allergy (Verified 09/29/23 10:03) HPI HPI [place] [place] Follow Up: Details: Paula is a pleasant 57 year old female, current 1/2 ppd smoker with 80 pack year history, with underlying DMII, PRISCILLA on CPAP and endometrial cancer s/p hysterectomy 2022, no chemo/radiation. She was referred after recent admission to [facility] [place]10[place]09[place]11 for dyspnea and productive cough. In ED patient hypoxic down to 88%, resolving with 2L supplemental oxygen, treated with nebs, IV Solu-Medrol, Rocephin, and Zithromax, with minimal improvement in the ED and was admitted for likely COPD exacerbation, ultimately diagnosed with acute respiratory failure. No leukocytosis. Negative viral swabs. CXR negative for any acute findings. She was discharged on 09/11 without the need for supplemental oxygen as well as prednisone, zpak and albuterol. Smoking cessation was discussed but patient declined. Since discharge she reports significant improvement in symptoms however continues with dyspnea on moderate exertion and intermittent chest tightness. She continues to smoke and has no desire to quit. She denies any prior chest CT or being a part of a lung cancer screening program. Of note, patient with PRISCILLA on CPAP therapy ordered by PCP and receives supplies from [employer]. She denies any history of asthma and has no documented diagnosis of COPD. She denies any need for intubation related to respiratory distress. She has been using albuterol infrequently. She denies cough or chest tightness. She denies any occupational exposures. She reports father, smoker with COPD, otherwise no pertinent family history. [facility] Medical History Endometrial cancer Morbid obesity with BMI of 40.0-44.9, adult Onychomycosis Elevated LFTs Smoker Vitamin D deficiency Bilateral carpal tunnel syndrome Obstructive sleep apnea Pure hypercholesterolemia Diabetes mellitus Surgical History History of robot-assisted laparoscopic hysterectomy Hx of colonoscopy History of carpal tunnel release History of nasal surgery Family History Maternal Aunt Breast cancer Daughter Hyperthyroidism Di Duy's syndrome Mental health problem Social History Housing: Apartment Alcohol intake: never Patient Tobacco Use Status: Current everyday Tobacco user Tobacco use type: Cigarette Cigarette Packs Per Day: 0.5 Cigarettes Per Day: 10 Years Smoked: 38 e-Cigarette/Vaping Use: Never Used Second Hand Smoke Exposure: Yes service: No Current occupational status: employed 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, 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 Cognitive needs: No Hearing needs: No Vision needs: Yes (Glasses) Review of Systems Const Denies chills, Denies excessive sweating, Denies fever(s), Denies headache(s) and Denies night sweats Eyes Denies dry eyes, Denies irritation and Denies itchy eyes ENT Reports Normal hearing present, Denies headache(s), Denies nasal congestion, Denies nasal discharge, Denies post nasal drip and Denies sore throat Card Denies chest pain, Denies chest pain at rest, Denies chest pain with activity, Denies claudication, Denies leg edema, Reports dyspnea on exertion, Denies orthopnea and Denies paroxysmal nocturnal dyspnea Resp Denies chest congestion, Denies cough, Denies excessive phlegm production, Denies pain on inspiration, Denies pain with cough, Reports dyspnea on exertion, Denies stridor and Reports wheezing Musc Denies myalgias Neuro Reports Normal hearing present and Denies headache(s) Endo Denies excessive sweating Gregory/Lymph Denies lymphadenopathy Aller/Immun Denies itchy eyes, Denies seasonal rhinorrhea and Reports wheezing Physical Exam Vital Signs: Last Vital Signs Pulse 84 09/29/23 10:01 BP 108/60 09/29/23 10:01 Pulse Ox 93 09/29/23 10:01 Oxygen Delivery Method Room Air 09/29/23 10:01 BMI result Body Mass Index 43.7 Const General: cooperative, healthy appearing, comfortable, no acute distress, well developed and alert Nutritional Appearance: obese Orientation/consciousness: patient oriented x3 Limitations: no limitations HEENT Head: Yes normal to inspection, Yes normocephalic and Yes atraumatic Ears: hearing grossly normal bilaterally and external ears normal Eyes General: appearance normal, both eyes and all related structures Eyelids: Yes eyelids normal Sclerae: sclerae normal EOM: EOMs intact bilaterally Neck Neck: Yes normal visual inspection and Yes no lymphadenopathy Lymphatic: no lymphadenopathy noted Chest Chest palpation & inspection: normal inspection of the chest Resp Effort & Inspection: normal respiratory effort, able to speak in complete sentences, no audible wheezes, no cough, no stridor, not tachypneic, no tripod positioning and no use of accessory muscles Auscultation: diminished lung sounds Cardio Jugular venous distension: no JVD Rate: regular rate Rhythm: regular rhythm Skin Other: warm, dry General skin exam: no rashes or lesions noted Neuro General: patient oriented x3 Cranial nerves: Yes Normal hearing present Cognition (Neuro): normal cognition Gait exam (Neuro): Normal gait present Extrem General: Yes normal to inspection, Yes capillary refill normal, Yes no clubbing, cyanosis or edema and Yes no pedal edema Psych Appearance: grossly normal and well kempt Speech and movement: Normal speech and movement present and Clear speech present Affect: normal affect Attitude: cooperative Thought process: Normal thought process present Thought content: Normal thought content present Insight: Good insight present (Psych) Judgement: Good judgement present (Psych) Results Reviewed Results Reviewed: [address] [address] XRay Report Signed Patient: Paula Estrella MR#: [id number] : 1965 Acct:[id number] Age/Sex: 57 / F ADM Date: 09/11/23 Loc: .ED Attending Dr: Ordering Physician: Abdiriazk Lind DO Date of Service: 09/11/23 Procedure(s): XR chest 2V Accession Number(s): [id number] cc: Durga Dietz MD; Abdirizak Lind DO~ EXAMINATION: XR CHEST CLINICAL INFORMATION: SOB COMPARISON: Chest 02/09/2009 TECHNIQUE: 2 views of the chest were obtained. FINDINGS: The lungs are well expanded. There is prominence of the interstitial markings. There is slight streaky opacity in the lingula suggestive of minimal atelectasis. No focal consolidation, katerine interstitial pulmonary edema or pneumothorax. No pleural effusion. No significant abnormality is noted involving the heart, mediastinum, bony thorax or soft tissues. XR/XR chest 2V IMPRESSION: 1. No pneumonia. 2. Mild prominence of the interstitial markings. Dictated By: Deepali Arevalo MD Signed By: <Electronically signed by Deepali Arevalo MD in OV> 09/11/23 1402 DD/ 1210 TD/TT: Pie Maker: Assessment & Plan Assessment & Plan (1) COPD (chronic obstructive pulmonary disease): Code(s): J44.9 - Chronic obstructive pulmonary disease, unspecified Category: Medical (2) Dyspnea: Code(s): R06.00 - Dyspnea, unspecified Category: Medical (3) Smoker: Code(s): F17.200 - Nicotine dependence, unspecified, uncomplicated Category: Social Hx (4) Morbid obesity with BMI of 45.0-49.9, adult: Code(s): E66.01 - Morbid (severe) obesity due to excess calories; Z68.42 - Body mass index [BMI] 45.0-49.9, adult Category: Medical (5) Environmental allergies: Code(s): Z91.09 - Other allergy status, other than to drugs and biological substances Category: Medical Plan Paula presents after recent admission [place] [facility] for acute respiratory failure. She has no known diagnosis of COPD, however has an 80 pack year history and continues to smoke. Patient likely with COPD given smoking history, will send for PFT. Will also send for chest CT and RAST. At this time, she reports dyspnea on exertion and intermittent wheezing, will trial on Breo. Importance of oral hygiene reviewed. All questions were answered and patient is in agreement of plan. Will follow up in 8-10 weeks or sooner if needed. Orders: Orders Complete Blood Count Auto Diff Today Z91.09 - Other allergy status, other than to drugs and biological substances Resp Allergy Profile Region I Today Z91.09 - Other allergy status, other than to drugs and biological substances Other Ref Test - [facility] [place] Today Z91.09 - Other allergy status, other than to drugs and biological substances Immunoglobulin E Today Z91.09 - Other allergy status, other than to drugs and biological substances PFT pulmonary function test Today R06.00 - Dyspnea, unspecified CT chest wo IV con Today F17.200 - Nicotine dependence, unspecified, uncomplicated Medications: New fluticasone furoate-vilanterol 100-25 mcg/dose (Breo Ellipta) 1 inh inhalation DAILY 60 ea 3RF Coding Level of Care Code New Pt Level 4 (08274) Diagnoses COPD (chronic obstructive pulmonary disease) J44.9 Dyspnea R06.00 Smoker F17.200 Morbid obesity with BMI of 45.0-49.9, adult E66.01; Z68.42 Environmental allergies Z91.09
[2023-09-29 10:01] VITALS: BP 108/60; PULSE 84; O2SAT 93; BMI 43.7
== END 2023-09-29 10:38 | disposition home or self-care (01) ==
PROVIDERS: PCP Internal Medicine; Referring Provider Physician Assistant Medical; Visit Provider Nurse Practitioner Family
DX: J44.9 Chronic obstructive pulmonary disease, unspecified (principal); R06.00 Dyspnea, unspecified; F17.200 Nicotine dependence, unspecified, uncomplicated; E66.01 Morbid (severe) obesity due to excess calories; Z68.42 Body mass index [BMI] 45.0-49.9, adult; Z91.09 Other allergy status, other than to drugs and biological substances
CPT/HCPCS: 99204

== ENCOUNTER 2023-09-29 09:52 | Outpatient (REF) | payer OTHER, SELFPAY | END 2023-09-29 09:53 | disposition home or self-care (01) | LOC: HO.LAB 09:52 | PROVIDERS: PCP Internal Medicine; Referring Provider Physician Assistant Medical; Visit Provider Nurse Practitioner Family | DX: J44.9 Chronic obstructive pulmonary disease, unspecified (principal); R06.00 Dyspnea, unspecified; E66.01 Morbid (severe) obesity due to excess calories; Z68.42 Body mass index [BMI] 45.0-49.9, adult; Z91.09 Other allergy status, other than to drugs and biological substances; F17.200 Nicotine dependence, unspecified, uncomplicated | CPT/HCPCS: 99202 ==

== ENCOUNTER 2023-09-30 07:07 | Outpatient (REF) | payer OTHER, SELFPAY ==
[2023-09-30 07:28] LABS: MANUAL DIFF FLAG NO
[2023-09-30 07:42] LABS: Basophils Percent Auto 0.5 % (0-2); Eosinophils Absolute Auto 0.2 X10*3/uL (0.0-0.4); Hematocrit 45.9 % (37.0-47.0); Hemoglobin 14.8 g/dl (12.0-16.0); Imm Gran Abs Auto 0.04 X10*3/uL (0.00-0.03); Imm Gran Pct Auto 0.5 % (0.0-0.4); Lymphocytes Absolute Auto 3.1 X10*3/uL (1.2-4.9); Lymphocytes Percent Auto 38.7 % (20-40); Mean Corpuscular HGB Conc 32.2 g/dl (31.0-35.0); Mean Corpuscular Hemoglobin 28.9 pg (27.0-33.0); Mean Corpuscular Volume 89.6 fL (80.0-98.0); Mean Platelet Volume 9.5 fL (9.4-12.3); Monocytes Absolute Auto 0.4 X10*3/uL (0.1-1.2); Monocytes Percent Auto 4.9 % (2-11); Neutrophils Absolute Auto 4.3 x10*3/uL (2.0-8.3); Neutrophils Percent Auto 53.4 % (45-73); Platelet Count 263 X10*3/uL (160-400); Red Blood Count 5.12 X10*6/uL (4.20-5.50)
[2023-10-02 16:48] LABS: Class Alternaria alternata 0; Class Aspergillus fumigatus 0; Class Bermuda Grass 0; Class Birch 0; Class Cat Dander 0; Class Cladosporium herbarum 0; Class Cockroach 0; Class Common Ragweed 0; Class Cottonwood 0; Class Derm. pterony 0; Class Dermatophagoides farinae 0; Class Dog Dander 0; Class Elm 0; Class Maple Box Elder 0; Class Mountain Cedar 0; Class Mouse Urine Protein 0; Class Mugwort 0; Class Oak 0; Class Penicillium crysogenum 0; Class Rough Pigweed 0; Class Sheep Sorrel 0; Class Sycamore 0; Class Timothy Grass 0; Class Walnut Tree 0; Class White Ash 0; Class White Mulberry 0; D001 IgE D pteronyssinus <0.10 kU/L; D002 - IgE D farinae <0.10 kU/L; E001 - IgE Cat Dander <0.10 kU/L; E005 - IgE Dog Dander <0.10 kU/L; E072-IgE Mouse Urine <0.10 kU/L; G002 IgE Bermuda Grass <0.10 kU/L; G006 - IgE Timothy Grass <0.10 kU/L; I006-IgE Cockroach, German <0.10 kU/L; Immunoglobulin E 30 kU/L (<OR=114); M001 IgE Penicillium chrysogen <0.10 kU/L; M002 - IgE Cladosporium herbar <0.10 kU/L; M003 - IgE Aspergillus fumigat <0.10 kU/L; M006 - IgE Alternaria alternat <0.10 kU/L; T001 IgE Maple/Box Elder <0.10 kU/L; T003 IgE Common Silver Birch <0.10 kU/L; T006 - IgE Cedar, Mountain <0.10 kU/L; T007 - IgE Oak, White <0.10 kU/L; T008 IgE Elm, American <0.10 kU/L; T010 - IgE Walnut <0.10 kU/L; T011 - IgE Maple Leaf Sycamore <0.10 kU/L; T014 - IgE Cottonwood <0.10 kU/L; T015 - IgE Ash, White <0.10 kU/L; T070 - IgE White Mulberry <0.10 kU/L; W001 - IgE Ragweed, Short <0.10 kU/L; W006 - IgE Mugwort <0.10 kU/L; W014 IgE Pigweed, Common <0.10 kU/L; W018 IgE Sheep Sorrel <0.10 kU/L
== END 2023-09-30 07:08 | disposition home or self-care (01) ==
LOC: HO.LAB 07:07
PROVIDERS: PCP Internal Medicine; Visit Provider Nurse Practitioner Family
DX: Z91.09 Other allergy status, other than to drugs and biological substances (principal)
CPT/HCPCS: 36415; 82785; 85025; 86003; 86331

== ENCOUNTER 2023-09-30 15:14 | Outpatient (AMB) | payer OTHER, SELFPAY ==
--- NOTE | 2023-09-30 15:15 | MHC.PC.OV ---
Vital Signs 09/30/23 15:16 Height 5 ft 3 in Weight 249 lb 0.1 oz BMI 44.1 BP 138/82 Blood Pressure Location Lt brachial Position Sitting Pulse 84 Pulse Source Pulse Oximeter Pulse Oximetry (%) 96 Oxygen Delivery Method Room Air Intake Visit Reasons: [facility] ED F/U Intake Note: Patient is here to follow-up after a visit the emergency department at [facility] on 09/11/2023 Care Transitions Manager Required: No Allergies No Known Allergies [No Known Allergies*] Allergy (Verified 10/01/23 04:47) Medication List - Last Reconciled 10/01/23 by Durga Dietz MD albuterol sulfate 90 mcg/actuation (Ventolin HFA) 1 - 2 puffs inhalation Q6H PRN cholecalciferol (vitamin D3) 50 mcg PO DAILY [CPAP supplies As directed] empagliflozin (Jardiance) 25 mg PO QAM flash glucose scanning reader (FreeStyle Napoleon 14 Day [place]) As directed fluticasone furoate-vilanterol 100-25 mcg/dose (Breo Ellipta) 1 inh inhalation DAILY FreeStyle Napoleon 14 Day Sensor (flash glucose sensor) As directed NS metformin ER 500 mg PO BID zt-jho-cnxki-calcium carb-K1 400 mcg-500 mg calcium-20 mcg (Women's 50 Plus Multivitamin) 1 tab PO .QD rosuvastatin 5 mg PO DAILY 30 days Tobacco use date assessed: 08/11/23 Dental Screening Dental Screen Date: 08/11/23 HPI [facility] ED F/U HPI Details Patient comes in today for her HDF follow up visit She presented to the ER at [facility] about 3 weeks ago for increasing dyspnea - recalls that she was sick then with a cold for about a week at the time States that she was experiencing increased coughing with on and off wheezing and GARCIA that day when she went to the ER and that even mulltiple updrafts with Duoneb in the ER did not promptly relieve her symptoms initially - was reportedly found to be hypoxic with ambulation Chest x-rays done at the time were negative for pneumonia; labs done at the time were mostly unrevealing and her serum troponin level came back low She was treated subsequently with continuing updrafts, Abx and oral steroids as well as supplemental oxygen and her symptoms gradually improved after a few hours in the ER She was subsequently discharged home with Albuterol inhaler, Azithromycin and oral Prednisone with instructions to follow up with her PCP as well as with pulmonary for further evaluation of her breathing issues owing to her long-standing smoking history Patient states that her respiratory symptoms continued to gradually improve after her ER stay and she has not had any further significant flare ups since States that she only has to use her Albuterol inhaler a couple of times a week lately for relief of her chest congestion/tightness She was just seen by pulmonary for her initial consultation with them a couple of days ago and was started on Breo Ellipta, which patient states she will be picking up from her local pharmacy later today and will start using She is also being scheduled for chest CT as well as PFTs for further evaluation Patient states that she currently feels okay She denies any fever or sore throat; denies any headaches or dizziness Denies any chest pains, although she still has some occasional GARCIA No nausea/vomiting, no abdominal pain No change in bowel habits noted PFSH Medical History Endometrial cancer Morbid obesity with BMI of 40.0-44.9, adult Onychomycosis Elevated LFTs Smoker Vitamin D deficiency Bilateral carpal tunnel syndrome Obstructive sleep apnea Pure hypercholesterolemia Diabetes mellitus Surgical History History of robot-assisted laparoscopic hysterectomy Hx of colonoscopy History of carpal tunnel release History of nasal surgery Family History Maternal Aunt Breast cancer Daughter Hyperthyroidism Di Duy's syndrome Mental health problem Social History Housing: Apartment Alcohol intake: never Patient Tobacco Use Status: Current everyday Tobacco user Tobacco use type: Cigarette Cigarette Packs Per Day: 0.5 Cigarettes Per Day: 10 Years Smoked: 38 e-Cigarette/Vaping Use: Never Used Second Hand Smoke Exposure: Yes service: No Current occupational status: employed 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 1. Little interest or pleasure in doing things: not at all 2. Feeling down, depressed, or hopeless: not at all 3. Trouble falling or staying asleep, or sleeping too much: not at all 4. Feeling tired or having little energy: not at all 5. Poor appetite or overeating: not at all 6. Feeling bad about yourself - or that you are a failure or have let yourself or your family down: not at all 7. Trouble concentrating on things, such as reading the newspaper or watching television: not at all 8. Moving or speaking so slowly that other people could have noticed. Or the opposite - being so fidgety or restless that you have been moving around a lot more than usual: not at all 9. Thoughts that you would be better off or of hurting yourself in some way: not at all Total score: 0 Depression Screening Interpretation: Negative Depression Screening Done: Yes [id number] - PHQ-9 Billing: Yes Source: Developed by Drs. Gary Turcios, Brent Haji and colleagues, with an educational carolyn from [employer]. Thrive Questionnaire Date Thrive assessed: 08/11/23 AUDIT C Alcohol Use Questionnaire (AUDIT-C) 1. How often do you have a drink containing alcohol?: Never 3. How often do you have six or more drinks on one occasion?: Never Total Score: 0 Score Reviewed/Action Taken: Yes MERCEDES-7 AMB Questionnaire MERCEDES-7 Date MERCEDES - 7 assessed: 08/11/23 Feeling nervous, anxious, or on edge: 0 = Not at all Not being able to stop or control worryin = Not at all Worrying too much about different things: 0 = Not at all Trouble relaxin = Not at all Being so restless that it is hard to sit still: 0 = Not at all Becoming easily annoyed or irritable: 0 = Not at all Feeling afraid as if something awful might happen: 0 = Not at all Total MERCEDES-7 score (0-4 normal; 5-9 mild; 10-14 moderate; 15-21 severe): 0 Source: Developed by Drs. Gary Turcios, Brent Haji and colleagues, with an educational carolyn from [employer]. Review of Systems Const Denies chills, Reports fatigue (mild, at times), Denies fever(s) and Denies headache(s) ENT Denies dysphagia, Denies dizziness, Denies otalgia, Denies headache(s), Denies neck pain, Denies odynophagia and Denies sore throat Card Denies chest pain, Denies palpitations and Reports dyspnea on exertion (mild) Resp Denies chest congestion (but chest still feels slightly tight at times - relieved with Albuterol), Denies cough, Reports dyspnea on exertion (mild) and Reports wheezing (occasionally, mostly mild) GI Denies abdominal pain, Denies constipation, Denies dysphagia, Denies heartburn, Denies diarrhea, Denies nausea, Denies odynophagia and Denies vomiting Denies nocturia, Denies dysuria and Denies urinary urgency Musc Denies back pain, Denies arthralgias, Denies neck pain and Reports tingling (in both feet (on and off), and over the left thigh) Skin/Breast Denies rash Neuro Denies dizziness, Denies headache(s) and Reports tingling (in both feet (on and off), and over the left thigh) Endo Reports fatigue (mild, at times) and Denies palpitations Aller/Immun Reports wheezing (occasionally, mostly mild) Physical exam (Primary Care) Vital Signs: Last Vital Signs Pulse 84 09/30/23 15:16 BP 138/82 09/30/23 15:16 Pulse Ox 96 09/30/23 15:16 Oxygen Delivery Method Room Air 09/30/23 15:16 BMI result Body Mass Index 44.1 Tobacco/Smoking Status: Tobacco use Status Tobacco use date assessed 08/11/23 09/30/23 15:15 Patient Tobacco Use Status Current everyday Tobacco 09/30/23 15:15 Tobacco use type Cigarette 09/30/23 15:15 e-Cigarette/Vaping Use Never Used 09/30/23 15:15 Depression Screening Interpretation: Negative Thrive Assessment: Date of Thrive Assessment Date Thrive assessed 08/11/23 09/30/23 15:15 Const General: no acute distress and alert HENMT Throat: Yes posterior oropharynx normal and Yes tonsils normal (no TP congestion) Neck Neck: Yes no lymphadenopathy and Yes supple Thyroid: Thyroid normal Resp Auscultation: no rales, no rhonchi, no wheezes and diminished lung sounds bilateral Cardio Rate: regular rate Rhythm: regular rhythm Heart sounds: no murmurs GI Palpation (GI): Soft to palpation and nontender Auscultation: normal bowel sounds General: Yes no CVA tenderness Back/Spine/Pelvis Back: no CVA tenderness Skin Rashes: no rashes Extrem General: Yes no clubbing, cyanosis or edema Assessment and Plan Assessment & Plan (1) COPD (chronic obstructive pulmonary disease): Code(s): J44.9 - Chronic obstructive pulmonary disease, unspecified Qualifiers: COPD type: unspecified COPD Qualified Code(s): J44.9 - Chronic obstructive pulmonary disease, unspecified Plan: Have discussed with patient today that with her long-standing smoking history (she has been smoking since 21 y/o) and with her symptoms that prompted her recent ER visit, she likely has COPD She was seen by pulmonary for initial consultation a couple of days ago and is currently awaiting scheduling for chest CT and PFTs for further evaluation Is also being sent for allergy testing, which patient states she just had done earlier today She was started on Breo Ellipta 100-25 mcg 1 inhalation QD but she has not yet started on this - states that she will be picking up her Rx later today as she apparently had to wait for insurance approval for her Rx Continue Albuterol HFA 1 to 2 inhalations QID PRN as well Follow up with pulmonary as scheduled (2) Obstructive sleep apnea: Code(s): G47.33 - Obstructive sleep apnea (adult) (pediatric) Plan: Continue using CPAP device when sleeping at night - patient reports no issues or problems with her device (3) Diabetes mellitus: Code(s): E11.9 - Type 2 diabetes mellitus without complications Qualifiers: Diabetes mellitus type: type 2 Diabetes mellitus intermediate frame tender insulin use: without intermediate frame tender use Diabetes mellitus complication status: with hyperglycemia Qualified Code(s): E11.65 - Type 2 diabetes mellitus with hyperglycemia Plan: Her in-office HgbA1c was at 7.8% when checked last month (HgbA1c was at 6.7% back in December 2022) - goal is at least <7.0% Reinforced diabetic diet Continue Metformin ER 500 mg BID and Farxiga 10 mg QD (4) Pure hypercholesterolemia: Code(s): E78.00 - Pure hypercholesterolemia, unspecified Plan: Her LDL cholesterol was at or near goal at 88 mg/dl when last checked last fall (December 2022) Reinforced low cholesterol diet Continue Rosuvastatin 5 mg QD Will recheck her labs and fasting lipids in a few months as scheduled for follow up (5) Elevated LFTs: Code(s): R79.89 - Other specified abnormal findings of blood chemistry Plan: Her serum ALT was slightly elevated when she last had her labs done back in December 2022 but were back to normal on her labs done at the ER a few weeks ago - was likely due to hepatosteatosis Abdominal US done in June 2021 revealed (+) hepatomegaly and hepatic steatosis Patient is encouraged to continue working on her diet, exercise as tolerated and lose weight Will continue to monitor her LFTs regularly (6) Endometrial cancer: Comment: FIGO 1 endometrioid adenocarcinoma; S/P hysterectomy Code(s): C54.1 - Malignant neoplasm of endometrium Plan: She was diagnosed with grade 1 endometrioid adenocarcinoma during work up done for postmenopausal bleeding last year and eventually underwent robotic assisted total laparoscopic hysterectomy, BSA, SLN mapping and biopsy under general anesthesia with Dr. Raquel Overton on 01/14/23 She was reportedly advised that she does not need any additional treatments at this time Follow up with gynecologic oncology as scheduled (7) Vitamin D deficiency: Code(s): E55.9 - Vitamin D deficiency, unspecified Plan: Continue Vitamin D3 2000 units QD (8) Bilateral carpal tunnel syndrome: Code(s): G56.03 - Carpal tunnel syndrome, bilateral upper limbs Plan: S/P right carpal tunnel surgery in 2015 and left carpal tunnel release on 09/03/2017 - her wrist symptoms have improved significantly with surgery She had carpal tunnel surgery on her right wrist again on 09/23/2022 - states that her surgery went well and symptoms have improved with surgery Follow up with orthopedics as scheduled (9) Smoker: Code(s): F17.200 - Nicotine dependence, unspecified, uncomplicated Plan: Counseled again on smoking cessation - patient states that she is now working actively on trying to quit (10) Morbid obesity with BMI of 40.0-44.9, adult: Code(s): E66.01 - Morbid (severe) obesity due to excess calories; Z68.41 - Body mass index [BMI] 40.0-44.9, adult Plan: Reinforced diet/exercise as tolerated/lose weight Follow up with packing tractor machine operator at [facility] as scheduled Plan Follow up as scheduled in December 2023 Coding Level of Care Code Est Pt Level 4 (91094) Diagnoses Chronic obstructive pulmonary disease, unspecified COPD type J44.9 COPD type: unspecified COPD Obstructive sleep apnea G47.33 Type 2 diabetes mellitus with hyperglycemia, without long-term current use of insulin E11.65 Diabetes mellitus type: type 2 Diabetes mellitus senior living insulin use: without intermediate frame tender use Diabetes mellitus complication status: with hyperglycemia Pure hypercholesterolemia E78.00 Elevated LFTs R79.89 Endometrial cancer C54.1 Vitamin D deficiency E55.9 Bilateral carpal tunnel syndrome G56.03 Smoker F17.200 Morbid obesity with BMI of 40.0-44.9, adult E66.01; Z68.41
[2023-09-30 15:16] VITALS: BP 138/82; PULSE 84; O2SAT 96; BMI 44.1
== END 2023-09-30 17:11 | disposition home or self-care (01) ==
PROVIDERS: PCP Internal Medicine; Visit Provider Internal Medicine
DX: J44.9 Chronic obstructive pulmonary disease, unspecified (principal); E11.65 Type 2 diabetes mellitus with hyperglycemia; E66.01 Morbid (severe) obesity due to excess calories; Z68.41 Body mass index [BMI] 40.0-44.9, adult; C54.1 Malignant neoplasm of endometrium; G47.33 Obstructive sleep apnea (adult) (pediatric); E78.00 Pure hypercholesterolemia, unspecified; R79.89 Other specified abnormal findings of blood chemistry; E55.9 Vitamin D deficiency, unspecified; G56.03 Carpal tunnel syndrome, bilateral upper limbs; F17.200 Nicotine dependence, unspecified, uncomplicated
CPT/HCPCS: 99214

== ENCOUNTER 2023-10-07 09:10 | Outpatient (AMB) | payer OTHER, SELFPAY ==
--- NOTE | 2023-10-07 09:14 | MHC.OFFVIS ---
Vital Signs 10/07/23 09:18 Height 5 ft 3 in Weight 249 lb BMI 44.1 Handedness Right Intake Visit Reasons: OV - RT CTS, 09/23/22 Intake Note: Paula is a 57 year old right hand dominant female who presents today for a follow up visit s/p RT CTS, 09/23/22. Patient expresses about two months ago she stated dropping things due to her losing feelings in all her fingertips, occasionally it is her entire hand that goes numb and tingly. She works at a [employer] and says the hams could be about 10 pounds which causes sharp pain that radiates into her elbow. She has a bump on the ulnar aspect of her wrist that she is unsure if it is what is causing her pain. She utilizes a brace at night which offers relief sometimes. Allergies No Known Allergies [No Known Allergies*] Allergy (Verified 10/07/23 09:18) HPI HPI OV - RT CTS, 09/23/22: Details: Paula is a 57 year old right hand dominant Diabetic woman who is status post a REPEAT right carpal tunnel release with ri on 09/23/2022. She says that she had very good relief of her symptoms with normal sensation returning to her right hand. However, in the last 2 months she says she is starting to develop tingling into her fingertips perhaps 4 to 5 times a week. She is also concerned about whether the dorsal prominence of her right ulna and the occasional pains that she gets the travel up the dorsal aspect of her right forearm might be related to this issue.. She says she works at a [employer] & lifting heavier Hams occasionally cause this pain. She had her initial carpal tunnel release in ~2015. She is a smoker & has a Hx of COPD. She has a hx of uterine cancer & hysterectomy in 2022. She says she is doing well [facility] Medical History Endometrial cancer Morbid obesity with BMI of 40.0-44.9, adult Onychomycosis Elevated LFTs Smoker Vitamin D deficiency Bilateral carpal tunnel syndrome Obstructive sleep apnea Pure hypercholesterolemia Diabetes mellitus Surgical History History of robot-assisted laparoscopic hysterectomy Hx of colonoscopy History of carpal tunnel release History of nasal surgery Family History Maternal Aunt Breast cancer Daughter Hyperthyroidism Di Duy's syndrome Mental health problem Social History Housing: Apartment Alcohol intake: never Patient Tobacco Use Status: Current everyday Tobacco user Tobacco use type: Cigarette Cigarette Packs Per Day: 0.5 Cigarettes Per Day: 10 Years Smoked: 38 e-Cigarette/Vaping Use: Never Used Second Hand Smoke Exposure: Yes service: No Current occupational status: employed 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, 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 Cognitive needs: No Hearing needs: No Vision needs: Yes (Glasses) Review of Systems Const All systems reviewed & are unremarkable except as noted in HPI and below Physical Exam Vital Signs: BMI result Body Mass Index 44.1 Const General: no acute distress and alert Orientation/consciousness: patient oriented x3 Neuro General: patient oriented x3 Extrem Other: Evaluation of Right Upper Extremity: The patient is alert, oriented, and in no acute distress Neuro: Normal sensation to the tips of all digits bilaterally today in clinic No thenar or intrinsic wasting Good APB muscle belly firing and good finger cross Vascular: Cap refill brisk ROM: She can make a fist and extend all her digits No locking or catching Mild tenderness just distal tot he lateral epicondyle Mild Dorsal prominence to the distal ulna does not appear different to the contralateral side. This is non-tender. DRUJ stable on exam Psych Appearance: grossly normal Affect: normal affect Attitude: cooperative Assessment & Plan Assessment & Plan (1) Numbness and tingling in right hand: Code(s): R20.0 - Anesthesia of skin; R20.2 - Paresthesia of skin Category: Medical Plan Assessment & Plan: 1. Right hand tingling, S/P repeat carpal tunnel release DOS: ~2015 DOS: 09/21/22 repeat In all digits Symptoms intermittent throughout the week, ~4-5x on average This has been present for ~2 months, etiology unclear I ordered a new NCS to assess for peripheral nerve compression She will follow up when completed for review Scribed for Mariel Melo MD by Ochoa Sharif ophthalmic medical technologist, on 10/07/23 at 9:50 AM, EST. Orders: Orders NE nerve conduction velocity Today R20.0 - Anesthesia of skin, R20.2 - Paresthesia of skin Coding Level of Care Code Est Pt Level 4 (15493) Diagnoses Numbness and tingling in right hand R20.0; R20.2
[2023-10-07 09:18] VITALS: BMI 44.1
== END 2023-10-07 09:51 | disposition home or self-care (01) ==
PROVIDERS: PCP Internal Medicine; Visit Provider Orthopaedic Surgery
DX: R20.0 Anesthesia of skin (principal); R20.2 Paresthesia of skin
CPT/HCPCS: 99213

== ENCOUNTER → 2023-10-07 09:10 | Outpatient (BNVA) | payer OTHER, SELFPAY | PROVIDERS: PCP Internal Medicine; Visit Provider Orthopaedic Surgery | DX: R20.0 Anesthesia of skin (principal); R20.2 Paresthesia of skin | CPT/HCPCS: 99212 ==

== ENCOUNTER 2023-10-13 08:28 | Day surgery (SDC) | payer OTHER, SELFPAY ==
--- NOTE | 2023-10-13 08:35 | MHC.SHP ---
Pre-Procedural Eval Section A - 24 Hr Update-Section A only Date of Service: 10/13/23 Section B - Complete if H&P > 30 days Chief Complaint: Encounter for screening for malignant neoplasm of Relevant Family History (Specify if Yes): No Relevant Social History: Tobacco Use Present Medications: see Short Stay Collaborative assessment Medical History: Significant History (Morbid obesity with BMI of 40.0-44.9, adult Onychomycosis Left wrist pain Elevated LFTs Morbid obesity with BMI of 45.0-49.9, adult Smoker Vitamin D deficiency Bilateral carpal tunnel syndrome Obstructive sleep apnea Pure hypercholesterolemia Diabetes mellitus) History of Previous Operations: Relevant previous surgery/procedure and date(s) (Hx of colonoscopy History of carpal tunnel release History of nasal surgery) Allergies: Allergies Allergy/AdvReac Type Severity Reaction Status Date / Time No Known Allergies Allergy Verified 10/07/23 09:18 [No Known Allergies*] Review of Systems Sugical H&P ROS: Negative: Constitution, Cardiovascular, Respiratory and Gastrointestinal Exam Surgical H&P Exam: Normal: Heart, Normal: Lungs, Normal: Extremities and Normal: Abdomen Plan Diagnosis/Plan: Unchanged I have reviewed the history and physical and performed a pertinent physical examination on my patient. No changes have occurred unless specified. Time Spent With Patient Time: Total time managing care of this patient today ____ minutes.
[2023-10-13 08:37] VITALS: BP 109/66; PULSE 85; RESP 16; TEMP 36.4; O2SAT 92; BMI 43.5
[2023-10-13] MEDS: Lactated Ringers 1,000 ML 100 ML IVCONT (08:51)
[2023-10-13 08:57] LABS: Glucose, Whole Blood 147 mg/dL (60-115)
--- NOTE | 2023-10-13 09:19 | HO.ANESPROP2 ---
[facility] Active Problems Active Problems: All Active Problems Numbness and tingling in right hand (Acute) COPD (chronic obstructive pulmonary disease) (Acute) Environmental allergies (Acute) Dyspnea (Acute) Bronchitis (Acute) Right flank pain (Acute) Morbid obesity with BMI of 40.0-44.9, adult (Acute) Preop examination (Acute) Endometrial cancer (Acute) Postmenopausal bleeding (Acute) Hx of abscess of skin and subcutaneous tissue (Acute) Breast cancer screening (Acute) Cervical cancer screening (Acute) Abnormal uterine bleeding (AUB) (Acute) S/P carpal tunnel release (Acute) Carpal tunnel syndrome, right (Acute) Hepatomegaly (Acute) Colon cancer screening (Acute) Annual physical exam (Acute) Diabetic neuropathy (Acute) Onychomycosis (Acute) Abscess of skin (Acute) Left wrist pain (Acute) Morbid obesity with BMI of 45.0-49.9, adult (Acute) Smoker (Acute) Vitamin D deficiency (Acute) Bilateral carpal tunnel syndrome (Acute) Obstructive sleep apnea (Acute) Pure hypercholesterolemia (Acute) Diabetes mellitus (Acute) Past Medical History Medical History Endometrial cancer Morbid obesity with BMI of 40.0-44.9, adult Onychomycosis Elevated LFTs Smoker Vitamin D deficiency Bilateral carpal tunnel syndrome Obstructive sleep apnea Pure hypercholesterolemia Diabetes mellitus Family History Family History Maternal Aunt Breast cancer Daughter Hyperthyroidism Di Duy's syndrome Mental health problem Family history of problems with anesthesia: No Surgical History Surgical History History of robot-assisted laparoscopic hysterectomy Hx of colonoscopy History of carpal tunnel release History of nasal surgery History of Problems with Anesthesia: No Social History Social History Housing: Apartment Alcohol intake: never Patient Tobacco Use Status: Current everyday Tobacco user Tobacco use type: Cigarette Cigarette Packs Per Day: 0.5 Cigarettes Per Day: 10 Years Smoked: 38 e-Cigarette/Vaping Use: Never Used Second Hand Smoke Exposure: Yes Use of substances other than those prescribed or required for medical reasons: No Are you DNR?: No Advance Directives: No Advance Directives Information Provided: Yes service: No Current occupational status: employed 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, 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 Cognitive needs: No Hearing needs: No Vision needs: Yes (Glasses) Meds Allergies Allergy/AdvReac Type Severity Reaction Status Date / Time No Known Allergies Allergy Verified 10/07/23 09:18 [No Known Allergies*] Active Medications: Current Medications Lactated Ringer's (Lr) 1,000 mls @ 100 mls/hr IVCONT .Q10H ETHAN Last Admin: 10/13/23 08:51 Dose: 100 mls/hr Home Medications ?Medication ?Instructions ?Recorded ?Confirmed ?Last Taken ?Type cholecalciferol (vitamin D3) 50 50 mcg PO DAILY 02/04/20 10/01/23 09/11/23 06:00 History mcg (2,000 unit) capsule aabfcjqw-ymz-jmwlm ac 400 1 tab PO .QD 02/04/20 10/01/23 09/11/23 06:00 History mcg-calcium carb 500 mg-vit K1 20 mcg tablet (Women's 50 Plus Multivitamin) Exam Height,Weight and Vital Signs: Height 5 ft 3 in Weight 111.402 kg Last Vital Signs Temp 97.6 F 10/13/23 08:37 Pulse 85 10/13/23 08:37 Resp 16 10/13/23 08:37 BP 109/66 10/13/23 08:37 Pulse Ox 92 10/13/23 08:37 O2 Del Method Room Air 10/13/23 08:37 Pertinent Lab Results Pertinent Lab Results: Laboratory Tests 10/13/23 08:53 POC Glucose 147 H Airway Mallampati Class: IV TM Dist: >3cm Neck ROM: Full Loose/Missing/Broken Teeth: Yes and Upper Assessment and Plan Final Anesthetic Review Family History of Problems with Anesthesia: No History of Problems with Anesthesia: No NPO: Yes ASA Class: III Final Preanesthetic Review: No Changes in Pt Med Stat, Meds/Allgs Chart Reviewed, Consent Obtained/Reviewed and Anes Risks/Benef Reviewed Patient Risk: Intermediate Procedure Risk: Low Anesthetic Plan Anesthetic Plan: TIVA Disposition: Standard PACU
--- NOTE | 2023-10-13 10:00 | HO.OPN-COLON ---
Colonoscopy Operative Note Operative Note Date of Service: 10/13/23 Narrative: COLONOSCOPY TILL CECUM WITH SNARE POLYPECTOMY Pre-op diagnosis: Colon cancer screening. Post-op diagnosis:? Colon polyp, Diverticulosis, hemorrhoids Endoscopist:? Bettina Rush MD Anesthesia:?MAC Consent: Indications for the procedure and potential complications of bleeding, perforation, reaction to medications and missed diagnosis were discussed with the patient and informed consent was obtained. Instrument: Olympus PCF H 190 L variable stiffness pediatric colonoscope Monitoring: Vital signs and clinical assessment, intermittent blood pressure monitoring, continuous EKG monitoring, Pulse oximetry and Carbon Dioxide monitoring were done throughout the procedure. Please see anesthesia flowsheet. Colon withdrawl time was 22 minutes. Procedure: The patient was placed in the left lateral decubitis position and pre-procedure medications were administered. After a digital rectal examination of the ano-rectum, the video colonoscope was inserted into the rectum and advanced through the colon to the cecum. The colonoscope was slowly withdrawn in a retrograde panoramic fashion and the colon mucosa was carefully examined including a retroflexed view of the rectum. Findings and interventions are described below. Procedure Difficulty: Colon was long and there was some loop formation Findings: Terminal Ileum: Not evaluated Cecum: Normal Ascending Colon: Normal Transverse Colon: Normal Descending Colon: Normal Sigmoid Colon: A 10-12 mm sessile polyp at 55 cms - removed with a hot snare. Residual polyp was ablated with cautery using the snare tip. Moderate diverticulosis Rectum: Normal Ano-rectum: Moderate internal hemorrhoids Colon preparation: Good after copious irrigation. [place] Bowel Preparation Scale Right colon; 1 Transverse colon: 2 Left colon; 2 (0 = Unprepared colon segment with mucosa not seen due to solid stool that cannot be cleared. 1 = Portion of mucosa of the colon segment seen, but other areas of the colon segment not well seen due to staining, residual stool and/or opaque liquid. 2 = Minor amount of residual staining, small fragments of stool and/or opaque liquid, but mucosa of colon segment seen well. 3 = Entire mucosa of colon segment seen well with no residual staining, small fragments of stool or opaque liquid) Impression and Post Procedure Diagnosis: Colonoscopy Findings: One medium sized polyp was removed Moderate diverticulosis seen in the sigmoid colon Moderate hemorrhoids on retroflexed exam. Plan: Pt has a FU appointment on 10/27/23 with Darlene Walker NP Repeat Colonoscopy in 3-5 years if polyps are adenomatous and 10 year if polyps are hyperplastic. Above findings were reviewed with the patient and relevant handouts were given and the discharge area.
[2023-10-13 10:06] VITALS: BP 95/58; PULSE 82; RESP 17; TEMP 36.9; O2SAT 96
[2023-10-13 10:11] VITALS: BP 104/56; PULSE 85; RESP 18; O2SAT 95
[2023-10-13 10:16] VITALS: BP 102/60; PULSE 83; RESP 18; O2SAT 95
[2023-10-13 10:21] VITALS: BP 110/60; PULSE 76; RESP 18; TEMP 36.8; O2SAT 96
== END 2023-10-13 11:06 | disposition home or self-care (01) ==
PROVIDERS: PCP Internal Medicine; Visit Provider Internal Medicine Gastroenterology
PROC: 0DJD8ZZ Inspection of Lower Intestinal Tract, Via Natural or Artificial Opening Endoscopic (ICD-10-PCS; CPT 45378; principal; 2023-10-13 09:20)
DX: Z12.11 Encounter for screening for malignant neoplasm of colon (principal); D12.5 Benign neoplasm of sigmoid colon; K57.30 Diverticulosis of large intestine without perforation or abscess without bleeding; K64.8 Other hemorrhoids; K59.01 Slow transit constipation; K76.0 Fatty (change of) liver, not elsewhere classified; E55.9 Vitamin D deficiency, unspecified; E78.00 Pure hypercholesterolemia, unspecified; E66.01 Morbid (severe) obesity due to excess calories; Z68.41 Body mass index [BMI] 40.0-44.9, adult; G47.33 Obstructive sleep apnea (adult) (pediatric); E11.9 Type 2 diabetes mellitus without complications; R79.89 Other specified abnormal findings of blood chemistry; Z79.899 Other long term (current) drug therapy; Z99.89 Dependence on other enabling machines and devices; F17.210 Nicotine dependence, cigarettes, uncomplicated
CPT/HCPCS: 45385; 82947; 88305; J2704

== ENCOUNTER → 2023-10-13 08:28 | Outpatient (BNV) | payer OTHER, SELFPAY | PROVIDERS: PCP Internal Medicine; Visit Provider Internal Medicine Gastroenterology | DX: Z12.11 Encounter for screening for malignant neoplasm of colon (principal); D12.5 Benign neoplasm of sigmoid colon; K57.30 Diverticulosis of large intestine without perforation or abscess without bleeding; K64.8 Other hemorrhoids | CPT/HCPCS: 45385 ==

== ENCOUNTER 2023-10-22 15:14 | Outpatient (REF) | payer OTHER, SELFPAY ==
--- NOTE | 2023-10-22 15:19 | EMG_ITS ---
Chief complaint: EMG done 08/14/[address] Chavarria showed right acute on chronic moderate Carpal Tunnel Syndrome; with prolonged latencies on both median motor and sensory nerves; needle EMG on right APB showed polyphasia and reduced recruitment. Patient underwent 2nd carpal tunnel release 09/23/2022. Symptoms resolved after surgery. Started having tingling and pain again few months ago. She is diabetic. Reason for referral: Evaluate for recurrent Carpal Tunnel Syndrome Referred by: Dr. Melo Procedure done: Right upper extremity NCS/EMG Precautions and/or limitations: None The limb temperature was monitored continuously and remained between 32-36 degrees C during the performance of the NCS. Nerve Conduction Studies Anti Sensory Summary Table ?Stim Site NR Onset (ms) Norm Onset (ms) Peak (ms) Norm Peak (ms) O-P Amp (?V) Norm O-P Amp Site1 Site2 Delta-0 (ms) Dist (cm) Bud (m/s) Norm Bud (m/s) Right Median Anti Sensory (2nd Digit) Wrist ? 3.1 3.8 <3.6 27.4 >10 Wrist 2nd Digit 3.1 14.0 45 Right Radial Anti Sensory (Thumb) Forearm ? 1.4 1.8 <3.1 9.0 Forearm Thumb 1.4 0.0 Right Ulnar Anti Sensory (5th Digit) Wrist ? 0.9 3.0 <3.7 15.9 >15.0 Wrist 5th Digit 0.9 14.0 156 Motor Summary Table ?Stim Site NR Onset (ms) Norm Onset (ms) O-P Amp (mV) Norm O-P Amp iAmp (mV) Amp (1st) (%) Site1 Site2 Delta-0 (ms) Dist (cm) Bud (m/s) Norm Bud (m/s) Right Median Motor (Abd Poll Brev) Wrist ? 4.5 <3.9 9.4 >4.5 10.9 100.0 Elbow Wrist 3.5 18.5 53 >45 Elbow ? 8.0 8.6 10.0 91.5 Right Ulnar Motor (Abd Dig Minimi) Wrist ? 2.6 <3.0 10.2 >5 13.4 100.0 B Elbow Wrist 2.9 17.5 60 >45 B Elbow ? 5.5 9.8 13.1 96.1 A Elbow B Elbow 1.5 10.0 67 >45 A Elbow ? 7.0 9.3 12.7 91.2 EMG ?Side Muscle Nerve Root Ins Act Fibs Psw Amp Dur Poly Recrt Int Pat Comment Right 1stDorInt Ulnar C8-T1 Nml Nml Nml Nml Nml 0 Nml Complete Right FlexCarRad Median C6-7 Nml Nml Nml Nml Nml 0 Nml Complete Right Biceps Musculocut C5-6 Nml Nml Nml Nml Nml 0 Nml Complete Right Triceps Radial C6-7-8 Nml Nml Nml Nml Nml 0 Nml Complete Right Deltoid Axillary C5-6 Nml Nml Nml Nml Nml 0 Nml Complete Right Abd Poll Brev Median C8-T1 Incr 1+ 1+ Nml Nml 0 Nml Complete FINDINGS: Right median motor nerve showed prolonged distal latency, normal amplitude and normal conduction velocity. Right median sensory nerve showed prolonged peak latency. All other nerves tested were within normal. Concentric needle EMG was performed in selected muscles of the right upper extremity. Study did not reveal signs of electric abnormalities as shown in the table above. Right APB showed increased insertional activity, with very small PSWs and fibrillations. IMPRESSION: 1. This is an abnormal study. 2. Continues to show electrodiagnostic evidence for right moderate-severe median neuropathy at the wrist, consistent with carpal tunnel syndrome. 3. There is no electrodiagnostic evidence for ulnar neuropathy, brachial plexopathy, or cervical radiculopathy. CLINICAL COMMENT: Small PSWs and fibrillations suggest subacute/chronic denervation. Discussed with patient that prolonged latencies seen on nerve conduction does not return to normal quickly despite surgery. I am not able to tell if Carpal Tunnel Syndrome findings above is a new issue vs chronic ongoing. Thank you for your kind referral. Shani Howard MD, MICHELLE Board Certified, [place] Board of Physical Medicine and Rehabilitation (ABPMR) Board Certified, [place] Board of Electrodiagnostic Medicine (ABEM) [place] [id number] [facility]
== END 2023-10-22 15:15 | disposition home or self-care (01) ==
LOC: HO.NEURO 15:14
PROVIDERS: Visit Provider Orthopaedic Surgery
DX: R20.0 Anesthesia of skin (principal); R20.2 Paresthesia of skin
CPT/HCPCS: 95886; 95909

== ENCOUNTER → 2023-10-22 15:19 | Outpatient (BNV) | payer OTHER, SELFPAY | PROVIDERS: Visit Provider Physical Medicine & Rehabilitation | DX: G56.01 Carpal tunnel syndrome, right upper limb (principal) | CPT/HCPCS: 95886; 95909 ==

== ENCOUNTER 2023-10-27 07:51 | Outpatient (AMB) | payer OTHER, SELFPAY ==
--- NOTE | 2023-10-27 08:04 | MHC.OFFVIS ---
Vital Signs 10/27/23 08:08 Height 5 ft 3 in Weight 246 lb 14.684 oz BMI 43.7 BP 108/54 L Blood Pressure Location Rt brachial Position Sitting Pulse 84 Pulse Source Pulse Oximeter Pulse Oximetry (%) 92 Oxygen Delivery Method Room Air Intake Visit Reasons: S/P [place]; Dr. Rush Intake Note: Paula presents in office today for a scheduled post op FUV CC; Pt reports that they have remained stable since their procedure. No new concerns or sx at this time. Pt reports that they are here to discuss the results of the s/p only. 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 Rush: Details: LAST VISIT Colon cancer screening Elevated LFTs Hepatic steatosis Constipation Plan Patient had suboptimal prep last procedure. We will do 7 days of Dulcolax and split MiraLax plaque with Dulcolax tabs day before procedure. The importance of clear liquid diet and good bowel prep stressed to patient. We will book procedure today and will see her after the procedure. Patient has sleep apnea and using CPAP. Not on any anticoagulation medication. Patient denies any cardiac or respiratory symptoms. I will see her after the procedure, sooner on as needed basis. Patient is agreeable to this plan and verbalizes understanding of instructions. She was given the opportunity to ask questions and all questions answered. ? Thank you for allowing me to participate in her care Medications New bisacodyl (Dulcolax (bisacodyl)) Start taking 2 tablet every night 7 days before the procedure and 1 day before procedure take 4 tablets at noon time followed by MiraLax prep 10 mg (2 x 5 mg) PO BEDTIME 30 tabs 0RF Z12.11 polyethylene glycol 3350 (Miralax) As directed by gastroenterology department at [facility] 238 grams PO ONCE 238 grams 0RF Z12.11 COLONOSCOPY Findings: Terminal Ileum: Not evaluated Cecum: Normal Ascending Colon: Normal Transverse Colon: Normal Descending Colon: Normal Sigmoid Colon: A 10-12 mm sessile polyp at 55 cms - removed with a hot snare. Residual polyp was ablated with cautery using the snare tip. Moderate diverticulosis Rectum: Normal Ano-rectum: Moderate internal hemorrhoids Colon preparation: Good after copious irrigation. [place] Bowel Preparation Scale Right colon; 1 Transverse colon: 2 Left colon; 2 (0 = Unprepared colon segment with mucosa not seen due to solid stool that cannot be cleared. 1 = Portion of mucosa of the colon segment seen, but other areas of the colon segment not well seen due to staining, residual stool and/or opaque liquid. 2 = Minor amount of residual staining, small fragments of stool and/or opaque liquid, but mucosa of colon segment seen well. 3 = Entire mucosa of colon segment seen well with no residual staining, small fragments of stool or opaque liquid) Impression and Post Procedure Diagnosis: Colonoscopy Findings: One medium sized polyp was removed Moderate diverticulosis seen in the sigmoid colon Moderate hemorrhoids on retroflexed exam. Plan: Repeat Colonoscopy in 3-5 years if polyps are adenomatous and 10 year if polyps are hyperplastic. PATHOLOGY Diagnosis Colon, sigmoid, polypectomy: Tubular adenoma; negative for high-grade dysplasia or carcinoma TODAY'S VISIT: Patient is here today for follow-up and to discuss colonoscopy results. Patient denies any ill effects from the prep, anesthesia or procedure itself. Patient reports to be feeling well. One tubular adenoma found in sigmoid colon without high-grade dysplasia or carcinoma. Moderate diverticulosis in sigmoid colon and internal hemorrhoids found. Denies melena, hematochezia. Patient reports that bowels without any issues. Denies any dyspepsia, dysphagia or odynophagia. Increased on liver echogenicity on last ultrasound in 2022. Liver enzymes normal in September. Patient denies in the abdominal pain or discomfort. Denies any GI concerning symptoms. [facility] Medical History (Updated 10/27/23 @ 08:34 by Cely Walker MANAGER [employer]CE [employer]OVEMENT-) Tubular adenoma of colon Diverticulosis Endometrial cancer Morbid obesity with BMI of 40.0-44.9, adult Onychomycosis Elevated LFTs Smoker Vitamin D deficiency Bilateral carpal tunnel syndrome Obstructive sleep apnea Pure hypercholesterolemia Diabetes mellitus Surgical History History of robot-assisted laparoscopic hysterectomy Hx of colonoscopy History of carpal tunnel release History of nasal surgery Family History Maternal Aunt Breast cancer Daughter Hyperthyroidism Di Duy's syndrome Mental health problem Social History Housing: Apartment Alcohol intake: never Patient Tobacco Use Status: Current everyday Tobacco user Tobacco use type: Cigarette Cigarette Packs Per Day: 0.5 Cigarettes Per Day: 10 Years Smoked: 38 e-Cigarette/Vaping Use: Never Used Second Hand Smoke Exposure: Yes service: No Current occupational status: employed 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, 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 Cognitive needs: No Hearing needs: No Vision needs: Yes (Glasses) Review of Systems Const Denies weight gain and Denies weight loss ENT Reports no additional complaints, Denies dysphagia and Denies odynophagia Card Reports no additional complaints Resp Reports no additional complaints GI Denies abdominal pain, Denies belching, Denies melena, Denies bloating, Denies change in bowel habits, Denies dysphagia, Denies excessive flatus, Denies dyspepsia, Denies heartburn, Denies diarrhea, Denies loose stools, Denies nausea, Denies odynophagia and Denies vomiting Musc Reports no additional complaints Neuro Reports no additional complaints Psych Reports no additional complaints Endo Reports no additional complaints Physical Exam Const General: healthy appearing, no acute distress and well developed Nutritional Appearance: obese Orientation/consciousness: patient oriented x3 Resp Effort & Inspection: normal respiratory effort, able to speak in complete sentences, no tracheal deviation and symmetric chest movement Auscultation: clear to auscultation bilaterally Cardio Rate: regular rate GI Inspection: Yes normal to inspection, No distended and Yes obesity Palpation (GI): Soft to palpation, not firm, nontender and No hepatosplenomegaly present Auscultation: normal bowel sounds General: Yes no CVA tenderness Back/Spine/Pelvis Back: no CVA tenderness Skin General skin exam: elasticity normal, turgor normal and dry skin Neuro General: patient oriented x3 Psych Appearance: grossly normal Mental Status: mental status grossly normal Assessment & Plan Assessment & Plan (1) Diverticulosis: Code(s): K57.90 - Diverticulosis of intestine, part unspecified, without perforation or abscess without bleeding Category: Medical (2) Status post colonoscopy: Code(s): Z98.890 - Other specified postprocedural states (3) Internal hemorrhoids without complication: Code(s): K64.8 - Other hemorrhoids (4) Tubular adenoma of colon: Code(s): D12.6 - Benign neoplasm of colon, unspecified Category: Medical Plan Colonoscopy in 3 years, sooner if clinically necessary. Patient will have ultrasound repeated. Last she ultrasound show buttock echogenicity. Will check ultrasound with elastography. Last liver enzymes normal. Diverticulosis and internal hemorrhoids found. Patient was encouraged to increase fiber in her diet, probiotics. Patient will return in 6 months. She will call our office if she will have any GI concerning symptoms. She is agreeable to this plan and verbalizes understanding of instructions. She was given the opportunity to ask questions and all questions answered thank you for allowing me to participate in her care Orders: Orders US abdomen hamilton w elastography Today R74.01 - Elevation of levels of liver transaminase levels Coding Level of Care Code Est Pt Level 3 (15603) Diagnoses Diverticulosis K57.90 Status post colonoscopy Z98.890 Internal hemorrhoids without complication K64.8 Tubular adenoma of colon D12.6 Time Spent (min) 30 Comment 20 minutes spent with patient and additional 10 minutes spent reviewing her records
[2023-10-27 08:08] VITALS: BP 108/54; PULSE 84; O2SAT 92; BMI 43.7
== END 2023-10-27 08:28 | disposition home or self-care (01) ==
PROVIDERS: PCP Internal Medicine; Visit Provider Nurse Practitioner Family
DX: K57.90 Diverticulosis of intestine, part unspecified, without perforation or abscess without bleeding (principal); Z98.890 Other specified postprocedural states; K64.8 Other hemorrhoids; D12.6 Benign neoplasm of colon, unspecified
CPT/HCPCS: 99213

== ENCOUNTER → 2023-10-27 07:51 | Outpatient (BNVA) | payer OTHER, SELFPAY | PROVIDERS: PCP Internal Medicine; Visit Provider Nurse Practitioner Family | DX: K57.90 Diverticulosis of intestine, part unspecified, without perforation or abscess without bleeding (principal); K64.8 Other hemorrhoids; D12.6 Benign neoplasm of colon, unspecified; R74.01 Elevation of levels of liver transaminase levels; Z98.890 Other specified postprocedural states | CPT/HCPCS: 99212 ==

== ENCOUNTER 2023-11-10 08:09 | Outpatient (REF) | payer OTHER, SELFPAY ==
--- NOTE | ~2023-11-10 | US_ITS ---
EXAMINATION: US ABDOMEN LIMITED WITH LIVER ELASTOGRAPHY CLINICAL INFORMATION: Elevated transaminase levels. COMPARISON: None available. TECHNIQUE: Real-time imaging of the abdominal viscera. Noninvasive ultrasound liver fibrosis assessment is performed using Rubina ElastPQ point quantification shear wave elastography (pSWE) with a 5 MHz transducer. Multiple elastography samples are obtained. FINDINGS: PANCREAS: Limited. The visualized pancreatic head and body are normal in appearance. The remainder of the pancreas is obscured from visualization by the overlying bowel gas. LIVER: The liver demonstrates normal contour and increased echogenicity, 1))). No focal lesion or intrahepatic biliary duct dilatation. The right lobe measures 23.7 cm in length. The left lobe measures 12.8 cm in length. There is hepatopedal portal venous flow. Shear wave elastography provides a median stiffness of 1.31 m/s (reference: normal median stiffness is 0.81 - 1.22 m/s). The IQR/median stiffness to assess sampling precision is 0.15 (reference: optimal IQR/median stiffness is under 0.3). GALLBLADDER: Normal. The gallbladder is physiologically distended without evidence of stones, sludge, polyps, wall thickening or pericholecystic fluid. COMMON BILE DUCT: Normal in caliber measuring 0.3 cm in diameter. RIGHT KIDNEY: Normal. No hydronephrosis. No renal calculi or focal parenchymal lesions. The kidney measures 12.7 cm in maximum dimension. FREE FLUID: None. US/US abdomen hamilton w elastography IMPRESSION: 1. There is hepatomegaly. 2. There is generalized increase in hepatic echotexture, consistent with fatty infiltration or hepatocellular disease. Please correlate clinically. Characteristic pericholecystic sparing favors fatty infiltration. No focal hepatic mass or intrahepatic biliary dilatation is seen. 3. Elastography: Liver elastography measurements are consistent with a minimal risk for clinically significant liver fibrosis (METAVIR Stage F0-F1). Electronically signed by: Brooks Medrano MD 12/01/2023 04:11 PM EDT
--- NOTE | ~2023-11-10 | CT_ITS ---
EXAMINATION: CT CHEST WITHOUT CONTRAST CLINICAL INFORMATION: Nicotine dependence COMPARISON: None available. TECHNIQUE: Multidetector volumetric CT imaging of the chest was done. Axial MIP volume rendering provided. Sagittal and coronal reformatted images were obtained. This CT examination was performed using dose optimization techniques as appropriate, variously including the following: *Automated exposure control *Adjustment of mA and/or kV according to patient size (this includes techniques or standardized protocols for targeted exams where dose is matched to indication/reason for exam; i.e. 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 There is 0.3 cm nodule seen in the right middle lobe, seen on image 291 series 5. There are mild changes of centrilobular emphysema. MEDIASTINUM: The mediastinum is normal. CORONARY ARTERY CALCIFICATION: Mild PLEURA: There is no pleural effusion. No pleural mass or thickening. AXILLA: No lymphadenopathy. UPPER ABDOMEN: Liver is of low attenuation due to hepatic steatosis. Visualized pancreas, spleen, adrenal glands, gallbladder are unremarkable. OSSEOUS STRUCTURES: There is kyphotic deformity of the thoracic spine with changes so DISH CT/CT chest wo IV con IMPRESSION: 1. Mild changes of centrilobular emphysema. 2. 0.3 cm nodule in the right middle lobe. 3. Granulomatous disease with calcified granulomas in the right lung 4. Mild coronary artery calcifications. 5. Hepatic steatosis. Fleischner guidelines were followed. Electronically signed by: Darren Lind MD 11/28/2023 10:52 AM EDT
== END 2023-11-10 08:10 | disposition home or self-care (01) ==
LOC: HO.US 08:09
PROVIDERS: PCP Internal Medicine; Visit Provider Physician Assistant Surgical
DX: R74.01 Elevation of levels of liver transaminase levels (principal); F17.200 Nicotine dependence, unspecified, uncomplicated
CPT/HCPCS: 71250; 76705; 76981

== ENCOUNTER 2023-12-01 09:49 | Outpatient (AMB) | payer OTHER, SELFPAY ==
--- NOTE | 2023-12-01 10:23 | A.OFFVIS_ITS ---
Vital Signs 12/01/23 10:24 Height 5 ft 3 in Weight 249 lb 1.957 oz BMI 44.1 BP 108/60 Blood Pressure Location Lt brachial Position Sitting Pulse 75 Pulse Source Pulse Oximeter Pulse Oximetry (%) 95 Oxygen Delivery Method Room Air Intake Visit Reasons: Dyspnea Allergies No Known Allergies [No Known Allergies*] Allergy (Verified 12/02/23 16:00) HPI HPI Dyspnea: Details: Paula is a pleasant 57 year old female, current 1/2 ppd smoker with 80 pack year history, with underlying DMII, PRISCILLA on CPAP and endometrial cancer s/p hysterectomy 2022, no chemo/radiation. She had recent admission to [facility] 09/10-09/11 for acute respiratory failure with hypoxia secondary to COPD exacerbation. At the last visit, she was started on Breo with good control of respiratory symptoms. She denies cough, dyspnea or wheezing. Occasionally will have chest tightness which resolves with albuterol MDI which she uses infrequently. Today she presents to review chest CT results. [facility] Medical History (Updated 12/03/23 @ 08:39 by Nahed Shukla NP) Tubular adenoma of colon Diverticulosis Endometrial cancer Morbid obesity with BMI of 40.0-44.9, adult Onychomycosis Elevated LFTs Smoker Vitamin D deficiency Bilateral carpal tunnel syndrome Obstructive sleep apnea Pure hypercholesterolemia Diabetes mellitus Surgical History History of robot-assisted laparoscopic hysterectomy Hx of colonoscopy History of carpal tunnel release History of nasal surgery Family History Maternal Aunt Breast cancer Daughter Hyperthyroidism Di Duy's syndrome Mental health problem Social History Housing: Apartment Alcohol intake: never Patient Tobacco Use Status: Current everyday Tobacco user Tobacco use type: Cigarette Cigarette Packs Per Day: 0.5 Cigarettes Per Day: 10 Years Smoked: 38 e-Cigarette/Vaping Use: Never Used Second Hand Smoke Exposure: Yes service: No Current occupational status: employed 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, 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 Cognitive needs: No Hearing needs: No Vision needs: Yes (Glasses) Review of Systems Const Denies chills, Denies excessive sweating, Denies fever(s), Denies headache(s) and Denies night sweats Eyes Denies dry eyes, Denies irritation and Denies itchy eyes ENT Reports Normal hearing present, Denies headache(s), Denies nasal congestion, Denies nasal discharge, Denies post nasal drip and Denies sore throat Card Denies chest pain, Denies chest pain at rest, Denies chest pain with activity, Denies claudication, Denies leg edema, Reports dyspnea on exertion, Denies orthopnea and Denies paroxysmal nocturnal dyspnea Resp Denies chest congestion, Denies cough, Denies excessive phlegm production, Denies pain on inspiration, Denies pain with cough, Reports dyspnea on exertion and Denies stridor Musc Denies myalgias Neuro Reports Normal hearing present and Denies headache(s) Endo Denies excessive sweating Gregory/Lymph Denies lymphadenopathy Aller/Immun Denies itchy eyes and Denies seasonal rhinorrhea Physical Exam Vital Signs: Last Vital Signs Pulse 75 12/01/23 10:24 BP 108/60 12/01/23 10:24 Pulse Ox 95 12/01/23 10:24 Oxygen Delivery Method Room Air 12/01/23 10:24 BMI result Body Mass Index 44.1 Const General: cooperative, healthy appearing, comfortable, no acute distress, well developed and alert Nutritional Appearance: obese Orientation/consciousness: patient oriented x3 Limitations: no limitations HEENT Head: Yes normal to inspection, Yes normocephalic and Yes atraumatic Ears: hearing grossly normal bilaterally and external ears normal Eyes General: appearance normal, both eyes and all related structures Eyelids: Yes eyelids normal Sclerae: sclerae normal EOM: EOMs intact bilaterally Neck Neck: Yes normal visual inspection and Yes no lymphadenopathy Lymphatic: no lymphadenopathy noted Chest Chest palpation & inspection: normal inspection of the chest Resp Effort & Inspection: normal respiratory effort, able to speak in complete sentences, no audible wheezes, no cough, no stridor, not tachypneic, no tripod positioning and no use of accessory muscles Auscultation: diminished lung sounds Cardio Jugular venous distension: no JVD Rate: regular rate Rhythm: regular rhythm Skin Other: warm, dry General skin exam: no rashes or lesions noted Neuro General: patient oriented x3 Cranial nerves: Yes Normal hearing present Cognition (Neuro): normal cognition Gait exam (Neuro): Normal gait present Extrem General: Yes normal to inspection, Yes capillary refill normal, Yes no clubbing, cyanosis or edema and Yes no pedal edema Psych Appearance: grossly normal and well kempt Speech and movement: Normal speech and movement present and Clear speech present Affect: normal affect Attitude: cooperative Thought process: Normal thought process present Thought content: Normal thought content present Insight: Good insight present (Psych) Judgement: Good judgement present (Psych) Results Reviewed Results Reviewed: [address] [address] [address] Scan Report Signed Patient: Paula Estrella MR#: [id number] : 1965 Acct:[id number] Age/Sex: 58 / F ADM Date: 11/10/23 Loc: . Attending Dr: Shayy PERSON Ordering Physician: Nahed Shukla NP Date of Service: 11/10/23 Procedure(s): CT chest wo IV con Accession Number(s): [id number] cc: Durga Dietz MD; Nahed Shukla NP~ EXAMINATION: CT CHEST WITHOUT CONTRAST CLINICAL INFORMATION: Nicotine dependence COMPARISON: None available. TECHNIQUE: Multidetector volumetric CT imaging of the chest was done. Axial MIP volume rendering provided. Sagittal and coronal reformatted images were obtained. This CT examination was performed using dose optimization techniques as appropriate, variously including the following: *Automated exposure control *Adjustment of mA and/or kV according to patient size (this includes techniques or standardized protocols for targeted exams where dose is matched to indication/reason for exam; i.e. extremities or head) *Use of iterative reconstruction technique DLP: 238 mGy-cm FINDINGS: TAX COLLECTOR: Unremarkable LUNGS: There are a few calcified granulomas seen in subpleural in the right lung too small to characterize. There is 0.3 cm nodule seen in the right middle lobe, seen on image 291 series 5. There are mild changes of centrilobular emphysema. MEDIASTINUM: The mediastinum is normal. CORONARY ARTERY CALCIFICATION: Mild PLEURA: There is no pleural effusion. No pleural mass or thickening. AXILLA: No lymphadenopathy. UPPER ABDOMEN: Liver is of low attenuation due to hepatic steatosis. Visualized pancreas, spleen, adrenal glands, gallbladder are unremarkable. OSSEOUS STRUCTURES: There is kyphotic deformity of the thoracic spine with changes so DISH CT/CT chest wo IV con IMPRESSION: 1. Mild changes of centrilobular emphysema. 2. 0.3 cm nodule in the right middle lobe. 3. Granulomatous disease with calcified granulomas in the right lung 4. Mild coronary artery calcifications. 5. Hepatic steatosis. Fleischner guidelines were followed. Electronically signed by: Darren Lind MD 11/28/2023 10:52 AM EDT RP Dictated By: Darren Lind MD Signed By: <Electronically signed by Darren Lind MD in OV> 11/28/23 1052 DD/ 0820 TD/TT: 11/10/23 0836 [employer] Officer: Assessment & Plan Assessment & Plan (1) COPD (chronic obstructive pulmonary disease): Code(s): J44.9 - Chronic obstructive pulmonary disease, unspecified Category: Medical Qualifiers: COPD type: unspecified COPD Qualified Code(s): J44.9 - Chronic obstructive pulmonary disease, unspecified (2) Dyspnea: Code(s): R06.00 - Dyspnea, unspecified Category: Medical (3) Smoker: Code(s): F17.200 - Nicotine dependence, unspecified, uncomplicated Category: Social Hx (4) Morbid obesity with BMI of 45.0-49.9, adult: Code(s): E66.01 - Morbid (severe) obesity due to excess calories; Z68.42 - Body mass index [BMI] 45.0-49.9, adult Category: Medical (5) Environmental allergies: Code(s): Z91.09 - Other allergy status, other than to drugs and biological substances Category: Medical (6) Pulmonary nodule: Code(s): R91.1 - Solitary pulmonary nodule Category: Medical Plan Paula reports good control of symptoms on Breo, advised to continue and will send refills. Order for PFT entered, however patient requesing this order be sent to [facility], will enter. Reviewed chest CT which revealed emphysematous changes and 3 mm nodule of RML. Will send for repeat chest CT in one year to assess stability. Discussed smoking cessation, however patient not ready to quit yet. All questions were answered and patient is in agreement of plan. Will follow up to results or sooner if needed. Orders: Orders PFT pulmonary function test Today J44.9 - Chronic obstructive pulmonary disease, unspecified CT chest wo IV con 11 Months R91.1 - Solitary pulmonary nodule Medications: Refilled fluticasone furoate-vilanterol 100-25 mcg/dose (Breo Ellipta) 1 inh inhalation DAILY 60 ea 3RF Coding Level of Care Code Est Pt Level 4 (72826) Diagnoses Chronic obstructive pulmonary disease, unspecified COPD type J44.9 COPD type: unspecified COPD Dyspnea R06.00 Smoker F17.200 Morbid obesity with BMI of 45.0-49.9, adult E66.01; Z68.42 Environmental allergies Z91.09 Pulmonary nodule R91.1
[2023-12-01 10:24] VITALS: BP 108/60; PULSE 75; O2SAT 95; BMI 44.1
== END 2023-12-01 10:50 | disposition home or self-care (01) ==
PROVIDERS: PCP Internal Medicine; Visit Provider Nurse Practitioner Family
DX: J44.9 Chronic obstructive pulmonary disease, unspecified (principal); R06.00 Dyspnea, unspecified; F17.200 Nicotine dependence, unspecified, uncomplicated; E66.01 Morbid (severe) obesity due to excess calories; Z68.42 Body mass index [BMI] 45.0-49.9, adult; Z91.09 Other allergy status, other than to drugs and biological substances; R91.1 Solitary pulmonary nodule
CPT/HCPCS: 99214

== ENCOUNTER → 2023-12-01 09:49 | Outpatient (BNVA) | payer OTHER, SELFPAY | PROVIDERS: PCP Internal Medicine; Visit Provider Nurse Practitioner Family | DX: Z91.09 Other allergy status, other than to drugs and biological substances (principal); R91.1 Solitary pulmonary nodule | CPT/HCPCS: 99212 ==

== ENCOUNTER 2023-12-02 15:09 | Outpatient (AMB) | payer OTHER, SELFPAY ==
[2023-12-02 15:59] VITALS: BMI 44.1
--- NOTE | 2023-12-02 15:59 | A.OFFVIS_ITS ---
Vital Signs 12/02/23 15:59 Height 5 ft 3 in Weight 249 lb BMI 44.1 Intake Visit Reasons: OV-Right hand EMG review-CTS Intake Note: Paula is a 57 year old right hand dominant female who presents today for an EMG review, done 10/22/23. Patient states that she has been using her brace everyday, she was previously taking Tylenol for pain but stopped because its not helping with the symptoms. Allergies No Known Allergies [No Known Allergies*] Allergy (Verified 12/02/23 16:00) HPI HPI OV-Right hand EMG review-CTS: Details: Paula is a 57 year old right hand dominant Diabetic woman who returns for a NCS review of her right hand tingling. Her chief complaint is of pain in her right wrist & knuckles, particularly the MCP joints. She also has pain in the dorsal aspect of her right forearm She says she works at a [employer] & lifting heavier activities or overusing her hand at work causes increased soreness. She denies any numbness or tingling today in clinic, but says she has daily numbness & tingling in her [ ], worse with [ ]. She is S/P REPEAT right carpal tunnel release with me on 09/23/22. She says that she had very good relief of her symptoms with normal sensation returning to her right hand.She had her initial carpal tunnel release in ~2015. She is a smoker & has a Hx of COPD. She has a hx of uterine cancer & hysterectomy in 2022. She says she is doing well [facility] Medical History (Updated 12/03/23 @ 08:39 by Nahed Shukla NP) Tubular adenoma of colon Diverticulosis Endometrial cancer Morbid obesity with BMI of 40.0-44.9, adult Onychomycosis Elevated LFTs Smoker Vitamin D deficiency Bilateral carpal tunnel syndrome Obstructive sleep apnea Pure hypercholesterolemia Diabetes mellitus Surgical History History of robot-assisted laparoscopic hysterectomy Hx of colonoscopy History of carpal tunnel release History of nasal surgery Family History Maternal Aunt Breast cancer Daughter Hyperthyroidism Di Duy's syndrome Mental health problem Social History Housing: Apartment Alcohol intake: never Patient Tobacco Use Status: Current everyday Tobacco user Tobacco use type: Cigarette Cigarette Packs Per Day: 0.5 Cigarettes Per Day: 10 Years Smoked: 38 e-Cigarette/Vaping Use: Never Used Second Hand Smoke Exposure: Yes service: No Current occupational status: employed 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, 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 Cognitive needs: No Hearing needs: No Vision needs: Yes (Glasses) Physical Exam Vital Signs: BMI result Body Mass Index 44.1 Const General: no acute distress and alert Orientation/consciousness: patient oriented x3 Neuro General: patient oriented x3 Extrem Other: Evaluation of Right Upper Extremity: The patient is alert, oriented, and in no acute distress Neuro: Normal sensation to the tips of all digits bilaterally today in clinic No thenar or intrinsic wasting Good APB muscle belly firing and good finger cross Vascular: Cap refill brisk ROM: She can make a fist and extend all her digits No locking or catching Pain in the dorsal & volar aspect of her right wrist Pain across the right MCP joints Nerve Conduction Study: IMPRESSION: 1. This is an abnormal study. 2. Continues to show electrodiagnostic evidence for right moderate-severe median neuropathy at the wrist, consistent with carpal tunnel syndrome. 3. There is no electrodiagnostic evidence for ulnar neuropathy, brachial plexopathy, or cervical radiculopathy. CLINICAL COMMENT: Small PSWs and fibrillations suggest subacute/chronic denervation. Discussed with patient that prolonged latencies seen on nerve conduction does not return to normal quickly despite surgery. I am not able to tell if Carpal Tunnel Syndrome findings above is a new issue vs chronic ongoing. Shani Howard MD, MICHELLE 10/22/23 Psych Appearance: grossly normal Affect: normal affect Attitude: cooperative Assessment & Plan Assessment & Plan (1) Right wrist pain: Code(s): M25.531 - Pain in right wrist Category: Medical (2) Right hand pain: Code(s): M79.641 - Pain in right hand Category: Medical (3) Diabetes mellitus: Code(s): E11.9 - Type 2 diabetes mellitus without complications Category: Medical Qualifiers: Diabetes mellitus complication status: with hyperglycemia Diabetes mellitus meterman insulin use: without meterman use Diabetes mellitus type: type 2 Qualified Code(s): E11.65 - Type 2 diabetes mellitus with hyperglycemia (4) Smoker: Code(s): F17.200 - Nicotine dependence, unspecified, uncomplicated Category: Social Hx Plan Assessment & Plan: 1. Right wrist & hand pain In the dorsal & volar aspect of her wrist & MCP joints I educated her about this condition I discussed treatment options I recommend activity modification, she should limit or avoid ay heavy lifting or repetitive use activities, or other activities which cause her pain She should work on ROM exercises at home I recommend she try to modify her activities at work to minimize the duties that worsen her pain She will follow up at the next available appointment, with X-rays 3V R hand 2. Right hand tingling, S/P repeat carpal tunnel release DOS: ~2015 DOS: 09/21/22 repeat In all digits Symptoms intermittent throughout the week, worse with activity I reviewed her NCS with her It is unclear if this is a chronic condition or the beginning of developing repeat carpal tunnel syndrome. This may also be related her her hand & wrist pain I recommend activity modification at this time No operative indications warranted at this time If her symptoms increase in frequency or severity we can discuss treatment options in the future She can follow up prn Scribed for Mariel Melo MD by Ochoa Sharif, certified ophthalmic medical technician, on 12/02/23 at 4:40 PM, EST. Coding Level of Care Code Est Pt Level 3 (95563) Diagnoses Right wrist pain M25.531 Right hand pain M79.641 Type 2 diabetes mellitus with hyperglycemia, without long-term current use of insulin E11.65 Diabetes mellitus complication status: with hyperglycemia Diabetes mellitus mcfp insulin use: without mcfp use Diabetes mellitus type: type 2 Smoker F17.200
== END 2023-12-02 16:30 | disposition home or self-care (01) ==
PROVIDERS: Visit Provider Orthopaedic Surgery
DX: M25.531 Pain in right wrist (principal); M79.641 Pain in right hand; E11.65 Type 2 diabetes mellitus with hyperglycemia; F17.210 Nicotine dependence, cigarettes, uncomplicated
CPT/HCPCS: 99213

== ENCOUNTER → 2023-12-02 15:09 | Outpatient (BNVA) | payer OTHER, SELFPAY | PROVIDERS: Visit Provider Orthopaedic Surgery | DX: M25.531 Pain in right wrist (principal); M79.641 Pain in right hand; E11.65 Type 2 diabetes mellitus with hyperglycemia; F17.210 Nicotine dependence, cigarettes, uncomplicated | CPT/HCPCS: 99212 ==

== ENCOUNTER 2023-12-29 06:58 | Outpatient (REF) | payer OTHER, SELFPAY ==
[2023-12-29 07:16] LABS: MANUAL DIFF FLAG NO
[2023-12-29 07:48] LABS: Basophils Absolute Auto 0.1 X10*3/uL (0.0-0.2); Basophils Percent Auto 0.5 % (0-2); Eosinophils Absolute Auto 0.1 X10*3/uL (0.0-0.4); Eosinophils Percent Auto 1.5 % (0-4); Hematocrit 45.8 % (37.0-47.0); Hemoglobin 15.1 g/dl (12.0-16.0); Imm Gran Abs Auto 0.05 X10*3/uL (0.00-0.03); Imm Gran Pct Auto 0.5 % (0.0-0.4); Lymphocytes Absolute Auto 2.7 X10*3/uL (1.2-4.9); Mean Corpuscular Hemoglobin 29.5 pg (27.0-33.0); Mean Corpuscular Volume 89.6 fL (80.0-98.0); Mean Platelet Volume 9.9 fL (9.4-12.3); Monocytes Absolute Auto 0.5 X10*3/uL (0.1-1.2); Monocytes Percent Auto 5.2 % (2-11); Neutrophils Absolute Auto 5.8 x10*3/uL (2.0-8.3); Neutrophils Percent Auto 63.3 % (45-73); Platelet Count 253 X10*3/uL (160-400); Red Blood Count 5.11 X10*6/uL (4.20-5.50); Red Cell Distribution Width 13.7 % (11.0-16.0); White Blood Count 9.2 X10*3/uL (4.8-10.8)
[2023-12-29 07:51] LABS: Appearance Urine Clear; Color Urine Yellow; Glucose Urine UA >=1000 mg/dL (Negative); Leukocyte Esterase Urine Negative (Negative); Nitrite Urine Negative (Negative); PH 6.5 (5.0-9.0); Specific Gravity - Urine >= 1.030 (1.005-1.025); UMIC TRIGGER UACC YES; Urine Blood Negative (Negative); Urine Ketones Negative (Negative); Urine Protein Negative (Neg-Trace)
[2023-12-29 08:03] LABS: Estimated Average Glucose 154 mg/dL
[2023-12-29 08:06] LABS: Bacteria Urine None Seen (None Seen); Hyaline Casts Urine 0-2 /LPF (0-2); RBC Urine 0-2 /HPF (0-2); WBC Urine 0-5 /HPF (0-5)
[2023-12-29 08:19] LABS: Creatinine Urine 48.38 mg/dL; Microalbum/Creatinine Ratio Ur 10.3 ug/mg cr (<30)
[2023-12-29 08:35] LABS: Alanine Aminotransferase 38 U/L (0-31); Albumin Level 4.1 g/dL (3.5-5.0); Alkaline Phosphatase 118 U/L (39-117); Anion Gap 13 (12-20); Aspartate Amino Transferase 31 U/L (5-31); Bilirubin Total 0.4 mg/dL (0.0-1.0); Blood Urea Nitrogen 14 mg/dL (9-16); Calcium 9.8 mg/dL (8.4-10.2); Carbon Dioxide 29 mmol/L (22-29); Chloride 103 mmol/L (96-108); Cholesterol 162 mg/dL (<200); Estimated Glomerular Filt Rate > 60; Glucose Fasting 153 mg/dL (60-99); HDL Cholesterol 29 mg/dL (>40); LDL Cholesterol Calculated 72 mg/dL (<100); Sodium 141 mmol/L (135-145); TSH reflex Free T4 2.69 uIU/mL (0.32-4.0); Total Protein 7.9 g/dL (6.5-8.0); Triglycerides 307 mg/dL (<150)
[2023-12-29 08:41] LABS: Folate 14.9 ng/mL (> or = 4.0); Vitamin B12 859 pg/mL (200-900)
== END 2023-12-29 06:59 | disposition home or self-care (01) ==
LOC: HO.MAMMO 06:58
PROVIDERS: PCP Internal Medicine; Visit Provider Internal Medicine
DX: E78.00 Pure hypercholesterolemia, unspecified (principal); E11.65 Type 2 diabetes mellitus with hyperglycemia; Z79.84 Long term (current) use of oral hypoglycemic drugs; R79.89 Other specified abnormal findings of blood chemistry; J44.9 Chronic obstructive pulmonary disease, unspecified; G47.33 Obstructive sleep apnea (adult) (pediatric); C54.1 Malignant neoplasm of endometrium; E55.9 Vitamin D deficiency, unspecified; G56.03 Carpal tunnel syndrome, bilateral upper limbs; E53.8 Deficiency of other specified B group vitamins; R30.0 Dysuria; D64.9 Anemia, unspecified; F17.200 Nicotine dependence, unspecified, uncomplicated; E66.01 Morbid (severe) obesity due to excess calories; Z68.41 Body mass index [BMI] 40.0-44.9, adult; Z71.6 Tobacco abuse counseling; Z90.710 Acquired absence of both cervix and uterus; Z99.89 Dependence on other enabling machines and devices
CPT/HCPCS: 36415; 80053; 80061; 81001; 82043; 82306; 82570; 82607; 82746; 83036; 84443; 85025; 96127; 99212

== ENCOUNTER 2023-12-29 09:13 | Outpatient (AMB) | payer OTHER, SELFPAY ==
[2023-12-29 09:25] VITALS: BP 124/62; PULSE 88; O2SAT 94; BMI 44.9
--- NOTE | 2023-12-29 09:25 | MHC.PC.OV ---
Vital Signs 12/29/23 09:25 Height 5 ft 3 in Weight 253 lb 6 oz BMI 44.9 BP 124/62 Blood Pressure Location Lt brachial Position Sitting Pulse 88 Pulse Source Pulse Oximeter Pulse Oximetry (%) 94 Oxygen Delivery Method Room Air Intake Visit Reasons: hyperlipidemia, elevated LFTs, DM, PRISCILLA Keyboard Operator Required: No Accompanied by: Self / Same As Patient Allergies No Known Allergies [No Known Allergies*] Allergy (Verified 12/29/23 10:06) Medication List - Last Reconciled 12/29/23 by Durga Dietz MD albuterol sulfate 90 mcg/actuation (Ventolin HFA) 1 - 2 puffs inhalation Q6H PRN cholecalciferol (vitamin D3) 50 mcg PO DAILY [CPAP supplies As directed] empagliflozin (Jardiance) 25 mg PO QAM flash glucose scanning reader (FreeStyle Napoleon 14 Day [place]) As directed fluticasone furoate-vilanterol 100-25 mcg/dose (Breo Ellipta) 1 inh inhalation DAILY FreeStyle Napoleon 14 Day Sensor (flash glucose sensor) As directed NS L.ac,bul,par,rha-B.ani,doretha-inu 10 billion cell -100 mg (Probitoic Digestive Support (6 strain)) caps PO metformin ER 500 mg PO BID ur-bhv-gezxo-calcium carb-K1 400 mcg-500 mg calcium-20 mcg (Women's 50 Plus Multivitamin) 1 tab PO .QD rosuvastatin 5 mg PO DAILY 30 days Tobacco use date assessed: 12/29/23 Dental Screening Dental Screen Date: 12/29/23 Did you have a dental visit in the last 12 months?: No Did you have a dental problem in the last 6 months where you did not have access to dental care?: No Was dental information given to patient?: No HPI hyperlipidemia, elevated LFTs, DM, PRISCILLA HPI Details Patient comes in today for her follow up visit She has been having some problems with using her CPAP device at night recently as she feels that the pressure setting seems off somehow as she has been having some problems tolerating it over the past few nights States that she feels okay otherwise She denies any headaches or dizziness Denies any chest pains, no increased SOB No nausea/vomiting, no abdominal pain No change in bowel habits noted She had her follow up labs done earlier this morning - to discuss her results [facility] Medical History Tubular adenoma of colon Diverticulosis Endometrial cancer Morbid obesity with BMI of 40.0-44.9, adult Onychomycosis Elevated LFTs Smoker Vitamin D deficiency Bilateral carpal tunnel syndrome Obstructive sleep apnea Pure hypercholesterolemia Diabetes mellitus Surgical History History of robot-assisted laparoscopic hysterectomy Hx of colonoscopy History of carpal tunnel release History of nasal surgery Family History Maternal Aunt Breast cancer Daughter Hyperthyroidism Di Duy's syndrome Mental health problem Social History Housing: Apartment Alcohol intake: never Patient Tobacco Use Status: Current everyday Tobacco user Tobacco use type: Cigarette Cigarette Packs Per Day: 0.5 Cigarettes Per Day: 10 Years Smoked: 38 e-Cigarette/Vaping Use: Never Used Second Hand Smoke Exposure: Yes service: No Current occupational status: employed Current occupation: [employer], 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 1. Little interest or pleasure in doing things: not at all 2. Feeling down, depressed, or hopeless: not at all 3. Trouble falling or staying asleep, or sleeping too much: not at all 4. Feeling tired or having little energy: not at all 5. Poor appetite or overeating: not at all 6. Feeling bad about yourself - or that you are a failure or have let yourself or your family down: not at all 7. Trouble concentrating on things, such as reading the newspaper or watching television: not at all 8. Moving or speaking so slowly that other people could have noticed. Or the opposite - being so fidgety or restless that you have been moving around a lot more than usual: not at all 9. Thoughts that you would be better off or of hurting yourself in some way: not at all Total score: 0 Depression Screening Interpretation: Negative Depression Screening Done: Yes 31809 - PHQ-9 Billing: Yes Source: Developed by Drs. Gary Turcios, Brent Haji and colleagues, with an educational carolyn from [employer]. Thrive Questionnaire Date Thrive assessed: 12/29/23 I am a: Patient What is your living situation today?: I have a steady place to live Within the past 12 months, did the food you bought not last and you didn't have the money to get more?: Never true Within the past 12 months, did you worry whether your food would run out before you got money to buy more?: Never true Do you have trouble paying for medicines?: No Do you have trouble getting transportation to medical appointments?: No Do you have trouble paying your heating and electricity bill?: No Do you have trouble taking care of your child, family member or friend?: No Do you have trouble with day-to-day activities such as bathing, preparing meals, shopping, managing finances, etc.?: No Are you currently unemployed and looking for a job?: No Are you interested in more education?: No Please select the resources that you would like help with: None Currently or been in a relationship where the following occur: No concerns reported THRIVE Score: 0 AUDIT C Alcohol Use Questionnaire (AUDIT-C) 1. How often do you have a drink containing alcohol?: Never 3. How often do you have six or more drinks on one occasion?: Never Total Score: 0 Score Reviewed/Action Taken: Yes MERCEDES-7 AMB Questionnaire MERCEDES-7 Date MERCEDES - 7 assessed: 12/29/23 Feeling nervous, anxious, or on edge: 0 = Not at all Not being able to stop or control worryin = Not at all Worrying too much about different things: 0 = Not at all Trouble relaxin = Not at all Being so restless that it is hard to sit still: 0 = Not at all Becoming easily annoyed or irritable: 0 = Not at all Feeling afraid as if something awful might happen: 0 = Not at all Total MERCEDES-7 score (0-4 normal; 5-9 mild; 10-14 moderate; 15-21 severe): 0 Source: Developed by Ashly Cheung Kurt Kroenke and colleagues, with an educational carolyn from [employer]. Review of Systems Const Denies chills, Denies fatigue, Denies fever(s) and Denies headache(s) ENT Denies dysphagia, Denies dizziness, Denies otalgia, Denies headache(s), Denies neck pain, Denies odynophagia and Denies sore throat Card Denies chest pain, Denies palpitations and Reports dyspnea on exertion (mild) Resp Denies chest congestion (but chest still feels slightly tight at times - relieved with Albuterol), Denies cough, Reports dyspnea on exertion (mild) and Reports wheezing (occasionally, mostly mild) GI Denies abdominal pain, Denies constipation, Denies dysphagia, Denies heartburn, Denies diarrhea, Denies nausea, Denies odynophagia and Denies vomiting Denies difficulty voiding, Denies nocturia, Denies dysuria and Denies urinary urgency Musc Denies back pain, Denies arthralgias, Denies neck pain and Reports tingling (in both feet (on and off) and over the left thigh) Skin/Breast Denies rash Neuro Denies dizziness, Denies headache(s) and Reports tingling (in both feet (on and off) and over the left thigh) Endo Denies fatigue and Denies palpitations Aller/Immun Reports wheezing (occasionally, mostly mild) Physical exam (Primary Care) Vital Signs: Last Vital Signs Pulse 88 12/29/23 09:25 BP 124/62 12/29/23 09:25 Pulse Ox 94 12/29/23 09:25 Oxygen Delivery Method Room Air 12/29/23 09:25 BMI result Body Mass Index 44.9 Tobacco/Smoking Status: Tobacco use Status Tobacco use date assessed 12/29/23 12/29/23 09:31 Patient Tobacco Use Status Current everyday Tobacco 12/29/23 09:31 Tobacco use type Cigarette 12/29/23 09:31 e-Cigarette/Vaping Use Never Used 12/29/23 09:31 PHQ-9: PHQ-9 Score PHQ-9: Total score 0 12/29/23 09:31 Depression Screening Interpretation: Negative Thrive Assessment: Date of Thrive Assessment Date Thrive assessed 12/29/23 12/29/23 09:31 Currently or been in a relationship where the following occur: No concerns reported Const General: no acute distress and alert HENMT Throat: Yes posterior oropharynx normal and Yes tonsils normal (no TP congestion) Neck Neck: Yes no lymphadenopathy and Yes supple Thyroid: Thyroid normal Resp Auscultation: no rales, no rhonchi, no wheezes and diminished lung sounds bilateral Cardio Rate: regular rate Rhythm: regular rhythm Heart sounds: no murmurs GI Palpation (GI): Soft to palpation and nontender Auscultation: normal bowel sounds General: Yes no CVA tenderness Back/Spine/Pelvis Back: no CVA tenderness Skin Rashes: no rashes Extrem General: Yes no clubbing, cyanosis or edema Results Reviewed Results Reviewed: Laboratory Tests 12/29/23 12/29/23 07:04 07:14 WBC 9.2 Hgb 15.1 Hct 45.8 Plt Count 253 Sodium 141 Potassium 4.0 Creatinine 0.72 Estimated GFR > 60 Fasting Glucose 153 H Hemoglobin A1c % 7.0 H Calcium 9.8 AST 31 ALT 38 H Triglycerides 307 H Cholesterol 162 LDL Cholesterol, Calc 72 HDL Cholesterol 29 L Vitamin B12 859 25-OH Vitamin D Total 53.0 TSH 2.69 Ur Specific [place] >= 1.030 H Urine Protein Negative Urine Glucose (UA) >=1000 H Urine Blood Negative Urine Nitrite Negative Ur Leukocyte Esterase Negative Assessment and Plan Assessment & Plan (1) Pure hypercholesterolemia: Code(s): E78.00 - Pure hypercholesterolemia, unspecified Plan: Results of her labs done earlier today reviewed and discussed with patient - advised that her cholesterol levels remain at goal except for her triglycerides, which are still higher than recommended, likely due to her diabetes Reinforced low cholesterol diet Continue Rosuvastatin 5 mg QD Will recheck her labs and fasting lipids in 4 months for follow up (2) Diabetes mellitus: Code(s): E11.9 - Type 2 diabetes mellitus without complications Qualifiers: Diabetes mellitus type: type 2 Diabetes mellitus terminal makeup operator insulin use: without custodial use Diabetes mellitus complication status: with hyperglycemia Qualified Code(s): E11.65 - Type 2 diabetes mellitus with hyperglycemia Plan: Her HgbA1c was at 7.0% on her labs done earlier this morning (her in-office HgbA1c was at 7.8% when last checked in August 2023) - goal is at least <7.0% Reinforced diabetic diet Continue Metformin ER 500 mg BID and Jardiance 25 mg Q AM (3) Elevated LFTs: Code(s): R79.89 - Other specified abnormal findings of blood chemistry Plan: Her serum ALT is again slightly elevated on her most recent labs done earlier today - is likely due to hepatosteatosis Abdominal US done in June 2021 revealed (+) hepatomegaly and hepatic steatosis She had a liver elastography done last month (November 2023) that revealed (+) hepatomegaly. There is generalized increase in hepatic echotexture, consistent with fatty infiltration or hepatocellular disease. Characteristic pericholecystic sparing favors fatty infiltration. No focal hepatic mass or intrahepatic biliary dilatation is seen. Liver elastography measurements are consistent with a minimal risk for clinically significant liver fibrosis (METAVIR Stage F0-F1) Patient is encouraged to continue working on her diet, exercise as tolerated and lose weight Will continue to monitor her LFTs regularly (4) COPD (chronic obstructive pulmonary disease): Code(s): J44.9 - Chronic obstructive pulmonary disease, unspecified Qualifiers: COPD type: unspecified COPD Qualified Code(s): J44.9 - Chronic obstructive pulmonary disease, unspecified Plan: Chest CT done last month (November 2023) revealed (+) mild changes of centrilobular emphysema, with a 0.3 cm nodule in the right middle lobe and findings of granulomatous disease with calcified granulomas in the right lung She is scheduled for PFTs in February 2024 Continue Breo Ellipta 100-25 mcg 1 inhalation QD and Albuterol HFA 1 to 2 inhalations QID PRN Follow up with pulmonary as scheduled (5) Obstructive sleep apnea: Code(s): G47.33 - Obstructive sleep apnea (adult) (pediatric) Plan: Continue using CPAP device when sleeping at night - patient was tolerating her device well until recently, and she is now feeling that the setting is somewhat off Have advised her to reach out to Sleep Medicine and let them know about this so they can look into this - advised patient that perhaps her requirements have changed and in this case, they may need to readjust her pressure settings (6) Endometrial cancer: Comment: FIGO 1 endometrioid adenocarcinoma; S/P hysterectomy Code(s): C54.1 - Malignant neoplasm of endometrium Plan: She was diagnosed with grade 1 endometrioid adenocarcinoma during work up done for postmenopausal bleeding last year and eventually underwent robotic assisted total laparoscopic hysterectomy, BSA, SLN mapping and biopsy under general anesthesia with Dr. Raquel Overton on 10/10/23 She was reportedly advised then that she does not need any additional treatments Follow up with gynecologic oncology as scheduled (7) Vitamin D deficiency: Code(s): E55.9 - Vitamin D deficiency, unspecified Plan: Continue Vitamin D3 2000 units QD (8) Bilateral carpal tunnel syndrome: Code(s): G56.03 - Carpal tunnel syndrome, bilateral upper limbs Plan: S/P right carpal tunnel surgery in 2015 and left carpal tunnel release on 09/03/2017 - her wrist symptoms have improved significantly with surgery She had carpal tunnel surgery on her right wrist again on 09/23/2022 - states that her surgery went well and symptoms have improved with surgery Follow up with orthopedics as scheduled (9) Smoker: Code(s): F17.200 - Nicotine dependence, unspecified, uncomplicated Plan: Counseled again on complete smoking cessation in light of her COPD diagnosis - patient states that she is still working actively on trying to quit (10) Morbid obesity with BMI of 40.0-44.9, adult: Code(s): E66.01 - Morbid (severe) obesity due to excess calories; Z68.41 - Body mass index [BMI] 40.0-44.9, adult Plan: Reinforced diet/exercise as tolerated/lose weight Follow up with zigzag machine operator at [facility] [place] as scheduled Plan Follow up in 4 months Orders: Orders Lipid Panel 4 Months E78.00 - Pure hypercholesterolemia, unspecified TSH reflex Free T4 4 Months E78.00 - Pure hypercholesterolemia, unspecified UA CC w/rflx Micro + Cult 4 Months R30.0 - Dysuria Vitamin D 25-OH Total 4 Months E55.9 - Vitamin D deficiency, unspecified Hemoglobin A1c 4 Months E11.9 - Type 2 diabetes mellitus without complications Complete Blood Count Auto Diff 4 Months D64.9 - Anemia, unspecified Comprehensive [place]. Panel Fast 4 Months E78.00 - Pure hypercholesterolemia, unspecified Microalbumin, Random (w Creat) 4 Months E11.9 - Type 2 diabetes mellitus without complications Coding Level of Care Code Est Pt Level 4 (16872) Complex EM visit Add On G2211 Diagnoses Pure hypercholesterolemia E78.00 Type 2 diabetes mellitus with hyperglycemia, without long-term current use of insulin E11.65 Diabetes mellitus type: type 2 Diabetes mellitus custodial insulin use: without custodial use Diabetes mellitus complication status: with hyperglycemia Elevated LFTs R79.89 Chronic obstructive pulmonary disease, unspecified COPD type J44.9 COPD type: unspecified COPD Obstructive sleep apnea G47.33 Endometrial cancer C54.1 Vitamin D deficiency E55.9 Bilateral carpal tunnel syndrome G56.03 Smoker F17.200 Morbid obesity with BMI of 40.0-44.9, adult E66.01; Z68.41
== END 2023-12-29 10:11 | disposition home or self-care (01) ==
PROVIDERS: PCP Internal Medicine; Visit Provider Internal Medicine
DX: E11.65 Type 2 diabetes mellitus with hyperglycemia (principal); J44.9 Chronic obstructive pulmonary disease, unspecified; E66.01 Morbid (severe) obesity due to excess calories; Z68.41 Body mass index [BMI] 40.0-44.9, adult; C54.1 Malignant neoplasm of endometrium; E78.00 Pure hypercholesterolemia, unspecified; R79.89 Other specified abnormal findings of blood chemistry; G47.33 Obstructive sleep apnea (adult) (pediatric); E55.9 Vitamin D deficiency, unspecified; G56.03 Carpal tunnel syndrome, bilateral upper limbs; F17.200 Nicotine dependence, unspecified, uncomplicated

== ENCOUNTER 2024-01-07 10:39 | Outpatient (REF) | payer OTHER, SELFPAY ==
--- NOTE | ~2024-01-07 | XR_ITS ---
EXAMINATION: XR HAND RIGHT 3 VIEWS CLINICAL INFORMATION: Pain in right hand M79.641. Patient states pain is throughout the entire hand. COMPARISON: None. TECHNIQUE: PA, lateral, and oblique views of the right hand. FINDINGS: The bones and soft tissues are normal. No fracture. Alignment is anatomic. Joint spaces are maintained. No erosions or soft tissue calcifications. XR/XR hand RT min 3V IMPRESSION: Normal right hand. Electronically signed by: Jurgen Don DO 03/18/2024 11:19 AM [facility]
== END 2024-01-07 10:40 | disposition home or self-care (01) ==
LOC: HO.HOSX 10:39
PROVIDERS: Visit Provider Orthopaedic Surgery
DX: M79.641 Pain in right hand (principal); M25.531 Pain in right wrist; E11.65 Type 2 diabetes mellitus with hyperglycemia; F17.200 Nicotine dependence, unspecified, uncomplicated
CPT/HCPCS: 73130; 99212

== ENCOUNTER 2024-01-07 14:16 | Outpatient (AMB) | payer OTHER, SELFPAY ==
--- NOTE | 2024-01-07 13:23 | MHC.OFFVIS ---
Vital Signs 01/07/24 14:28 Height 5 ft 3 in Weight 253 lb 6 oz BMI 44.9 Intake Visit Reasons: OV- right hand pain follow up w/ xray Intake Note: Paula is a 58 year old female who presents today for a right hand follow up. Patient reports pain on the dorsal aspect of the right hand radiating up her forearm. She wants to make sure nothing is wrong . No other concern today. Patient denies new injuries. Allergies No Known Allergies [No Known Allergies*] Allergy (Verified 01/07/24 14:29) HPI HPI OV- right hand pain follow up w/ xray: Details: Paula is a 58-year-old [id number]-pmjj-xpeedgae woman who works in a [employer] Yesterday she was pushing a heavy cabinet door and felt some sharp pains in the dorsal aspect of her right hand extending up the right wrist. She says she came in today to get an x-ray and want to know what the x-ray showed. She is a smoker & has a Hx of COPD. She has a hx of uterine cancer & hysterectomy in 2022. She says she is doing well [facility] Medical History Tubular adenoma of colon Diverticulosis Endometrial cancer Morbid obesity with BMI of 40.0-44.9, adult Onychomycosis Elevated LFTs Smoker Vitamin D deficiency Bilateral carpal tunnel syndrome Obstructive sleep apnea Pure hypercholesterolemia Diabetes mellitus Surgical History History of robot-assisted laparoscopic hysterectomy Hx of colonoscopy History of carpal tunnel release History of nasal surgery Family History Maternal Aunt Breast cancer Daughter Hyperthyroidism Di Duy's syndrome Mental health problem Social History Housing: Apartment Alcohol intake: never Patient Tobacco Use Status: Current everyday Tobacco user Tobacco use type: Cigarette Cigarette Packs Per Day: 0.5 Cigarettes Per Day: 10 Years Smoked: 38 e-Cigarette/Vaping Use: Never Used Second Hand Smoke Exposure: Yes service: No Current occupational status: employed 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 She had no pain with resisted extension of any of the fingers or her thumb. She had no pain with resisted right wrist extension. She has no swelling and has full active wrist and hand range of motion today without pain. Of interest, on the left dorsal hand and forearm she has a 1st-2nd degree burn pattern of stripes that are approximately 2 cm in length and by about 1-1.5 cm each going from her dorsal mid forearm across the dorsal radial aspect of her hand. Evidently something at work that was very hot fell onto her left dorsal hand and forearm. This happened earlier today. She says it is pretty sore. Radiographs: Three views of the right hand were reviewed today in clinic. They show no fractures or dislocations. This is actually a fairly normal x-ray without significant degenerative changes. Nerve Conduction Study: IMPRESSION: 1. This is an abnormal study. 2. Continues to show electrodiagnostic evidence for right moderate-severe median neuropathy at the wrist, consistent with carpal tunnel syndrome. 3. There is no electrodiagnostic evidence for ulnar neuropathy, brachial plexopathy, or cervical radiculopathy. CLINICAL COMMENT: Small PSWs and fibrillations suggest subacute/chronic denervation. Discussed with patient that prolonged latencies seen on nerve conduction does not return to normal quickly despite surgery. I am not able to tell if Carpal Tunnel Syndrome findings above is a new issue vs chronic ongoing. Shani Howard MD, MICHELLE 10/22/23 Psych Appearance: grossly normal Affect: normal affect Attitude: cooperative Assessment & Plan Assessment & Plan (1) Right wrist pain: Code(s): M25.531 - Pain in right wrist Category: Medical (2) Right hand pain: Code(s): M79.641 - Pain in right hand Category: Medical (3) Diabetes mellitus: Code(s): E11.9 - Type 2 diabetes mellitus without complications Category: Medical Qualifiers: Diabetes mellitus complication status: with hyperglycemia Diabetes mellitus long term acute care registered nurse insulin use: without long term acute care registered nurse use Diabetes mellitus type: type 2 Qualified Code(s): E11.65 - Type 2 diabetes mellitus with hyperglycemia (4) Smoker: Code(s): F17.200 - Nicotine dependence, unspecified, uncomplicated Category: Social Hx Plan Assessment & Plan: 1. Right wrist & hand pain This was temporary in occurred yesterday when she was pushing a heavy door. She also has a history of episodes of pain in the dorsal aspect of her right MCP joints extending proximally over the right wrist. Her symptoms appear to have resolved today. Radiographs were negative and she appears to be doing well today. I educated her about this condition I recommend activity modification, she should limit or avoid ay heavy lifting or repetitive use activities, or other activities which cause her pain I recommend she try to modify her activities at work to minimize the duties that worsen her pain. She says she has some young man that work with her that she has helping with some of the heavier activities. 2. Right hand tingling, S/P repeat carpal tunnel release DOS: ~2015 DOS: 09/21/22 repeat In all digits Symptoms intermittent worse with activity This appears to have resolved, and was not discussed today in clinic. She can follow up prn Orders: Orders XR hand RT min 3V Today M79.641 - Pain in right hand Coding Level of Care Code Est Pt Level 3 (13070) Diagnoses Right wrist pain M25.531 Right hand pain M79.641 Type 2 diabetes mellitus with hyperglycemia, without long-term current use of insulin E11.65 Diabetes mellitus complication status: with hyperglycemia Diabetes mellitus long term acute care registered nurse insulin use: without long term acute care registered nurse use Diabetes mellitus type: type 2 Smoker F17.200
[2024-01-07 14:28] VITALS: BMI 44.9
== END 2024-01-07 14:38 | disposition home or self-care (01) ==
PROVIDERS: PCP Internal Medicine; Visit Provider Orthopaedic Surgery
DX: M25.531 Pain in right wrist (principal); M79.641 Pain in right hand; E11.65 Type 2 diabetes mellitus with hyperglycemia; F17.200 Nicotine dependence, unspecified, uncomplicated
CPT/HCPCS: 99212

== ENCOUNTER 2024-02-02 07:21 | Outpatient (REF) | payer OTHER, SELFPAY ==
--- NOTE | ~2024-02-02 | MM_ITS ---
EXAMINATION: MM SCREENING DIGITAL BREAST TOMOSYNTHESIS, BILATERAL CLINICAL INFORMATION: Screening. Asymptomatic. COMPARISON: Mammography: Comparison is made with available priors TECHNIQUE: Digital breast mammography with tomosynthesis is performed in both the craniocaudal and mediolateral oblique views along with computer-aided detection (CAD). FINDINGS: There are scattered areas of fibroglandular density (ACR BI-RADS breast composition Category b). Left focal asymmetry upper outer breast posterior depth decreased in size dating back to 2011. There are no significant masses, abnormal calcifications, or other abnormalities. MM/MM tomosynthesis screening BI IMPRESSION: No mammographic evidence of malignancy. ASSESSMENT: BI-RADS BI-RADS 2 - Benign Findings RECOMMENDATION: Routine annual mammography screening. 1 year F/U This examination should not preclude the clinical evaluation of a suspicious palpable abnormality. This patient's information was entered into a reminder system with a target due date for their next mammogram. Electronically signed by: Wen Espinoza DO 02/10/2024 08:48 AM [facility]
== END 2024-02-02 07:22 | disposition home or self-care (01) ==
LOC: HO.MAMMO 07:21
PROVIDERS: PCP Internal Medicine; Visit Provider Internal Medicine
DX: Z12.31 Encounter for screening mammogram for malignant neoplasm of breast (principal)
CPT/HCPCS: 77063; 77067

== ENCOUNTER → 2024-02-02 07:30 | Outpatient (BNV) | payer OTHER, SELFPAY | PROVIDERS: PCP Internal Medicine; Visit Provider Internal Medicine | DX: Z12.31 Encounter for screening mammogram for malignant neoplasm of breast (principal) | CPT/HCPCS: 77063; 77067 ==

== ENCOUNTER 2024-02-16 08:42 | Outpatient (AMB) | payer OTHER, SELFPAY ==
--- NOTE | 2024-02-16 08:33 | MHC.OFFVIS ---
Vital Signs 02/16/24 08:48 Height 5 ft 3 in Weight 250 lb 3.594 oz BMI 44.3 BP 114/60 Blood Pressure Location Rt brachial Position Sitting Pulse 84 Pulse Source Pulse Oximeter Pulse Oximetry (%) 93 Oxygen Delivery Method Room Air Intake Visit Reasons: Dyspnea Allergies No Known Allergies [No Known Allergies*] Allergy (Verified 02/16/24 08:50) HPI HPI Dyspnea: Details: Paula is a pleasant 58 year old female, current 1/2 ppd smoker with 80 pack year history, with underlying h/o acute respiratory failure with hypoxia 09/2023, DMII, PRISCILLA on CPAP and endometrial cancer s/p hysterectomy 2022, no chemo/radiation. She has been well controlled on Breo, requiring albuterol MDI infrequently. Today she presents to review PFT results. She denies any visits to urgent care or hospitalizations related to respiratory distress since the last visit. Of note, she is requesting this office take over CPAP therapy. DME is [facility]. She reports issues with compliance due to nasal congestion and is motivated to be more compliant. She continues to report nonrestorative sleep, daytime fatigue and loud snoring. She believes last sleep study was within the past 5 years. [facility] Medical History Tubular adenoma of colon Diverticulosis Endometrial cancer Morbid obesity with BMI of 40.0-44.9, adult Onychomycosis Elevated LFTs Smoker Vitamin D deficiency Bilateral carpal tunnel syndrome Obstructive sleep apnea Pure hypercholesterolemia Diabetes mellitus Surgical History History of robot-assisted laparoscopic hysterectomy Hx of colonoscopy History of carpal tunnel release History of nasal surgery Family History Maternal Aunt Breast cancer Daughter Hyperthyroidism Di Duy's syndrome Mental health problem Social History Housing: Apartment Alcohol intake: never Patient Tobacco Use Status: Current everyday Tobacco user Tobacco use type: Cigarette Cigarette Packs Per Day: 0.5 Cigarettes Per Day: 10 Years Smoked: 38 e-Cigarette/Vaping Use: Never Used Second Hand Smoke Exposure: Yes service: No Current occupational status: employed 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, 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 Cognitive needs: No Hearing needs: No Vision needs: Yes (Glasses) Review of Systems Const Denies chills, Denies excessive sweating, Denies fever(s), Denies headache(s) and Denies night sweats Eyes Denies dry eyes, Denies irritation and Denies itchy eyes ENT Reports Normal hearing present, Denies headache(s), Denies nasal congestion, Denies nasal discharge, Denies post nasal drip and Denies sore throat Card Denies chest pain, Denies chest pain at rest, Denies chest pain with activity, Denies claudication, Denies leg edema, Reports dyspnea on exertion, Denies orthopnea and Denies paroxysmal nocturnal dyspnea Resp Denies chest congestion, Denies cough, Denies excessive phlegm production, Denies pain on inspiration, Denies pain with cough, Reports dyspnea on exertion and Denies stridor Musc Denies myalgias Neuro Reports Normal hearing present and Denies headache(s) Endo Denies excessive sweating Gregory/Lymph Denies lymphadenopathy Aller/Immun Denies itchy eyes and Denies seasonal rhinorrhea Physical Exam Vital Signs: Last Vital Signs Pulse 84 02/16/24 08:48 BP 114/60 02/16/24 08:48 Pulse Ox 93 02/16/24 08:48 Oxygen Delivery Method Room Air 02/16/24 08:48 BMI result Body Mass Index 44.3 Const General: cooperative, healthy appearing, comfortable, no acute distress, well developed and alert Nutritional Appearance: obese Orientation/consciousness: patient oriented x3 Limitations: no limitations HEENT Head: Yes normal to inspection, Yes normocephalic and Yes atraumatic Ears: hearing grossly normal bilaterally and external ears normal Eyes General: appearance normal, both eyes and all related structures Eyelids: Yes eyelids normal Sclerae: sclerae normal EOM: EOMs intact bilaterally Neck Neck: Yes normal visual inspection and Yes no lymphadenopathy Lymphatic: no lymphadenopathy noted Chest Chest palpation & inspection: normal inspection of the chest Resp Effort & Inspection: normal respiratory effort, able to speak in complete sentences, no audible wheezes, no cough, no stridor, not tachypneic, no tripod positioning and no use of accessory muscles Auscultation: diminished lung sounds Cardio Jugular venous distension: no JVD Rate: regular rate Rhythm: regular rhythm Skin Other: warm, dry General skin exam: no rashes or lesions noted Neuro General: patient oriented x3 Cranial nerves: Yes Normal hearing present Cognition (Neuro): normal cognition Gait exam (Neuro): Normal gait present Extrem General: Yes normal to inspection, Yes capillary refill normal, Yes no clubbing, cyanosis or edema and Yes no pedal edema Psych Appearance: grossly normal and well kempt Speech and movement: Normal speech and movement present and Clear speech present Affect: normal affect Attitude: cooperative Thought process: Normal thought process present Thought content: Normal thought content present Insight: Good insight present (Psych) Judgement: Good judgement present (Psych) Results Reviewed Results Reviewed: Assessment & Plan Assessment & Plan (1) Emphysema of lung: Code(s): J43.9 - Emphysema, unspecified Category: Medical (2) Dyspnea: Code(s): R06.00 - Dyspnea, unspecified Category: Medical (3) Smoker: Code(s): F17.200 - Nicotine dependence, unspecified, uncomplicated Category: Social Hx (4) Morbid obesity with BMI of 45.0-49.9, adult: Code(s): E66.01 - Morbid (severe) obesity due to excess calories; Z68.42 - Body mass index [BMI] 45.0-49.9, adult Category: Medical (5) Environmental allergies: Code(s): Z91.09 - Other allergy status, other than to drugs and biological substances Category: Medical (6) Pulmonary nodule: Code(s): R91.1 - Solitary pulmonary nodule Category: Medical Plan Reviewed PFT which revealed normal spirometry, normal lung volumes and normal DLCO. Prior chest CT did reveal emphysematous changes and patient continues to smoke. Smoking cessation reviewed. She has trialed nicotine patches however had issues with adhesive and failed Chantix. She is willing to trial nicorette. At this time she reports good control of respiratory symptoms on Breo and albuterol MDI, advised to continue. Will send supply order to [facility] to take over prescription for CPAP. May need to send for repeat sleep study. All questions were answered and patient is in agreement of plan. Will follow up in 3 months or sooner if needed. Medications: New nicotine (polacrilex) 2 mg buccal Q2H 100 ea 0RF triamcinolone acetonide (Nasal Allergy) administer into each nostril 2 sprays intranasal DAILY 16.9 mL 1RF Coding Level of Care Code Est Pt Level 4 (99624) Diagnoses Emphysema of lung J43.9 Dyspnea R06.00 Smoker F17.200 Morbid obesity with BMI of 45.0-49.9, adult E66.01; Z68.42 Environmental allergies Z91.09 Pulmonary nodule R91.1
[2024-02-16 08:48] VITALS: BP 114/60; PULSE 84; O2SAT 93; BMI 44.3
== END 2024-02-16 09:05 | disposition home or self-care (01) ==
PROVIDERS: PCP Internal Medicine; Visit Provider Nurse Practitioner Family
DX: J43.9 Emphysema, unspecified (principal); R06.00 Dyspnea, unspecified; F17.200 Nicotine dependence, unspecified, uncomplicated; E66.01 Morbid (severe) obesity due to excess calories; Z68.42 Body mass index [BMI] 45.0-49.9, adult; Z91.09 Other allergy status, other than to drugs and biological substances; R91.1 Solitary pulmonary nodule
CPT/HCPCS: 99214

== ENCOUNTER → 2024-02-16 08:42 | Outpatient (BNVA) | payer OTHER, SELFPAY | PROVIDERS: PCP Internal Medicine; Visit Provider Nurse Practitioner Family | DX: J43.9 Emphysema, unspecified (principal); R06.00 Dyspnea, unspecified; R91.1 Solitary pulmonary nodule; E66.01 Morbid (severe) obesity due to excess calories; F17.210 Nicotine dependence, cigarettes, uncomplicated; Z91.09 Other allergy status, other than to drugs and biological substances; Z68.41 Body mass index [BMI] 40.0-44.9, adult; Z99.89 Dependence on other enabling machines and devices | CPT/HCPCS: 99212 ==

== ENCOUNTER 2024-04-26 08:34 | Outpatient (AMB) | payer OTHER, SELFPAY ==
--- NOTE | 2024-04-26 08:35 | MHC.OFFVIS ---
Vital Signs 04/26/24 08:36 Height 5 ft 3 in Weight 250 lb 0.067 oz BMI 44.3 BP 120/60 Blood Pressure Location Rt brachial Position Sitting Pulse 72 Pulse Source Pulse Oximeter Pulse Oximetry (%) 96 Oxygen Delivery Method Room Air Intake Visit Reasons: 6 month follow Elevation of liver transaminase Intake Note: ESTABLISHED PATIENT Reason; ~ 6 mos FUV. US Done. Labs via [facility] 12/2023. Changes/concerns? RUQ Pain. More flank than Abd but a chronic sx per pt. Allergies No Known Allergies [No Known Allergies*] Allergy (Verified 04/26/24 08:36) HPI HPI 6 month follow Elevation of liver transaminase: Details: LAST VISIT: Diverticulosis Status post colonoscopy Internal hemorrhoids without complication Tubular adenoma of colon Plan Colonoscopy in 3 years, sooner if clinically necessary. Patient will have ultrasound repeated. Last she ultrasound show buttock echogenicity. Will check ultrasound with elastography. Last liver enzymes normal. Diverticulosis and internal hemorrhoids found. Patient was encouraged to increase fiber in her diet, probiotics. Patient will return in 6 months. She will call our office if she will have any GI concerning symptoms. She is agreeable to this plan and verbalizes understanding of instructions. She was given the opportunity to ask questions and all questions answered thank you for allowing me to participate in her care Orders Orders US abdomen hamilton w elastography Today R74.01 TODAY'S VISIT Patient is here today for follow-up and to discuss results from abdominal ultrasound. Hepatomegaly and increase hepatic echotexture fatty sparing suggestive of fatty liver. Patient reports to have chronic right lumbar pain. Patient reports that the pain is there all the time. Not related to her meals. Patient denies having any acid reflux. Denies any dyspepsia, dysphagia or odynophagia. Patient reports that she is moving her bowel well. She changed her diet and is avoiding anything that is fried. Eating more protein. Trying to avoid carbs. Patient is trying to go for walk every day whether permitted. Patient denies any melena, hematochezia, unintentional weight loss or like stools. Patient denies any other GI concerning symptoms. [facility] Medical History (Updated 04/26/24 @ 12:[address] [facility] [place]) Hepatomegaly Tubular adenoma of colon Diverticulosis Endometrial cancer Morbid obesity with BMI of 40.0-44.9, adult Onychomycosis Elevated LFTs Smoker Vitamin D deficiency Bilateral carpal tunnel syndrome Obstructive sleep apnea Pure hypercholesterolemia Diabetes mellitus Surgical History History of robot-assisted laparoscopic hysterectomy Hx of colonoscopy History of carpal tunnel release History of nasal surgery Family History Maternal Aunt Breast cancer Daughter Hyperthyroidism Di Duy's syndrome Mental health problem Social History Housing: Apartment Alcohol intake: never Patient Tobacco Use Status: Current everyday Tobacco user Tobacco use type: Cigarette Cigarette Packs Per Day: 0.5 Cigarettes Per Day: 10 Years Smoked: 38 e-Cigarette/Vaping Use: Never Used Second Hand Smoke Exposure: Yes service: No Current occupational status: employed 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, 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 Cognitive needs: No Hearing needs: No Vision needs: Yes (Glasses) Review of Systems Const Denies weight gain and Denies weight loss ENT Reports no additional complaints, Denies dysphagia and Denies odynophagia Card Reports no additional complaints Resp Reports no additional complaints GI Denies abdominal pain, Denies belching, Denies melena, Denies bloating, Denies change in bowel habits, Denies dysphagia, Denies excessive flatus, Denies dyspepsia, Denies heartburn, Denies diarrhea, Denies loose stools, Denies nausea, Denies odynophagia and Denies vomiting Musc Reports no additional complaints Neuro Reports no additional complaints Psych Reports no additional complaints Endo Reports no additional complaints Physical Exam Vital Signs: Last Vital Signs Pulse 72 04/26/24 08:36 BP 120/60 04/26/24 08:36 Pulse Ox 96 04/26/24 08:36 Oxygen Delivery Method Room Air 04/26/24 08:36 BMI result Body Mass Index 44.3 Const General: healthy appearing, no acute distress and well developed Nutritional Appearance: obese Orientation/consciousness: patient oriented x3 Resp Effort & Inspection: normal respiratory effort, able to speak in complete sentences, no tracheal deviation and symmetric chest movement Auscultation: clear to auscultation bilaterally Cardio Rate: regular rate GI Inspection: Yes normal to inspection, No distended and Yes obesity Palpation (GI): Soft to palpation, not firm, nontender and No hepatosplenomegaly present Auscultation: normal bowel sounds General: Yes no CVA tenderness Back/Spine/Pelvis Back: no CVA tenderness Skin General skin exam: elasticity normal, turgor normal and dry skin Neuro General: patient oriented x3 Psych Appearance: grossly normal Mental Status: mental status grossly normal Results Reviewed Results Reviewed: ABDOMINAL ULTRASOUND WITH ELASTOGRAPHY FINDINGS: PANCREAS: Limited. The visualized pancreatic head and body are normal in appearance. The remainder of the pancreas is obscured from visualization by the overlying bowel gas. LIVER: The liver demonstrates normal contour and increased echogenicity, 1))). No focal lesion or intrahepatic biliary duct dilatation. The right lobe measures 23.7 cm in length. The left lobe measures 12.8 cm in length. There is hepatopedal portal venous flow. Shear wave elastography provides a median stiffness of 1.31 m/s (reference: normal median stiffness is 0.81 - 1.22 m/s). The IQR/median stiffness to assess sampling precision is 0.15 (reference: optimal IQR/median stiffness is under 0.3). GALLBLADDER: Normal. The gallbladder is physiologically distended without evidence of stones, sludge, polyps, wall thickening or pericholecystic fluid. COMMON BILE DUCT: Normal in caliber measuring 0.3 cm in diameter. RIGHT KIDNEY: Normal. No hydronephrosis. No renal calculi or focal parenchymal lesions. The kidney measures 12.7 cm in maximum dimension. FREE FLUID: None. US/US abdomen hamilton w elastography IMPRESSION: 1. There is hepatomegaly. 2. There is generalized increase in hepatic echotexture, consistent with fatty infiltration or hepatocellular disease. Please correlate clinically. Characteristic pericholecystic sparing favors fatty infiltration. No focal hepatic mass or intrahepatic biliary dilatation is seen. 3. Elastography: Liver elastography measurements are consistent with a minimal risk for clinically significant liver fibrosis (METAVIR Stage F0-F1). Assessment & Plan Assessment & Plan (1) Diverticulosis: Code(s): K57.90 - Diverticulosis of intestine, part unspecified, without perforation or abscess without bleeding Category: Medical (2) Internal hemorrhoids without complication: Code(s): K64.8 - Other hemorrhoids (3) Hepatomegaly: Code(s): R16.0 - Hepatomegaly, not elsewhere classified Category: Medical (4) Fatty liver determined by biopsy: Code(s): K76.0 - Fatty (change of) liver, not elsewhere classified Plan Patient will continue avoiding dietary triggers. Low-fat, low-salt, low carb and high-protein diet discussed with patient. Patient will try to lose weight. Increase exercise as much as she can tolerate. Follow-up in 6 months to repeat labs and ultrasound. Patient will call the office if she will have any GI concerning symptoms. She is agreeable to this plan and verbalizes understanding of instructions. She was given the opportunity to ask questions and all questions answered. Thank you for allowing me to participate in care Orders: Orders Liver Panel Today R74.01 - Elevation of levels of liver transaminase levels Coding Level of Care Code Est Pt Level 3 (28817) Diagnoses Diverticulosis K57.90 Internal hemorrhoids without complication K64.8 Hepatomegaly R16.0 Fatty liver determined by biopsy K76.0 Time Spent (min) 30 Comment 20 minutes spent with patient and additional 10 minutes spent reviewing her records
[2024-04-26 08:36] VITALS: BP 120/60; PULSE 72; O2SAT 96; BMI 44.3
== END 2024-04-26 09:00 | disposition home or self-care (01) ==
PROVIDERS: PCP Internal Medicine; Visit Provider Nurse Practitioner Family
DX: K57.90 Diverticulosis of intestine, part unspecified, without perforation or abscess without bleeding (principal); K64.8 Other hemorrhoids; R16.0 Hepatomegaly, not elsewhere classified; K76.0 Fatty (change of) liver, not elsewhere classified
CPT/HCPCS: 99213

== ENCOUNTER → 2024-04-26 08:34 | Outpatient (BNVA) | payer OTHER, SELFPAY | PROVIDERS: PCP Internal Medicine; Visit Provider Nurse Practitioner Family | DX: K57.90 Diverticulosis of intestine, part unspecified, without perforation or abscess without bleeding (principal); K64.8 Other hemorrhoids; K76.0 Fatty (change of) liver, not elsewhere classified; R16.0 Hepatomegaly, not elsewhere classified | CPT/HCPCS: 99212 ==

== ENCOUNTER 2024-05-03 07:31 | Outpatient (REF) | payer OTHER, SELFPAY ==
[2024-05-03 07:50] LABS: MANUAL DIFF FLAG NO
[2024-05-03 07:57] LABS: Basophils Absolute Auto 0.1 X10*3/uL (0.0-0.2); Basophils Percent Auto 0.5 % (0-2); Eosinophils Absolute Auto 0.1 X10*3/uL (0.0-0.4); Eosinophils Percent Auto 1.4 % (0-4); Hematocrit 47.8 % (37.0-47.0); Hemoglobin 15.7 g/dl (12.0-16.0); Imm Gran Abs Auto 0.11 X10*3/uL (0.00-0.03); Imm Gran Pct Auto 1.1 % (0.0-0.4); Lymphocytes Percent Auto 30.6 % (20-40); Mean Corpuscular HGB Conc 32.8 g/dl (31.0-35.0); Mean Corpuscular Hemoglobin 29.7 pg (27.0-33.0); Mean Corpuscular Volume 90.4 fL (80.0-98.0); Mean Platelet Volume 9.4 fL (9.4-12.3); Monocytes Absolute Auto 0.5 X10*3/uL (0.1-1.2); Monocytes Percent Auto 4.8 % (2-11); Neutrophils Percent Auto 61.6 % (45-73); Platelet Count 232 X10*3/uL (160-400); Red Blood Count 5.29 X10*6/uL (4.20-5.50); Red Cell Distribution Width 13.7 % (11.0-16.0); White Blood Count 9.7 X10*3/uL (4.8-10.8)
[2024-05-03 08:07] LABS: Estimated Average Glucose 151 mg/dL; Hemoglobin A1C 205.7281 umol/L; Hemoglobin A1c % 6.9 % (<6.0)
[2024-05-03 08:19] LABS: Appearance Urine Clear; Color Urine Yellow; Glucose Urine UA >=1000 mg/dL (Negative); Leukocyte Esterase Urine Negative (Negative); Nitrite Urine Negative (Negative); Specific Gravity - Urine >= 1.030 (1.005-1.025); UMIC TRIGGER UACC YES; Urine Blood Negative (Negative); Urine Ketones Negative (Negative); Urine Protein Negative (Neg-Trace)
[2024-05-03 08:26] LABS: Alanine Aminotransferase 31 U/L (0-31); Albumin Level 4.2 g/dL (3.5-5.0); Alkaline Phosphatase 110 U/L (39-117); Anion Gap 9 (12-20); Aspartate Amino Transferase 27 U/L (5-31); Bilirubin Total 0.3 mg/dL (0.0-1.0); Blood Urea Nitrogen 14 mg/dL (9-16); Calcium 9.3 mg/dL (8.4-10.2); Carbon Dioxide 26 mmol/L (22-29); Chloride 108 mmol/L (96-108); Cholesterol 175 mg/dL (<200); Estimated Glomerular Filt Rate > 60; Glucose Fasting 134 mg/dL (60-99); HDL Cholesterol 33 mg/dL (>40); LDL Cholesterol Calculated 91 mg/dL (<100); Potassium 4.6 mmol/L (3.3-5.1); Sodium 138 mmol/L (135-145); Total Protein 8.2 g/dL (6.5-8.0); Triglycerides 259 mg/dL (<150)
[2024-05-03 08:40] LABS: Bacteria Urine None Seen (None Seen); Hyaline Casts Urine 0-2 /LPF (0-2); RBC Urine 0-2 /HPF (0-2); WBC Urine 0-5 /HPF (0-5)
[2024-05-03 08:41] LABS: Vitamin D 25-OH Total 63.1 ng/mL (>30)
[2024-05-03 09:38] LABS: Microalbum/Creatinine Ratio Ur 19.5 ug/mg cr (<30)
== END 2024-05-03 07:32 | disposition home or self-care (01) ==
LOC: HO.LAB 07:31
PROVIDERS: PCP Internal Medicine; Visit Provider Internal Medicine
DX: D64.9 Anemia, unspecified (principal); E55.9 Vitamin D deficiency, unspecified; E11.9 Type 2 diabetes mellitus without complications; E78.00 Pure hypercholesterolemia, unspecified
CPT/HCPCS: 36415; 80053; 80061; 81001; 81003; 82043; 82306; 82570; 83036; 84443; 85025

== ENCOUNTER 2024-05-10 08:19 | Outpatient (AMB) | payer OTHER, SELFPAY ==
--- NOTE | 2024-05-10 08:21 | MHC.PC.OV ---
Vital Signs 05/10/24 08:23 Height 5 ft 3 in Weight 248 lb BMI 43.9 BP 118/72 Blood Pressure Location Lt brachial Position Sitting Pulse 69 Pulse Source Pulse Oximeter Pulse Oximetry (%) 94 Oxygen Delivery Method Room Air Intake Visit Reasons: COPD, PRISCILLA, DM, hyperlipidemia Intake Note: Patient is here to follow up on GUM MAKER, PRISCILLA, DM, HLD. Assortment Planner Required: No On Air Announcer: Not Required per policy Accompanied by: Self / Same As Patient Allergies No Known Allergies [No Known Allergies*] Allergy (Verified 05/10/24 09:15) Medication List - Last Reconciled 05/10/24 by Durga Dietz MD albuterol sulfate 90 mcg/actuation (Ventolin HFA) 1 - 2 puffs inhalation Q6H PRN cholecalciferol (vitamin D3) 50 mcg PO DAILY [CPAP supplies As directed] empagliflozin (Jardiance) 25 mg PO QAM flash glucose scanning reader (FreeStyle Napoleon 14 Day [place]) As directed fluticasone furoate-vilanterol 100-25 mcg/dose (Breo Ellipta) 1 inh inhalation DAILY FreeStyle Napoleon 14 Day Sensor (flash glucose sensor) As directed NS L.ac,bul,par,rha-B.ani,doretha-inu 10 billion cell -100 mg (Probitoic Digestive Support (6 strain)) caps PO metformin ER 500 mg PO BID gg-zlr-obdsa-calcium carb-K1 400 mcg-500 mg calcium-20 mcg (Women's 50 Plus Multivitamin) 1 tab PO .QD nicotine (polacrilex) 2 mg buccal Q2H rosuvastatin 5 mg PO DAILY 30 days triamcinolone acetonide (Nasal Allergy) 2 sprays intranasal DAILY Tobacco use date assessed: 05/10/24 Dental Screening Dental Screen Date: 05/10/24 Did you have a dental visit in the last 12 months?: Yes Did you have a dental problem in the last 6 months where you did not have access to dental care?: No Was dental information given to patient?: Patient has dentist HPI COPD, PRISCILLA, DM, hyperlipidemia HPI Details Patient comes in today for her follow up visit States that she feels okay She denies any headaches or dizziness Denies any chest pains, no increased SOB No nausea/vomiting, no abdominal pain No change in bowel habits noted She had her follow up labs done last week - to discuss her results [facility] Medical History Elevated LFTs Hepatomegaly Tubular adenoma of colon Diverticulosis Endometrial cancer Morbid obesity with BMI of 40.0-44.9, adult Onychomycosis Smoker Vitamin D deficiency Bilateral carpal tunnel syndrome Obstructive sleep apnea Pure hypercholesterolemia Diabetes mellitus Surgical History History of robot-assisted laparoscopic hysterectomy Hx of colonoscopy History of carpal tunnel release History of nasal surgery Family History Maternal Aunt Breast cancer Daughter Hyperthyroidism Di Duy's syndrome Mental health problem Social History Housing: Apartment Alcohol intake: never Patient Tobacco Use Status: Current everyday Tobacco user Tobacco use type: Cigarette Cigarette Packs Per Day: 0.5 Cigarettes Per Day: 10 Years Smoked: 38 e-Cigarette/Vaping Use: Never Used Second Hand Smoke Exposure: Yes service: No Current occupational status: employed 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 1. Little interest or pleasure in doing things: not at all 2. Feeling down, depressed, or hopeless: not at all 3. Trouble falling or staying asleep, or sleeping too much: not at all 4. Feeling tired or having little energy: not at all 5. Poor appetite or overeating: not at all 6. Feeling bad about yourself - or that you are a failure or have let yourself or your family down: not at all 7. Trouble concentrating on things, such as reading the newspaper or watching television: not at all 8. Moving or speaking so slowly that other people could have noticed. Or the opposite - being so fidgety or restless that you have been moving around a lot more than usual: not at all 9. Thoughts that you would be better off or of hurting yourself in some way: not at all Total score: 0 Depression Screening Interpretation: Negative Depression Screening Done: Yes 52492 - PHQ-9 Billing: Yes Source: Developed by Drs. Gary Turcios, Ashly Shabazz, Brent Maurice and colleagues, with an educational carolyn from [employer]. Thrive Questionnaire Date Thrive assessed: 05/10/24 I am a: Patient What is your living situation today?: I have a steady place to live Within the past 12 months, did the food you bought not last and you didn't have the money to get more?: Never true Within the past 12 months, did you worry whether your food would run out before you got money to buy more?: Never true Do you have trouble paying for medicines?: No Do you have trouble getting transportation to medical appointments?: No Do you have trouble paying your heating and electricity bill?: No Do you have trouble taking care of your child, family member or friend?: No Do you have trouble with day-to-day activities such as bathing, preparing meals, shopping, managing finances, etc.?: No Are you currently unemployed and looking for a job?: No Are you interested in more education?: No Please select the resources that you would like help with: None Currently or been in a relationship where the following occur: No concerns reported THRIVE Score: 0 AUDIT C Alcohol Use Questionnaire (AUDIT-C) 1. How often do you have a drink containing alcohol?: Never 3. How often do you have six or more drinks on one occasion?: Never Total Score: 0 Score Reviewed/Action Taken: Yes MERCEDES-7 AMB Questionnaire MERCEDES-7 Date MERCEDES - 7 assessed: 05/10/24 Feeling nervous, anxious, or on edge: 0 = Not at all Not being able to stop or control worryin = Not at all Worrying too much about different things: 0 = Not at all Trouble relaxin = Not at all Being so restless that it is hard to sit still: 0 = Not at all Becoming easily annoyed or irritable: 0 = Not at all Feeling afraid as if something awful might happen: 0 = Not at all Total MERCEDES-7 score (0-4 normal; 5-9 mild; 10-14 moderate; 15-21 severe): 0 Source: Developed by Ashly Cheung Kurt Kroenke and colleagues, with an educational carolyn from [employer]. Review of Systems Const Denies chills, Denies fatigue, Denies fever(s) and Denies headache(s) ENT Denies dysphagia, Denies dizziness, Denies otalgia, Denies headache(s), Denies neck pain, Denies odynophagia and Denies sore throat Card Denies chest pain, Denies palpitations and Reports dyspnea on exertion (mild) Resp Denies chest congestion, Denies cough, Reports dyspnea on exertion (mild) and Denies wheezing GI Denies abdominal pain, Denies constipation, Denies dysphagia, Denies heartburn, Denies diarrhea, Denies nausea, Denies odynophagia and Denies vomiting Denies difficulty voiding, Denies nocturia, Denies dysuria and Denies urinary urgency Musc Denies back pain, Denies arthralgias, Denies neck pain and Reports tingling (in both feet (on and off) and over the left thigh) Skin/Breast Denies rash Neuro Denies dizziness, Denies headache(s) and Reports tingling (in both feet (on and off) and over the left thigh) Endo Denies fatigue and Denies palpitations Aller/Immun Denies wheezing Physical exam (Primary Care) Vital Signs: Last Vital Signs Pulse 69 05/10/24 08:23 BP 118/72 05/10/24 08:23 Pulse Ox 94 05/10/24 08:23 Oxygen Delivery Method Room Air 05/10/24 08:23 BMI result Body Mass Index 43.9 Tobacco/Smoking Status: Tobacco use Status Tobacco use date assessed 05/10/24 05/10/24 08:25 Patient Tobacco Use Status Current everyday Tobacco 05/10/24 08:25 Tobacco use type Cigarette 05/10/24 08:25 e-Cigarette/Vaping Use Never Used 05/10/24 08:25 PHQ-9: PHQ-9 Score PHQ-9: Total score 0 05/10/24 08:48 Depression Screening Interpretation: Negative Thrive Assessment: Date of Thrive Assessment Date Thrive assessed 05/10/24 05/10/24 08:25 Currently or been in a relationship where the following occur: No concerns reported Const General: no acute distress and alert HENMT Ears: TM's normal bilaterally and EAC's normal Throat: Yes posterior oropharynx normal and Yes tonsils normal (no TP congestion) Neck Neck: Yes supple and No lymphadenopathy Thyroid: Thyroid normal Resp Auscultation: no rales, no rhonchi, no wheezes and diminished lung sounds (slightly) bilateral Cardio Rate: regular rate Rhythm: regular rhythm Heart sounds: no murmurs GI Palpation (GI): Soft to palpation and nontender Auscultation: normal bowel sounds General: Yes no CVA tenderness Back/Spine/Pelvis Back: no CVA tenderness Thoracic/Lumbar Spine: No lumbar spinal tenderness Skin Rashes: no rashes Extrem General: Yes no clubbing, cyanosis or edema Results Reviewed Results Reviewed: Laboratory Tests 05/03/24 05/03/24 07:43 07:48 WBC 9.7 Hgb 15.7 Hct 47.8 H Plt Count 232 Sodium 138 Potassium 4.6 Creatinine 0.71 Estimated GFR > 60 Fasting Glucose 134 H Hemoglobin A1c % 6.9 H Calcium 9.3 AST 27 ALT 31 Triglycerides 259 H Cholesterol 175 LDL Cholesterol, Calc 91 HDL Cholesterol 33 L 25-OH Vitamin D Total 63.1 TSH 2.50 Ur Specific [place] >= 1.030 H Urine Protein Negative Urine Glucose (UA) >=1000 H Urine Blood Negative Urine Nitrite Negative Ur Leukocyte Esterase Negative Microalb/Creat Ratio 19.5 Coding Level of Care Code Est Pt Level 4 (54204) Diagnoses Pure hypercholesterolemia E78.00 Type 2 diabetes mellitus with hyperglycemia, without long-term current use of insulin E11.65 Diabetes mellitus type: type 2 Diabetes mellitus long filler cigar roller machine insulin use: without longterm use Diabetes mellitus complication status: with hyperglycemia Elevated LFTs R79.89 Chronic obstructive pulmonary disease, unspecified COPD type J44.9 COPD type: unspecified COPD Obstructive sleep apnea G47.33 Endometrial cancer C54.1 Vitamin D deficiency E55.9 Bilateral carpal tunnel syndrome G56.03 Smoker F17.200 Morbid obesity with BMI of 40.0-44.9, adult E66.01; Z68.41 Additional Codes PHQ-9 - 89842 - PHQ-9 Billing: Yes ([id number]) Assessment & Plan Assessment & Plan (1) Pure hypercholesterolemia: Code(s): E78.00 - Pure hypercholesterolemia, unspecified Category: Medical Plan: Results of her labs done last week reviewed and discussed with patient Reinforced low cholesterol diet Continue Rosuvastatin 5 mg QD Will recheck her labs and fasting lipids in 4 months for follow up (2) Diabetes mellitus: Code(s): E11.9 - Type 2 diabetes mellitus without complications Category: Medical Qualifiers: Diabetes mellitus type: type 2 Diabetes mellitus long filler cigar roller machine insulin use: without long filler cigar roller machine use Diabetes mellitus complication status: with hyperglycemia Qualified Code(s): E11.65 - Type 2 diabetes mellitus with hyperglycemia Plan: Her HgbA1c was at 6.9% on her labs done last week (was at 7.0% a few months ago) - goal is at least <7.0% Reinforced diabetic diet Continue Metformin ER 500 mg BID and Jardiance 25 mg Q AM (3) Elevated LFTs: Code(s): R79.89 - Other specified abnormal findings of blood chemistry Category: Medical Plan: Her LFTs were normal on her recent labs - was likely due to hepatosteatosis Abdominal US done in June 2021 revealed (+) hepatomegaly and hepatic steatosis She had a liver elastography done in November 2023 that revealed (+) hepatomegaly. There is generalized increase in hepatic echotexture, consistent with fatty infiltration or hepatocellular disease. Characteristic pericholecystic sparing favors fatty infiltration. No focal hepatic mass or intrahepatic biliary dilatation is seen. Liver elastography measurements are consistent with a minimal risk for clinically significant liver fibrosis (METAVIR Stage F0-F1) Patient is encouraged to continue working on her diet, exercise and lose weight Will continue to monitor her LFTs regularly (4) COPD (chronic obstructive pulmonary disease): Code(s): J44.9 - Chronic obstructive pulmonary disease, unspecified Category: Medical Qualifiers: COPD type: unspecified COPD Qualified Code(s): J44.9 - Chronic obstructive pulmonary disease, unspecified Plan: Chest CT done in November 2023 revealed (+) mild changes of centrilobular emphysema, with a 0.3 cm nodule in the right middle lobe and findings of granulomatous disease with calcified granulomas in the right lung PFTs done in February 2024 came out as normal spirometry with no significant response to bronchodilators Continue Breo Ellipta 100-25 mcg 1 inhalation QD and Albuterol HFA 1 to 2 inhalations QID PRN Follow up with pulmonary as scheduled (5) Obstructive sleep apnea: Code(s): G47.33 - Obstructive sleep apnea (adult) (pediatric) Category: Medical Plan: To continue using her CPAP device when sleeping at night - patient states that she feels well-rested the next morning when she uses her CPAP at night Follow up with Sleep Medicine as scheduled (6) Endometrial cancer: Comment: FIGO 1 endometrioid adenocarcinoma; S/P hysterectomy Code(s): C54.1 - Malignant neoplasm of endometrium Category: Medical Plan: She was diagnosed with grade 1 endometrioid adenocarcinoma during work up done for postmenopausal bleeding last year and eventually underwent robotic assisted total laparoscopic hysterectomy, BSA, SLN mapping and biopsy under general anesthesia with Dr. Raquel Overton on 01/14/23 She was reportedly advised then that she does not need any additional treatments Follow up with gynecologic oncology as scheduled (7) Vitamin D deficiency: Code(s): E55.9 - Vitamin D deficiency, unspecified Category: Medical Plan: Continue Vitamin D3 2000 units QD (8) Bilateral carpal tunnel syndrome: Code(s): G56.03 - Carpal tunnel syndrome, bilateral upper limbs Category: Medical Plan: S/P right carpal tunnel surgery in 2015 and left carpal tunnel release on 09/03/2017 - her wrist symptoms have improved significantly with surgery She had carpal tunnel surgery on her right wrist again on 09/23/2022 - states that her surgery went well and symptoms have improved with surgery Follow up with orthopedics as scheduled (9) Smoker: Code(s): F17.200 - Nicotine dependence, unspecified, uncomplicated Category: Social Hx Plan: Patient is counseled again to continue working on complete smoking cessation in light of her COPD diagnosis - patient states that she is still working actively on trying to quit smoking (10) Morbid obesity with BMI of 40.0-44.9, adult: Code(s): E66.01 - Morbid (severe) obesity due to excess calories; Z68.41 - Body mass index [BMI] 40.0-44.9, adult Category: Medical Plan: Reinforced diet/exercise as tolerated/lose weight 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 Panel Fast 4 Months E78.00 - Pure hypercholesterolemia, unspecified TSH reflex Free T4 4 Months E78.00 - Pure hypercholesterolemia, unspecified UA CC w/rflx Micro + Cult 4 Months R30.0 - Dysuria Complete Blood Count Auto Diff 4 Months D64.9 - Anemia, unspecified Hemoglobin A1c 4 Months E11.9 - Type 2 diabetes mellitus without complications Vitamin D 25-OH Total 4 Months E55.9 - Vitamin D deficiency, unspecified Vitamin B12 and Folate 4 Months E53.8 - Deficiency of other specified B group vitamins
[2024-05-10 08:23] VITALS: BP 118/72; PULSE 69; O2SAT 94; BMI 43.9
== END 2024-05-10 09:30 | disposition home or self-care (01) ==
PROVIDERS: PCP Internal Medicine; Visit Provider Internal Medicine
DX: E11.65 Type 2 diabetes mellitus with hyperglycemia (principal); J44.9 Chronic obstructive pulmonary disease, unspecified; E66.01 Morbid (severe) obesity due to excess calories; Z68.41 Body mass index [BMI] 40.0-44.9, adult; C54.1 Malignant neoplasm of endometrium; E78.00 Pure hypercholesterolemia, unspecified; R79.89 Other specified abnormal findings of blood chemistry; G47.33 Obstructive sleep apnea (adult) (pediatric); E55.9 Vitamin D deficiency, unspecified; G56.03 Carpal tunnel syndrome, bilateral upper limbs; F17.200 Nicotine dependence, unspecified, uncomplicated

== ENCOUNTER → 2024-05-10 08:19 | Outpatient (BNVA) | payer OTHER, SELFPAY | PROVIDERS: PCP Internal Medicine; Visit Provider Internal Medicine | DX: E78.00 Pure hypercholesterolemia, unspecified (principal); E11.65 Type 2 diabetes mellitus with hyperglycemia; R79.89 Other specified abnormal findings of blood chemistry; J44.9 Chronic obstructive pulmonary disease, unspecified; G47.33 Obstructive sleep apnea (adult) (pediatric); C54.1 Malignant neoplasm of endometrium; E55.9 Vitamin D deficiency, unspecified; G56.03 Carpal tunnel syndrome, bilateral upper limbs; E66.01 Morbid (severe) obesity due to excess calories; Z68.41 Body mass index [BMI] 40.0-44.9, adult; F17.200 Nicotine dependence, unspecified, uncomplicated; Z71.6 Tobacco abuse counseling; Z71.3 Dietary counseling and surveillance | CPT/HCPCS: 96127; 99212 ==

== ENCOUNTER 2024-05-17 08:54 | Outpatient (AMB) | payer OTHER, SELFPAY ==
--- NOTE | 2024-05-16 12:32 | MHC.OFFVIS ---
Vital Signs 05/17/24 09:00 Height 5 ft 3 in Weight 249 lb 1.957 oz BMI 44.1 BP 116/64 Blood Pressure Location Lt brachial Position Sitting Pulse 70 Pulse Source Pulse Oximeter Pulse Oximetry (%) 94 Oxygen Delivery Method Room Air Intake Visit Reasons: Dyspnea Security Flex Utility Officer Required: No Disposal Operator: Disposal Operator offered & declined Accompanied by: Self / Same As Patient Allergies No Known Allergies [No Known Allergies*] Allergy (Verified 05/17/24 09:03) Medication List - Last Reconciled 05/17/24 by Tamia Valera LPN albuterol sulfate 90 mcg/actuation (Ventolin HFA) 1 - 2 puffs inhalation Q6H PRN cholecalciferol (vitamin D3) 50 mcg PO DAILY [CPAP supplies As directed] empagliflozin (Jardiance) 25 mg PO QAM flash glucose scanning reader (FreeStyle Napoleon 14 Day [place]) As directed fluticasone furoate-vilanterol 100-25 mcg/dose (Breo Ellipta) 1 inh inhalation DAILY FreeStyle Napoleon 14 Day Sensor (flash glucose sensor) As directed ANA L.ac,bul,par,rha-B.ani,doretha-inu 10 billion cell -100 mg (Probitoic Digestive Support (6 strain)) caps PO metformin ER 500 mg PO BID ih-cjx-ikntt-calcium carb-K1 400 mcg-500 mg calcium-20 mcg (Women's 50 Plus Multivitamin) 1 tab PO .QD nicotine (polacrilex) 2 mg buccal Q2H rosuvastatin 5 mg PO DAILY 30 days triamcinolone acetonide (Nasal Allergy) 2 sprays intranasal DAILY HPI HPI Dyspnea: Details: Paula is a pleasant 58 year old female, current 1/2 ppd smoker with 80 pack year history, with underlying h/o acute respiratory failure with hypoxia 09/2023, DMII, PRISCILLA on CPAP and endometrial cancer s/p hysterectomy 2022, no chemo/radiation. At baseline, she reports good control of respiratory symptoms on Breo 100 mcg, requiring albuterol MDI infrequently. She denies any visits to urgent care or hospitalizations related to respiratory distress since the last visit. Awaiting in lab sleep titration study as she continues to report nonrestorative sleep, daytime fatigue and loud snoring despite CPAP therapy. DME is [facility]. At the last visit, she was prescribed Nicorette unfortunately has not used and continues to smoke about 1/[address] [facility] Medical History Elevated LFTs Hepatomegaly Tubular adenoma of colon Diverticulosis Endometrial cancer Morbid obesity with BMI of 40.0-44.9, adult Onychomycosis Smoker Vitamin D deficiency Bilateral carpal tunnel syndrome Obstructive sleep apnea Pure hypercholesterolemia Diabetes mellitus Surgical History History of robot-assisted laparoscopic hysterectomy Hx of colonoscopy History of carpal tunnel release History of nasal surgery Family History Maternal Aunt Breast cancer Daughter Hyperthyroidism Di Duy's syndrome Mental health problem Social History Housing: Apartment Alcohol intake: never Patient Tobacco Use Status: Current everyday Tobacco user Tobacco use type: Cigarette Cigarette Packs Per Day: 0.5 Cigarettes Per Day: 10 Years Smoked: 38 e-Cigarette/Vaping Use: Never Used Second Hand Smoke Exposure: Yes service: No Current occupational status: employed 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, 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 Cognitive needs: No Hearing needs: No Vision needs: Yes (Glasses) Review of Systems Const Denies chills, Denies excessive sweating, Denies fever(s), Denies headache(s) and Denies night sweats Eyes Denies dry eyes, Denies irritation and Denies itchy eyes ENT Reports Normal hearing present, Denies headache(s), Denies nasal congestion, Denies nasal discharge, Denies post nasal drip and Denies sore throat Card Denies chest pain, Denies chest pain at rest, Denies chest pain with activity, Denies claudication, Denies leg edema, Denies dyspnea, Denies dyspnea on exertion, Denies orthopnea and Denies paroxysmal nocturnal dyspnea Resp Denies chest congestion, Denies cough, Denies excessive phlegm production, Denies pain on inspiration, Denies pain with cough, Denies dyspnea, Denies dyspnea on exertion, Denies stridor and Denies wheezing Musc Denies myalgias Neuro Reports Normal hearing present and Denies headache(s) Endo Denies excessive sweating Gregory/Lymph Denies lymphadenopathy Aller/Immun Denies itchy eyes, Denies seasonal rhinorrhea and Denies wheezing Physical Exam Vital Signs: Last Vital Signs Pulse 70 05/17/24 09:00 BP 116/64 05/17/24 09:00 Pulse Ox 94 05/17/24 09:00 Oxygen Delivery Method Room Air 05/17/24 09:00 BMI result Body Mass Index 44.1 Const General: cooperative, healthy appearing, comfortable, no acute distress, well developed and alert Nutritional Appearance: obese Orientation/consciousness: patient oriented x3 Limitations: no limitations HEENT Head: Yes normal to inspection, Yes normocephalic and Yes atraumatic Ears: hearing grossly normal bilaterally and external ears normal Eyes General: appearance normal, both eyes and all related structures Eyelids: Yes eyelids normal Sclerae: sclerae normal EOM: EOMs intact bilaterally Neck Neck: Yes normal visual inspection and Yes no lymphadenopathy Lymphatic: no lymphadenopathy noted Chest Chest palpation & inspection: normal inspection of the chest Resp Effort & Inspection: normal respiratory effort, able to speak in complete sentences, no audible wheezes, no cough, no stridor, not tachypneic, no tripod positioning and no use of accessory muscles Auscultation: diminished lung sounds Cardio Jugular venous distension: no JVD Rate: regular rate Rhythm: regular rhythm Skin Other: warm, dry General skin exam: no rashes or lesions noted Neuro General: patient oriented x3 Cranial nerves: Yes Normal hearing present Cognition (Neuro): normal cognition Gait exam (Neuro): Normal gait present Extrem General: Yes normal to inspection, Yes capillary refill normal, Yes no clubbing, cyanosis or edema and Yes no pedal edema Psych Appearance: grossly normal and well kempt Speech and movement: Normal speech and movement present and Clear speech present Affect: normal affect Attitude: cooperative Thought process: Normal thought process present Thought content: Normal thought content present Insight: Good insight present (Psych) Judgement: Good judgement present (Psych) Assessment & Plan Assessment & Plan (1) Emphysema of lung: Code(s): J43.9 - Emphysema, unspecified Category: Medical (2) Dyspnea: Code(s): R06.00 - Dyspnea, unspecified Category: Medical (3) Smoker: Code(s): F17.200 - Nicotine dependence, unspecified, uncomplicated Category: Social Hx (4) Morbid obesity with BMI of 45.0-49.9, adult: Code(s): E66.01 - Morbid (severe) obesity due to excess calories; Z68.42 - Body mass index [BMI] 45.0-49.9, adult Category: Medical (5) Environmental allergies: Code(s): Z91.09 - Other allergy status, other than to drugs and biological substances Category: Medical (6) Pulmonary nodule: Code(s): R91.1 - Solitary pulmonary nodule Category: Medical Plan At this time she reports good control of respiratory symptoms on Breo and albuterol MDI, advised to continue. Prior chest CT did reveal 3 mm pulmonary of RML, order previously placed for 1 year follow up, to be scheduled in November 2024. Smoking cessation reviewed. Nicorette was sent at last visit, however has not used, encouraged to trial. Will send for in lab titration study as she continues to report symptoms of PRISCILLA despite current CPAP therapy. All questions were answered and patient is in agreement of plan. Will follow up in 3 months or sooner if needed. Orders: Orders RT PSG in-lab sleep titration 05/16/24 G47.33 - Obstructive sleep apnea (adult) (pediatric), G47.8 - Other sleep disorders, R40.0 - Somnolence Coding Level of Care Code Est Pt Level 4 (54487) Diagnoses Emphysema of lung J43.9 Dyspnea R06.00 Smoker F17.200 Morbid obesity with BMI of 45.0-49.9, adult E66.01; Z68.42 Environmental allergies Z91.09 Pulmonary nodule R91.1
[2024-05-17 09:00] VITALS: BP 116/64; PULSE 70; O2SAT 94; BMI 44.1
== END 2024-05-17 09:13 | disposition home or self-care (01) ==
PROVIDERS: PCP Internal Medicine; Visit Provider Nurse Practitioner Family
DX: J43.9 Emphysema, unspecified (principal); R06.00 Dyspnea, unspecified; F17.200 Nicotine dependence, unspecified, uncomplicated; E66.01 Morbid (severe) obesity due to excess calories; Z68.42 Body mass index [BMI] 45.0-49.9, adult; Z91.09 Other allergy status, other than to drugs and biological substances; R91.1 Solitary pulmonary nodule
CPT/HCPCS: 99214

== ENCOUNTER → 2024-05-17 08:54 | Outpatient (BNVA) | payer OTHER, SELFPAY | PROVIDERS: PCP Internal Medicine; Visit Provider Nurse Practitioner Family | DX: Z91.09 Other allergy status, other than to drugs and biological substances (principal); J43.9 Emphysema, unspecified; R06.00 Dyspnea, unspecified; R91.1 Solitary pulmonary nodule; E66.01 Morbid (severe) obesity due to excess calories; F17.210 Nicotine dependence, cigarettes, uncomplicated; Z68.41 Body mass index [BMI] 40.0-44.9, adult | CPT/HCPCS: 99212 ==

== ENCOUNTER → 2024-07-02 20:30 | Outpatient (REF) | payer OTHER, SELFPAY | LOC: HO.SL 20:30 | PROVIDERS: PCP Internal Medicine; Visit Provider Nurse Practitioner Family | DX: G47.33 Obstructive sleep apnea (adult) (pediatric) (principal); R40.0 Somnolence; G47.8 Other sleep disorders | CPT/HCPCS: 95810 ==

== ENCOUNTER → 2024-07-02 21:46 | Outpatient (BNV) | payer OTHER, SELFPAY | PROVIDERS: PCP Internal Medicine; Visit Provider Internal Medicine | DX: G47.33 Obstructive sleep apnea (adult) (pediatric) (principal) | CPT/HCPCS: 95810 ==

== ENCOUNTER 2024-08-16 09:29 | Outpatient (AMB) | payer OTHER, SELFPAY ==
--- NOTE | 2024-08-16 09:31 | A.OFFVIS_ITS ---
Vital Signs 08/16/24 09:32 Height 5 ft 3 in Weight 254 lb 10.142 oz BMI 45.1 BP 118/62 Blood Pressure Location Rt brachial Position Sitting Pulse 84 Pulse Source Pulse Oximeter Pulse Oximetry (%) 94 Oxygen Delivery Method Room Air Intake Visit Reasons: Dyspnea Allergies No Known Allergies [No Known Allergies*] Allergy (Verified 08/16/24 09:35) HPI HPI Dyspnea: Details: Paula is a pleasant 58 year old female, current 1/2 ppd smoker with 80 pack year history, with underlying h/o acute respiratory failure with hypoxia 09/2023, DMII, PRISCILLA on CPAP and endometrial cancer s/p hysterectomy 2022, no chemo/radiation. At baseline, she reports good control of respiratory symptoms on Breo 100 mcg, requiring albuterol MDI infrequently. She currently denies any respiratory symptoms. She denies any visits to urgent care or hospitalizations related to respiratory distress since the last visit. Today she presents to review in lab PSG. [facility] Medical History Elevated LFTs Hepatomegaly Tubular adenoma of colon Diverticulosis Endometrial cancer Morbid obesity with BMI of 40.0-44.9, adult Onychomycosis Smoker Vitamin D deficiency Bilateral carpal tunnel syndrome Obstructive sleep apnea Pure hypercholesterolemia Diabetes mellitus Surgical History History of robot-assisted laparoscopic hysterectomy Hx of colonoscopy History of carpal tunnel release History of nasal surgery Family History Maternal Aunt Breast cancer Daughter Hyperthyroidism Di Duy's syndrome Mental health problem Social History Housing: Apartment Alcohol intake: never Patient Tobacco Use Status: Current everyday Tobacco user Tobacco use type: Cigarette Cigarette Packs Per Day: 0.5 Cigarettes Per Day: 10 Years Smoked: 38 e-Cigarette/Vaping Use: Never Used Second Hand Smoke Exposure: Yes service: No Current occupational status: employed 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, 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 Cognitive needs: No Hearing needs: No Vision needs: Yes (Glasses) Review of Systems Const Denies chills, Denies excessive sweating, Denies fever(s), Denies headache(s) and Denies night sweats Eyes Denies dry eyes, Denies irritation and Denies itchy eyes ENT Reports Normal hearing present, Denies headache(s), Denies nasal congestion, Denies nasal discharge, Denies post nasal drip and Denies sore throat Card Denies chest pain, Denies chest pain at rest, Denies chest pain with activity, Denies claudication, Denies leg edema, Denies dyspnea, Denies dyspnea on exertion, Denies orthopnea and Denies paroxysmal nocturnal dyspnea Resp Denies chest congestion, Denies cough, Denies excessive phlegm production, Denies pain on inspiration, Denies pain with cough, Denies dyspnea, Denies dyspnea on exertion, Denies stridor and Denies wheezing Musc Denies myalgias Neuro Reports Normal hearing present and Denies headache(s) Endo Denies excessive sweating Gregory/Lymph Denies lymphadenopathy Aller/Immun Denies itchy eyes, Denies seasonal rhinorrhea and Denies wheezing Physical Exam Vital Signs: Last Vital Signs Pulse 84 08/16/24 09:32 BP 118/62 08/16/24 09:32 Pulse Ox 94 08/16/24 09:32 Oxygen Delivery Method Room Air 08/16/24 09:32 BMI result Body Mass Index 45.1 Const General: cooperative, healthy appearing, comfortable, no acute distress, well developed and alert Nutritional Appearance: obese Orientation/consciousness: patient oriented x3 Limitations: no limitations HEENT Head: Yes normal to inspection, Yes normocephalic and Yes atraumatic Ears: hearing grossly normal bilaterally and external ears normal Eyes General: appearance normal, both eyes and all related structures Eyelids: Yes eyelids normal Sclerae: sclerae normal EOM: EOMs intact bilaterally Neck Neck: Yes normal visual inspection and Yes no lymphadenopathy Lymphatic: no lymphadenopathy noted Chest Chest palpation & inspection: normal inspection of the chest Resp Effort & Inspection: normal respiratory effort, able to speak in complete sentences, no audible wheezes, no cough, no stridor, not tachypneic, no tripod positioning and no use of accessory muscles Auscultation: clear to auscultation bilaterally Cardio Jugular venous distension: no JVD Rate: regular rate Rhythm: regular rhythm Skin Other: warm, dry General skin exam: no rashes or lesions noted Neuro General: patient oriented x3 Cranial nerves: Yes Normal hearing present Cognition (Neuro): normal cognition Gait exam (Neuro): Normal gait present Extrem General: Yes normal to inspection, Yes capillary refill normal, Yes no clubbing, cyanosis or edema and Yes no pedal edema Psych Appearance: grossly normal and well kempt Speech and movement: Normal speech and movement present and Clear speech present Affect: normal affect Attitude: cooperative Thought process: Normal thought process present Thought content: Normal thought content present Insight: Good insight present (Psych) Judgement: Good judgement present (Psych) Assessment & Plan Assessment & Plan (1) Emphysema of lung: Code(s): J43.9 - Emphysema, unspecified Category: Medical (2) Dyspnea: Code(s): R06.00 - Dyspnea, unspecified Category: Medical (3) Smoker: Code(s): F17.200 - Nicotine dependence, unspecified, uncomplicated Category: Social Hx (4) Morbid obesity with BMI of 45.0-49.9, adult: Code(s): E66.01 - Morbid (severe) obesity due to excess calories; Z68.42 - Body mass index [BMI] 45.0-49.9, adult Category: Medical (5) Environmental allergies: Code(s): Z91.09 - Other allergy status, other than to drugs and biological substances Category: Medical (6) Pulmonary nodule: Code(s): R91.1 - Solitary pulmonary nodule Category: Medical (7) Obstructive sleep apnea: Code(s): G47.33 - Obstructive sleep apnea (adult) (pediatric) Category: Medical Plan At this time she reports good control of respiratory symptoms on Breo and albuterol MDI, advised to continue. Prior chest CT did reveal 3 mm pulmonary of RML, order previously placed for 1 year follow up, scheduled 10/2024. Smoking cessation reviewed. Reviewed sleep study results with patient which revealed mild PRISCILLA with an AHI of 13.6 and mild nocturnal hypoxemia, average 92% <88% for 29 minutes. Will send in prescription for APAP mode for replacement machine and pressure settings of 6-20 cm H20 with close monitoring for compliance and benefits. Sleep hygiene education reviewed. She is aware if there are any issues with the mask or CPAP machine, she will call the [employer] company/office. Once established on CPAP therapy will send for overnight to ensure resolution of nocturnal hypoxemia with use of CPAP. All questions were answered and patient is in agreement of plan. All questions were answered and patient is in agreement of plan. Will follow up in 3 months or sooner if needed. Medications: Refilled fluticasone furoate-vilanterol 100-25 mcg/dose (Breo Ellipta) 1 inh inhalation DAILY 60 ea 3RF albuterol sulfate 90 mcg/actuation (Ventolin HFA) 1 - 2 puffs inhalation Q6H PRN 6.7 grams 0RF shortness of breath or wheezing Coding Level of Care Code Est Pt Level 4 (96246) Diagnoses Emphysema of lung J43.9 Dyspnea R06.00 Smoker F17.200 Morbid obesity with BMI of 45.0-49.9, adult E66.01; Z68.42 Environmental allergies Z91.09 Pulmonary nodule R91.1 Obstructive sleep apnea G47.33
[2024-08-16 09:32] VITALS: BP 118/62; PULSE 84; O2SAT 94; BMI 45.1
== END 2024-08-16 09:55 | disposition home or self-care (01) ==
PROVIDERS: PCP Internal Medicine; Visit Provider Nurse Practitioner Family
DX: J43.9 Emphysema, unspecified (principal); R06.00 Dyspnea, unspecified; F17.200 Nicotine dependence, unspecified, uncomplicated; E66.01 Morbid (severe) obesity due to excess calories; Z68.42 Body mass index [BMI] 45.0-49.9, adult; Z91.09 Other allergy status, other than to drugs and biological substances; R91.1 Solitary pulmonary nodule; G47.33 Obstructive sleep apnea (adult) (pediatric)
CPT/HCPCS: 99214

== ENCOUNTER → 2024-08-16 09:29 | Outpatient (BNVA) | payer OTHER, SELFPAY | PROVIDERS: PCP Internal Medicine; Visit Provider Nurse Practitioner Family | DX: J43.9 Emphysema, unspecified (principal); Z91.09 Other allergy status, other than to drugs and biological substances; G47.33 Obstructive sleep apnea (adult) (pediatric); R06.00 Dyspnea, unspecified; F17.210 Nicotine dependence, cigarettes, uncomplicated; E66.01 Morbid (severe) obesity due to excess calories; R91.1 Solitary pulmonary nodule; Z68.42 Body mass index [BMI] 45.0-49.9, adult | CPT/HCPCS: 99212 ==

== ENCOUNTER 2024-10-04 08:23 | Outpatient (REF) | payer OTHER, SELFPAY ==
[2024-10-04 08:46] LABS: MANUAL DIFF FLAG NO
[2024-10-04 08:54] LABS: Basophils Percent Auto 0.3 % (0-2); Eosinophils Absolute Auto 0.2 X10*3/uL (0.0-0.4); Eosinophils Percent Auto 1.6 % (0-4); Hematocrit 44.3 % (37.0-47.0); Hemoglobin 14.7 g/dl (12.0-16.0); Imm Gran Pct Auto 1.1 % (0.0-0.4); Lymphocytes Percent Auto 32.2 % (20-40); Mean Corpuscular HGB Conc 33.2 g/dl (31.0-35.0); Mean Corpuscular Hemoglobin 29.9 pg (27.0-33.0); Mean Corpuscular Volume 90.2 fL (80.0-98.0); Mean Platelet Volume 9.7 fL (9.4-12.3); Monocytes Absolute Auto 0.6 X10*3/uL (0.1-1.2); Monocytes Percent Auto 6.9 % (2-11); Neutrophils Absolute Auto 5.3 x10*3/uL (2.0-8.3); Neutrophils Percent Auto 57.9 % (45-73); Platelet Count 241 X10*3/uL (160-400); Red Blood Count 4.91 X10*6/uL (4.20-5.50); White Blood Count 9.2 X10*3/uL (4.8-10.8)
[2024-10-04 09:10] LABS: Estimated Average Glucose 157 mg/dL; Hemoglobin A1c % 7.1 % (<6.0)
[2024-10-04 09:34] LABS: Alanine Aminotransferase 31 U/L (0-31); Albumin Level 4.2 g/dL (3.5-5.0); Alkaline Phosphatase 90 U/L (39-117); Anion Gap 11 (12-20); Aspartate Amino Transferase 24 U/L (5-31); Bilirubin Total 0.4 mg/dL (0.0-1.0); Blood Urea Nitrogen 14 mg/dL (9-16); Calcium 9.3 mg/dL (8.4-10.2); Carbon Dioxide 26 mmol/L (22-29); Chloride 106 mmol/L (96-108); Cholesterol 178 mg/dL (<200); Estimated Glomerular Filt Rate > 60; Glucose Fasting 117 mg/dL (60-99); HDL Cholesterol 29 mg/dL (>40); LDL Cholesterol Calculated 80 mg/dL (<100); Potassium 4.1 mmol/L (3.3-5.1); Sodium 139 mmol/L (135-145); Total Protein 7.4 g/dL (6.5-8.0); Triglycerides 345 mg/dL (<150)
[2024-10-04 09:51] LABS: TSH reflex Free T4 3.37 uIU/mL (0.32-4.0); Vitamin D 25-OH Total 46.1 ng/mL (>30)
[2024-10-04 09:59] LABS: Folate 15.5 ng/mL (> or = 4.0); Vitamin B12 707 pg/mL (200-900)
[2024-10-04 10:19] LABS: Appearance Urine Clear; Color Urine Yellow; Glucose Urine UA >=1000 mg/dL (Negative); Leukocyte Esterase Urine Negative (Negative); Nitrite Urine Negative (Negative); UMIC TRIGGER UACC YES; Urine Blood Negative (Negative); Urine Ketones Negative (Negative); Urine Protein Negative (Neg-Trace)
[2024-10-04 10:28] LABS: Bacteria Urine None Seen (None Seen); Hyaline Casts Urine 0-2 /LPF (0-2); RBC Urine 0-2 /HPF (0-2); Squamous Epithelial Cell Urine 0-2 /HPF (0-2); WBC Urine 0-5 /HPF (0-5)
[2024-10-04 11:03] LABS: Creatinine Urine 53.07 mg/dL
== END 2024-10-04 08:24 | disposition home or self-care (01) ==
LOC: HO.LAB 08:23
PROVIDERS: PCP Internal Medicine; Visit Provider Internal Medicine
DX: E78.00 Pure hypercholesterolemia, unspecified (principal); D64.9 Anemia, unspecified; E11.9 Type 2 diabetes mellitus without complications; E53.8 Deficiency of other specified B group vitamins; E55.9 Vitamin D deficiency, unspecified
CPT/HCPCS: 36415; 80053; 80061; 81001; 82043; 82306; 82570; 82607; 82746; 83036; 84443; 85025

== ENCOUNTER 2024-10-18 08:47 | Outpatient (REF) | payer OTHER, SELFPAY | END 2024-10-18 08:48 | disposition home or self-care (01) | LOC: HO.LAB 08:47 | PROVIDERS: PCP Internal Medicine; Visit Provider Nurse Practitioner Family | DX: Z13.89 Encounter for screening for other disorder (principal) ==

== ENCOUNTER 2024-10-19 07:54 | Outpatient (REF) | payer OTHER, SELFPAY ==
[2024-10-19 09:43] LABS: Appearance Urine Clear; Glucose Urine UA >=1000 mg/dL (Negative); PH 5.0 (5.0-9.0); Specific Gravity - Urine >= 1.030 (1.005-1.025); UMIC TRIGGER UACC YES
== END 2024-10-19 07:55 | disposition home or self-care (01) ==
LOC: HO.LNP 07:54
PROVIDERS: Visit Provider Internal Medicine
DX: R10.9 Unspecified abdominal pain (principal)
CPT/HCPCS: 81001

== ENCOUNTER 2024-10-25 07:57 | Outpatient (AMB) | payer OTHER, SELFPAY ==
--- NOTE | 2024-10-25 08:03 | MHC.OFFVIS ---
Vital Signs 10/25/24 08:09 Height 5 ft 3 in Weight 254 lb BMI 45.0 BP 130/62 Blood Pressure Location Rt brachial Position Sitting Pulse 84 Pulse Source Pulse Oximeter Pulse Oximetry (%) 94 Oxygen Delivery Method Room Air Intake Visit Reasons: 6 mo f.u Elevation of liver transaminase Intake Note: ESTABLISHED PATIENT for mgmt of elevated LFTs + CIC. Labs outstanding, called 10/14 regarding outstanding labs (LV). CC; C.O. new onset of rectal bleeding intermittently. Pt states that there is moderate amounts of mixed BRB and DRB PA. Pt also reports a pulsing sensation in B/L LQ of the abd. Denies any pain. 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 Low-fat, low-salt, low carb and high-protein diet discussed with patient. Patient will try to lose weight. Increase exercise as much as she can tolerate. Follow-up in 6 months to repeat labs and ultrasound. Patient will call the office if she will have any GI concerning symptoms. She is agreeable to this plan and verbalizes understanding of instructions. She was given the opportunity to ask questions and all questions answered. ? Thank you for allowing me to participate in care Orders Liver Panel Today R74.01 TODAY'S VISIT: Patient is here today for follow-up. Patient reports that she has been doing fairly well. She stopped drinking alcohol and smoking. Patient denies any abdominal pain or discomfort. Denies any nausea or vomiting. Denies dyspepsia, dysphagia or odynophagia. One episode of blood in her stool about a week ago or so. No other episodes since then. Patient denies melena, unintentional weight loss or ribbon like stools. Had colonoscopy last October. Due for colonoscopy in October of 2026. Patient reports that she has been having good appetite. Trying to change her diet. [facility] Medical History Elevated LFTs Hepatomegaly Tubular adenoma of colon Diverticulosis Endometrial cancer Morbid obesity with BMI of 40.0-44.9, adult Onychomycosis Smoker Vitamin D deficiency Bilateral carpal tunnel syndrome Obstructive sleep apnea Pure hypercholesterolemia Diabetes mellitus Surgical History History of robot-assisted laparoscopic hysterectomy Hx of colonoscopy History of carpal tunnel release History of nasal surgery Family History Maternal Aunt Breast cancer Daughter Hyperthyroidism Di Duy's syndrome Mental health problem Social History Housing: Apartment Alcohol intake: never Patient Tobacco Use Status: Current everyday Tobacco user Tobacco use type: Cigarette Cigarette Packs Per Day: 0.5 Cigarettes Per Day: 10 Years Smoked: 38 e-Cigarette/Vaping Use: Never Used Second Hand Smoke Exposure: Yes service: No Current occupational status: employed 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, 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 Cognitive needs: No Hearing needs: No Vision needs: Yes (Glasses) Review of Systems Const Denies weight gain and Denies weight loss ENT Reports no additional complaints, Denies dysphagia and Denies odynophagia Card Reports no additional complaints Resp Reports no additional complaints GI Denies abdominal pain, Denies belching, Denies melena, Denies bloating, Reports hematochezia (One episode), Denies change in bowel habits, Denies dysphagia, Denies excessive flatus, Denies dyspepsia, Denies heartburn, Denies diarrhea, Denies loose stools, Denies nausea, Denies odynophagia and Denies vomiting Musc Reports no additional complaints Neuro Reports no additional complaints Psych Reports no additional complaints Endo Reports no additional complaints Physical Exam Const General: healthy appearing, no acute distress and well developed Nutritional Appearance: obese Orientation/consciousness: patient oriented x3 Resp Effort & Inspection: normal respiratory effort, able to speak in complete sentences, no tracheal deviation and symmetric chest movement Auscultation: clear to auscultation bilaterally Cardio Rate: regular rate GI Inspection: Yes normal to inspection, No distended and Yes obesity Palpation (GI): Soft to palpation, not firm, nontender and No hepatosplenomegaly present Auscultation: normal bowel sounds General: Yes no CVA tenderness Back/Spine/Pelvis Back: no CVA tenderness Skin General skin exam: elasticity normal, turgor normal and dry skin Neuro General: patient oriented x3 Psych Appearance: grossly normal Mental Status: mental status grossly normal Assessment & Plan Assessment & Plan (1) Hepatomegaly: Code(s): R16.0 - Hepatomegaly, not elsewhere classified Category: Medical (2) Diverticulosis: Code(s): K57.90 - Diverticulosis of intestine, part unspecified, without perforation or abscess without bleeding Category: Medical (3) Tubular adenoma of colon: Code(s): D12.6 - Benign neoplasm of colon, unspecified Category: Medical (4) Internal hemorrhoid: Code(s): K64.8 - Other hemorrhoids Plan Increase fluid intake and activity to promote better bowel motility. Patient will take stool softener. Patient will increase fiber in her diet. Proctosol ordered. Patient was encouraged to eat low-fat, low carb, low-salt and high-protein diet. Patient will follow-up in 6 months. Will repeat labs and ultrasound then. Patient will call our office if she will have any GI concerning symptoms. Patient is agreeable to current plan of care and verbalizes understanding of instructions. She was given the opportunity to ask questions and all questions answered. Thank you for allowing me to participate in her care Medications: New docusate sodium 100 mg PO BEDTIME 90 caps 3RF K59.00 - Constipation, unspecified hydrocortisone 2.5% (Proctosol HC) 1 appl PA BID-QID PRN 30 grams 2RF hemorrhoids K64.9 - Unspecified hemorrhoids Coding Level of Care Code Est Pt Level 3 (48398) Diagnoses Hepatomegaly R16.0 Diverticulosis K57.90 Tubular adenoma of colon D12.6 Internal hemorrhoid K64.8 Time Spent (min) 25 Comment 15 minutes spent with patient and additional 10 minutes spent reviewing her records
[2024-10-25 08:09] VITALS: BP 130/62; PULSE 84; O2SAT 94; BMI 45.0
== END 2024-10-25 08:16 | disposition home or self-care (01) ==
LOC: HO.HGI 07:58
PROVIDERS: PCP Internal Medicine; Visit Provider Nurse Practitioner Family
DX: R16.0 Hepatomegaly, not elsewhere classified (principal); K57.90 Diverticulosis of intestine, part unspecified, without perforation or abscess without bleeding; D12.6 Benign neoplasm of colon, unspecified; K64.8 Other hemorrhoids
CPT/HCPCS: 99213

== ENCOUNTER 2024-10-25 10:44 | Outpatient (REF) | payer OTHER, SELFPAY ==
--- NOTE | ~2024-10-25 | CT_ITS ---
EXAMINATION: CT CHEST WITHOUT IV CONTRAST INDICATION: R91.1 - Solitary pulmonary nodule COMPARISON: Comparison is made with the prior examination dated 524. TECHNIQUE: Helical CT scan of the chest was performed without intravenous contrast. Coronal and sagittal reformatted images were generated and reviewed. This CT exam was performed with one or more of the following dose reduction techniques: automated exposure control, adjustment of the mA and/or kV according to patient size, use of iterative reconstruction technique. DLP: 250 mGy-cm CHEST: THYROID: The thyroid is unremarkable. LUNGS: There is mild emphysema. Again seen are scattered subcentimeter nodules including a 2-3 mm nodule at the right lung apex (series 3, image 33), 3 mm nodules in the right middle lobe (series 3, images 72 and 75), and a 6 x 4 mm nodule in the left lower lobe (series 3, image 104). Additional punctate calcified granulomas are noted. MEDIASTINUM: There is no mediastinal lymphadenopathy. TAMARA: Evaluation of the hilar regions is limited by lack of intravenous contrast material. CARDIOVASCULATURE: The heart is normal in size. There is no pericardial effusion. The thoracic aorta is normal in caliber. DEGREE OF CORONARY CALCIFICATION: mild PLEURA: There is no pleural effusion. No pneumothorax. MAIN AIRWAYS: The mainstem bronchi and proximal branches are patent. AXILLA: There is no axillary lymphadenopathy. BONES AND SOFT TISSUES: There is degenerative disc disease of the spine. UPPER ABDOMEN: The visualized portions of the liver, spleen, and adrenals have an unremarkable unenhanced appearance. CT/CT chest wo IV con IMPRESSION: 1. Bilateral subcentimeter pulmonary nodules without significant change. 2. Because mild emphysema is an independent risk factor for lung cancer, consider entering the patient into a program of yearly lung cancer screening with low dose chest CT. Electronically signed by: Gary Pradhan MD 10/25/2024 11:51 AM EDT
== END 2024-10-25 10:45 | disposition home or self-care (01) ==
LOC: HO.CT 10:44
PROVIDERS: PCP Internal Medicine; Visit Provider Nurse Practitioner Family
DX: R91.1 Solitary pulmonary nodule (principal); R16.0 Hepatomegaly, not elsewhere classified; K57.90 Diverticulosis of intestine, part unspecified, without perforation or abscess without bleeding; K64.8 Other hemorrhoids; D12.6 Benign neoplasm of colon, unspecified
CPT/HCPCS: 71250; 99212

== ENCOUNTER → 2024-10-25 10:46 | Outpatient (BNV) | payer OTHER, SELFPAY | PROVIDERS: PCP Internal Medicine; Visit Provider Radiology Diagnostic Radiology | DX: J43.9 Emphysema, unspecified (principal) | CPT/HCPCS: 71250 ==

== ENCOUNTER 2024-11-29 08:53 | Outpatient (AMB) | payer OTHER, SELFPAY ==
--- NOTE | 2024-11-29 08:58 | MHC.OFFVIS ---
Vital Signs 11/29/24 08:59 Height 5 ft 3 in Weight 254 lb 10.142 oz BMI 45.1 BP 126/74 Blood Pressure Location Rt brachial Position Sitting Pulse 79 Pulse Source Pulse Oximeter Pulse Oximetry (%) 95 Oxygen Delivery Method Room Air Intake Visit Reasons: Dyspnea Allergies No Known Allergies (No Known Allergies*) Allergy (Verified 11/29/24 09:03) HPI HPI Dyspnea: Details: Paula is a pleasant 59 year old female, current 80 pack year smoker, with underlying h/o acute respiratory failure with hypoxia 09/2023, DMII, PRISCILLA on CPAP and endometrial cancer s/p hysterectomy 2022, no chemo/radiation. She continues to report good control of respiratory symptoms on Breo 100 mcg, requiring albuterol MDI infrequently. She currently denies any respiratory symptoms. She denies any visits to urgent care or hospitalizations related to respiratory distress since the last visit. At the last visit, she was started on CPAP therapy and reports issues with compliance due to mask irritation/comfort. Today she presents to review compliance report. DME is [facility]. [facility], [facility] Medical History Elevated LFTs Hepatomegaly Tubular adenoma of colon Diverticulosis Endometrial cancer Morbid obesity with BMI of 40.0-44.9, adult Onychomycosis Smoker Vitamin D deficiency Bilateral carpal tunnel syndrome Obstructive sleep apnea Pure hypercholesterolemia Diabetes mellitus Surgical History History of robot-assisted laparoscopic hysterectomy Hx of colonoscopy History of carpal tunnel release History of nasal surgery Family History Maternal Aunt Breast cancer Daughter Hyperthyroidism Di Duy's syndrome Mental health problem Social History Housing: Apartment Alcohol intake: never Patient Tobacco Use Status: Current everyday Tobacco user Tobacco use type: Cigarette Cigarette Packs Per Day: 0.5 Cigarettes Per Day: 10 Years Smoked: 38 e-Cigarette/Vaping Use: Never Used Second Hand Smoke Exposure: Yes service: No Current occupational status: employed 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, 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 Cognitive needs: No Hearing needs: No Vision needs: Yes (Glasses) Review of Systems Const Denies chills, Denies excessive sweating, Denies fever(s), Denies headache(s) and Denies night sweats Eyes Denies dry eyes, Denies irritation and Denies itchy eyes ENT Reports Normal hearing present, Denies headache(s), Denies nasal congestion, Denies nasal discharge, Denies post nasal drip and Denies sore throat Card Denies chest pain, Denies chest pain at rest, Denies chest pain with activity, Denies claudication, Denies leg edema, Denies dyspnea, Denies dyspnea on exertion, Denies orthopnea and Denies paroxysmal nocturnal dyspnea Resp Denies chest congestion, Denies cough, Denies excessive phlegm production, Denies pain on inspiration, Denies pain with cough, Denies dyspnea, Denies dyspnea on exertion, Denies stridor and Denies wheezing Musc Denies myalgias Neuro Reports Normal hearing present and Denies headache(s) Endo Denies excessive sweating Gregory/Lymph Denies lymphadenopathy Aller/Immun Denies itchy eyes, Denies seasonal rhinorrhea and Denies wheezing Physical Exam Vital Signs: Last Vital Signs Pulse 79 11/29/24 08:59 BP 126/74 11/29/24 08:59 Pulse Ox 95 11/29/24 08:59 Oxygen Delivery Method Room Air 11/29/24 08:59 BMI result Body Mass Index 45.1 Const General: cooperative, healthy appearing, comfortable, no acute distress, well developed and alert Nutritional Appearance: obese Orientation/consciousness: patient oriented x3 Limitations: no limitations HEENT Head: Yes normal to inspection, Yes normocephalic and Yes atraumatic Ears: hearing grossly normal bilaterally and external ears normal Eyes General: appearance normal, both eyes and all related structures Eyelids: Yes eyelids normal Sclerae: sclerae normal EOM: EOMs intact bilaterally Neck Neck: Yes normal visual inspection and Yes no lymphadenopathy Lymphatic: no lymphadenopathy noted Chest Chest palpation & inspection: normal inspection of the chest Resp Effort & Inspection: normal respiratory effort, able to speak in complete sentences, no audible wheezes, no cough, no stridor, not tachypneic, no tripod positioning and no use of accessory muscles Auscultation: diminished lung sounds Cardio Jugular venous distension: no JVD Rate: regular rate Rhythm: regular rhythm Skin Other: warm, dry General skin exam: no rashes or lesions noted Neuro General: patient oriented x3 Cranial nerves: Yes Normal hearing present Cognition (Neuro): normal cognition Gait exam (Neuro): Normal gait present Extrem General: Yes normal to inspection, Yes capillary refill normal, Yes no clubbing, cyanosis or edema and Yes no pedal edema Psych Appearance: grossly normal and well kempt Speech and movement: Normal speech and movement present and Clear speech present Affect: normal affect Attitude: cooperative Thought process: Normal thought process present Thought content: Normal thought content present Insight: Good insight present (Psych) Judgement: Good judgement present (Psych) Assessment & Plan Assessment & Plan (1) Emphysema of lung: Code(s): J43.9 - Emphysema, unspecified Category: Medical (2) Dyspnea: Code(s): R06.00 - Dyspnea, unspecified Category: Medical (3) Smoker: Code(s): F17.200 - Nicotine dependence, unspecified, uncomplicated Category: Social Hx (4) Morbid obesity with BMI of 45.0-49.9, adult: Code(s): E66.01 - Morbid (severe) obesity due to excess calories; Z68.42 - Body mass index [BMI] 45.0-49.9, adult Category: Medical (5) Environmental allergies: Code(s): Z91.09 - Other allergy status, other than to drugs and biological substances Category: Medical (6) Pulmonary nodule: Code(s): R91.1 - Solitary pulmonary nodule Category: Medical (7) Obstructive sleep apnea: Code(s): G47.33 - Obstructive sleep apnea (adult) (pediatric) Category: Medical Plan At this time she reports good control of respiratory symptoms on Breo and albuterol MDI, advised to continue. Prior chest CT did reveal 3 mm pulmonary of RML, reviewed repeat chest CT from 10/2024 which revealed stable findings. Will repeat in one year to assess stability. Smoking cessation reviewed, patient considering hyponosis previously trialed NRT and Chantix with poor effect. Prior sleep study revealed mild PRISCILLA with an AHI of 13.6 and mild nocturnal hypoxemia, average 92% <88% for 29 minutes. She has been attempting to use CPAP therapy however not compliant which she attributes to difficulties with mask. She was agreeable to reach out to [facility] to trial different mask. She is motivated to continue to use CPAP therapy. Once established on CPAP therapy will send for overnight to ensure resolution of nocturnal hypoxemia with use of CPAP. All questions were answered and patient is in agreement of plan. Will follow up in 3 months or sooner if needed. Coding Level of Care Code Est Pt Level 4 (12270) Diagnoses Emphysema of lung J43.9 Dyspnea R06.00 Smoker F17.200 Morbid obesity with BMI of 45.0-49.9, adult E66.01; Z68.42 Environmental allergies Z91.09 Pulmonary nodule R91.1 Obstructive sleep apnea G47.33
[2024-11-29 08:59] VITALS: BP 126/74; PULSE 79; O2SAT 95; BMI 45.1
== END 2024-11-29 09:22 | disposition home or self-care (01) ==
LOC: HO.HPS 08:54
PROVIDERS: PCP Internal Medicine; Visit Provider Nurse Practitioner Family
DX: J43.9 Emphysema, unspecified (principal); R06.00 Dyspnea, unspecified; F17.200 Nicotine dependence, unspecified, uncomplicated; E66.01 Morbid (severe) obesity due to excess calories; Z68.42 Body mass index [BMI] 45.0-49.9, adult; Z91.09 Other allergy status, other than to drugs and biological substances; R91.1 Solitary pulmonary nodule; G47.33 Obstructive sleep apnea (adult) (pediatric)
CPT/HCPCS: 99214

== ENCOUNTER → 2024-11-29 08:53 | Outpatient (BNVA) | payer OTHER, SELFPAY | PROVIDERS: PCP Internal Medicine; Visit Provider Nurse Practitioner Family | DX: G47.33 Obstructive sleep apnea (adult) (pediatric) (principal); Z91.09 Other allergy status, other than to drugs and biological substances; J43.9 Emphysema, unspecified; R06.00 Dyspnea, unspecified; F17.200 Nicotine dependence, unspecified, uncomplicated; E66.01 Morbid (severe) obesity due to excess calories; Z68.42 Body mass index [BMI] 45.0-49.9, adult; R91.1 Solitary pulmonary nodule | CPT/HCPCS: 99212 ==

== ENCOUNTER 2025-02-07 07:30 | Outpatient (REF) | payer OTHER, SELFPAY ==
--- NOTE | ~2025-02-07 | MM_ITS ---
EXAMINATION: MM SCREENING DIGITAL BREAST TOMOSYNTHESIS, BILATERAL CLINICAL INFORMATION: Screening. Asymptomatic. COMPARISON: Mammography: Comparison is made with available priors TECHNIQUE: Digital breast mammography with tomosynthesis is performed in both the craniocaudal and mediolateral oblique views along with computer-aided detection (CAD). FINDINGS: There are scattered areas of fibroglandular density. There are no significant masses, abnormal calcifications, or other abnormalities. MM/MM tomosynthesis screening BI IMPRESSION: No mammographic evidence of malignancy. ASSESSMENT: BI-RADS Category 1: Negative RECOMMENDATION: Routine annual mammography screening. 1 year F/U This examination should not preclude the clinical evaluation of a suspicious palpable abnormality. This patient's information was entered into a reminder system with a target due date for their next mammogram. Electronically signed by: Wen Espinoza DO 02/08/2025 03:43 PM [facility]
== END 2025-02-07 07:31 | disposition home or self-care (01) ==
LOC: HO.MAMMO 07:30
PROVIDERS: PCP Internal Medicine; Visit Provider Internal Medicine
DX: J43.9 Emphysema, unspecified (principal); R06.00 Dyspnea, unspecified; E66.01 Morbid (severe) obesity due to excess calories; G47.33 Obstructive sleep apnea (adult) (pediatric); G47.34 Idiopathic sleep related nonobstructive alveolar hypoventilation; R91.1 Solitary pulmonary nodule; F17.210 Nicotine dependence, cigarettes, uncomplicated; Z68.42 Body mass index [BMI] 45.0-49.9, adult; Z91.09 Other allergy status, other than to drugs and biological substances; Z12.31 Encounter for screening mammogram for malignant neoplasm of breast
CPT/HCPCS: 77063; 77067; 99212

== ENCOUNTER → 2025-02-07 08:15 | Outpatient (BNV) | payer OTHER, SELFPAY | PROVIDERS: PCP Internal Medicine; Visit Provider Internal Medicine | DX: Z12.31 Encounter for screening mammogram for malignant neoplasm of breast (principal) | CPT/HCPCS: 77063; 77067 ==

== ENCOUNTER 2025-02-07 10:33 | Outpatient (AMB) | payer OTHER, SELFPAY ==
--- NOTE | 2025-02-07 10:40 | A.OFFVIS_ITS ---
Vital Signs 02/07/25 10:42 Height 5 ft 3 in Weight 257 lb 15.053 oz BMI 45.7 BP 126/62 Blood Pressure Location Rt brachial Position Sitting Pulse 97 Pulse Source Pulse Oximeter Pulse Oximetry (%) 93 Oxygen Delivery Method Room Air Intake Visit Reasons: Dyspnea Allergies No Known Allergies (No Known Allergies*) Allergy (Verified 02/07/25 10:46) HPI HPI Dyspnea: Details: Paula is a pleasant 59 year old female, current 80 pack year smoker, with underlying h/o acute respiratory failure with hypoxia 09/2023, DMII, PRISCILLA on CPAP and endometrial cancer s/p hysterectomy 2022, no chemo/radiation. She continues to report good control of respiratory symptoms on Breo 100 mcg, requiring albuterol MDI infrequently. She currently denies any respiratory symptoms. She denies any visits to urgent care or hospitalizations related to respiratory distress since the last visit. She has been using CPAP therapy for mild PRISCILLA, AHI 13.6, with mild nocturnal hypoxemia, <88% 29 minutes. She continues to report poor compliance due to masks issues. D[facility] is [facility] Medical History Elevated LFTs Hepatomegaly Tubular adenoma of colon Diverticulosis Endometrial cancer Morbid obesity with BMI of 40.0-44.9, adult Onychomycosis Smoker Vitamin D deficiency Bilateral carpal tunnel syndrome Obstructive sleep apnea Pure hypercholesterolemia Diabetes mellitus Surgical History History of robot-assisted laparoscopic hysterectomy Hx of colonoscopy History of carpal tunnel release History of nasal surgery Family History Maternal Aunt Breast cancer Daughter Hyperthyroidism Di Duy's syndrome Mental health problem Social History Housing: Apartment Alcohol intake: never Patient Tobacco Use Status: Current everyday Tobacco user Tobacco use type: Cigarette Cigarette Packs Per Day: 0.5 Cigarettes Per Day: 10 Years Smoked: 38 e-Cigarette/Vaping Use: Never Used Second Hand Smoke Exposure: Yes service: No Current occupational status: employed 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, 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 Cognitive needs: No Hearing needs: No Vision needs: Yes (Glasses) Review of Systems Const Denies chills, Denies excessive sweating, Denies fever(s), Denies headache(s) and Denies night sweats Eyes Denies dry eyes, Denies irritation and Denies itchy eyes ENT Reports Normal hearing present, Denies headache(s), Denies nasal congestion, Denies nasal discharge, Denies post nasal drip and Denies sore throat Card Denies chest pain, Denies chest pain at rest, Denies chest pain with activity, Denies claudication, Denies leg edema, Denies dyspnea, Denies dyspnea on exertion, Denies orthopnea and Denies paroxysmal nocturnal dyspnea Resp Denies chest congestion, Denies cough, Denies excessive phlegm production, Denies pain on inspiration, Denies pain with cough, Denies dyspnea, Denies dyspnea on exertion, Denies stridor and Denies wheezing Musc Denies myalgias Neuro Reports Normal hearing present and Denies headache(s) Endo Denies excessive sweating Gregory/Lymph Denies lymphadenopathy Aller/Immun Denies itchy eyes, Denies seasonal rhinorrhea and Denies wheezing Physical Exam Vital Signs: Last Vital Signs Pulse 97 02/07/25 10:42 BP 126/62 02/07/25 10:42 Pulse Ox 93 02/07/25 10:42 Oxygen Delivery Method Room Air 02/07/25 10:42 BMI result Body Mass Index 45.7 Const General: cooperative, healthy appearing, comfortable, no acute distress, well developed and alert Nutritional Appearance: obese Orientation/consciousness: patient oriented x3 Limitations: no limitations HEENT Head: Yes normal to inspection, Yes normocephalic and Yes atraumatic Ears: hearing grossly normal bilaterally and external ears normal Eyes General: appearance normal, both eyes and all related structures Eyelids: Yes eyelids normal Sclerae: sclerae normal EOM: EOMs intact bilaterally Neck Neck: Yes normal visual inspection and Yes no lymphadenopathy Lymphatic: no lymphadenopathy noted Chest Chest palpation & inspection: normal inspection of the chest Resp Effort & Inspection: normal respiratory effort, able to speak in complete sentences, no audible wheezes, no cough, no stridor, not tachypneic, no tripod positioning and no use of accessory muscles Auscultation: diminished lung sounds Cardio Jugular venous distension: no JVD Rate: regular rate Rhythm: regular rhythm Skin Other: warm, dry General skin exam: no rashes or lesions noted Neuro General: patient oriented x3 Cranial nerves: Yes Normal hearing present Cognition (Neuro): normal cognition Gait exam (Neuro): Normal gait present Extrem General: Yes normal to inspection, Yes capillary refill normal, Yes no clubbing, cyanosis or edema and Yes no pedal edema Psych Appearance: grossly normal and well kempt Speech and movement: Normal speech and movement present and Clear speech present Affect: normal affect Attitude: cooperative Thought process: Normal thought process present Thought content: Normal thought content present Insight: Good insight present (Psych) Judgement: Good judgement present (Psych) Assessment & Plan Assessment & Plan (1) Emphysema of lung: Code(s): J43.9 - Emphysema, unspecified Category: Medical (2) Dyspnea: Code(s): R06.00 - Dyspnea, unspecified Category: Medical (3) Smoker: Code(s): F17.200 - Nicotine dependence, unspecified, uncomplicated Category: Social Hx (4) Morbid obesity with BMI of 45.0-49.9, adult: Code(s): E66.01 - Morbid (severe) obesity due to excess calories; Z68.42 - Body mass index [BMI] 45.0-49.9, adult Category: Medical (5) Environmental allergies: Code(s): Z91.09 - Other allergy status, other than to drugs and biological substances Category: Medical (6) Pulmonary nodule: Code(s): R91.1 - Solitary pulmonary nodule Category: Medical (7) Obstructive sleep apnea: Code(s): G47.33 - Obstructive sleep apnea (adult) (pediatric) Category: Medical Plan At this time she reports good control of respiratory symptoms on Breo and a lbuterol MDI, advised to continue. Prior chest CT demonstrated 3 mm pulmonary of RML, will refer to lung screening program for further surveillance. Smoking cessation reviewed, patient considering herbal supplements, previously trialed NRT and Chantix with poor effect. Cautioned patient on potential renal and liver effects. Reviewed compliance report which continues to reveal poor compliance with >4 hours use 40% of the time, AHI 0.9 with moderate leaking. Discussed importance of compliance, >4 hours for 70% of the time. She is agreeable to use more and will reach out to [facility] to trial different masks to resolve leaking as well as improve compliance. Will also send for overnight oximetry to ensure resolution of nocturnal hypoxemia with the use of CPAP therapy. All questions were answered and patient is in agreement of plan. Will follow up in 3-6 months or sooner if needed. Orders: Orders Overnight Pulse Oximetry Today G47.34 - Idiopathic sleep related nonobstructive alveolar hypoventilation Referrals Lung Cancer Screening Referral F17.200 - Nicotine dependence, unspecified, uncomplicated Coding Level of Care Code Est Pt Level 4 (68287) Complex EM visit Add On G2211 Diagnoses Emphysema of lung J43.9 Dyspnea R06.00 Smoker F17.200 Morbid obesity with BMI of 45.0-49.9, adult E66.01; Z68.42 Environmental allergies Z91.09 Pulmonary nodule R91.1 Obstructive sleep apnea G47.33
[2025-02-07 10:42] VITALS: BP 126/62; PULSE 97; O2SAT 93; BMI 45.7
== END 2025-02-07 11:05 | disposition home or self-care (01) ==
LOC: HO.HPS 10:34
PROVIDERS: PCP Internal Medicine; Visit Provider Nurse Practitioner Family
DX: J43.9 Emphysema, unspecified (principal); R06.00 Dyspnea, unspecified; F17.200 Nicotine dependence, unspecified, uncomplicated; E66.01 Morbid (severe) obesity due to excess calories; Z68.42 Body mass index [BMI] 45.0-49.9, adult; Z91.09 Other allergy status, other than to drugs and biological substances; R91.1 Solitary pulmonary nodule; G47.33 Obstructive sleep apnea (adult) (pediatric)
CPT/HCPCS: 99214